=== PATIENT | female | born 1980 | race Caucasian/White ===

== ENCOUNTER 2016-08-13 10:22 | Outpatient (RCR) | payer BC ==
[2016-06-11 10:27] LABS: BASOPHILS % (AUTO) 0 % (0-10); EOSINOPHILS # (AUTO) 0.1 10^3/uL (0.0-0.3); EOSINOPHILS % (AUTO) 2 % (0-10); LYMPHOCYTES # (AUTO) 0.4 X 10^3 (1.0-4.0); LYMPHOCYTES % (AUTO) 9 % (12-44); MEAN CORPUSCULAR HEMOGLOBIN 33 PG (25-34); MEAN CORPUSCULAR HGB CONC 34 G/DL (32-36); MEAN CORPUSCULAR VOLUME 96 FL (80-99); MEAN PLATELET VOLUME 12.4 FL (7.4-10.4); MONOCYTES # (AUTO) 0.5 X 10^3 (0.0-1.0); MONOCYTES % (AUTO) 11 % (0-12); NEUTROPHILS # (AUTO) 3.6 X 10^3 (1.8-7.8); NEUTROPHILS % (AUTO) 78 % (42-75); PLATELET COUNT 69 10^3/uL (130-400); RED CELL DISTRIBUTION WIDTH 13.2 % (10.0-14.5); WHITE BLOOD COUNT 4.7 10^3/uL (4.3-11.0)
[2016-06-11 10:47] LABS: ALANINE AMINOTRANSFERASE 36 U/L (0-55); ALBUMIN 4.3 G/DL (3.2-4.5); ANION GAP 10 MMOL/L (5-14); ASPARTATE AMINO TRANSFERASE 64 U/L (5-34); BILIRUBIN,TOTAL 0.6 MG/DL (0.1-1.0); BLOOD UREA NITROGEN 10 MG/DL (7-18); BUN/CREATININE RATIO 13; CALCIUM 9.2 MG/DL (8.5-10.1); CARBON DIOXIDE 20 MMOL/L (21-32); CHLORIDE 108 MMOL/L (98-107); CREATININE SERUM 0.77 MG/DL (0.60-1.30); GFR ESTIMATED > 60; GLUCOSE 95 MG/DL (70-105); POTASSIUM 4.3 MMOL/L (3.6-5.0); SODIUM 138 MMOL/L (135-145); TOTAL PROTEIN 6.9 G/DL (6.4-8.2)
[2016-06-12 03:06] LABS: IMMUNOGLOBULIN IGA 45 mg/dL (71-263); IMMUNOGLOBULIN IGG 994 mg/dL (672-1680)
[2016-06-14 06:39] LABS: IMMUNOGLOBULIN IGM <10 mg/dL (47-209)
[2016-07-07 11:00] LABS: BASOPHILS % (AUTO) 0 % (0-10); EOSINOPHILS # (AUTO) 0.1 10^3/uL (0.0-0.3); EOSINOPHILS % (AUTO) 1 % (0-10); LYMPHOCYTES # (AUTO) 0.4 X 10^3 (1.0-4.0); LYMPHOCYTES % (AUTO) 10 % (12-44); MEAN CORPUSCULAR HEMOGLOBIN 32 PG (25-34); MEAN CORPUSCULAR HGB CONC 34 G/DL (32-36); MEAN CORPUSCULAR VOLUME 95 FL (80-99); MONOCYTES # (AUTO) 0.5 X 10^3 (0.0-1.0); MONOCYTES % (AUTO) 11 % (0-12); NEUTROPHILS # (AUTO) 3.3 X 10^3 (1.8-7.8); NEUTROPHILS % (AUTO) 77 % (42-75); PLATELET COUNT 83 10^3/uL (130-400); RED BLOOD COUNT 4.23 10^6/uL (4.35-5.85); RED CELL DISTRIBUTION WIDTH 13.2 % (10.0-14.5); WHITE BLOOD COUNT 4.3 10^3/uL (4.3-11.0)
[2016-07-07 11:40] LABS: ALANINE AMINOTRANSFERASE 37 U/L (0-55); ALBUMIN 4.2 G/DL (3.2-4.5); ANION GAP 8 MMOL/L (5-14); ASPARTATE AMINO TRANSFERASE 68 U/L (5-34); BILIRUBIN,TOTAL 0.5 MG/DL (0.1-1.0); BLOOD UREA NITROGEN 7 MG/DL (7-18); BUN/CREATININE RATIO 9; CALCIUM 9.4 MG/DL (8.5-10.1); CARBON DIOXIDE 24 MMOL/L (21-32); CHLORIDE 110 MMOL/L (98-107); CREATININE SERUM 0.82 MG/DL (0.60-1.30); GFR ESTIMATED > 60; GLUCOSE 100 MG/DL (70-105); SODIUM 142 MMOL/L (135-145); TOTAL PROTEIN 6.6 G/DL (6.4-8.2)
[2016-07-08 02:51] LABS: IMMUNOGLOBULIN IGA 46 mg/dL (71-263); IMMUNOGLOBULIN IGG 998 mg/dL (672-1680)
[2016-07-08 13:53] LABS: IMMUNOGLOBULIN IGM <10 mg/dL (47-209)
[~2016-08-13 10:22] MED LIST: ACETAMINOPHEN 325 MG TAB (TYLENOL) CANCER CTR ONE; ACETAMINOPHEN 500 MG TAB (TYLENOL) CANCER CTR PO PRN; CYANOCOBALAMIN INJ 1000 MCG/ML (CANCER CENTER) ONE; IMMUNE GLOBULIN,GAMMA (IGG) 200 ML IV SCH; diphenhydrAMINE 25 MG TAB (BENADRYL) CANCER CENTER PO SCH
[2016-08-13 10:34] LABS: BASOPHILS % (AUTO) 0 % (0-10); EOSINOPHILS # (AUTO) 0.1 10^3/uL (0.0-0.3); EOSINOPHILS % (AUTO) 1 % (0-10); LYMPHOCYTES # (AUTO) 0.5 X 10^3 (1.0-4.0); LYMPHOCYTES % (AUTO) 8 % (12-44); MEAN CORPUSCULAR HEMOGLOBIN 32 PG (25-34); MEAN CORPUSCULAR HGB CONC 34 G/DL (32-36); MEAN CORPUSCULAR VOLUME 95 FL (80-99); MEAN PLATELET VOLUME 11.3 FL (7.4-10.4); MONOCYTES # (AUTO) 0.8 X 10^3 (0.0-1.0); MONOCYTES % (AUTO) 11 % (0-12); NEUTROPHILS # (AUTO) 5.7 X 10^3 (1.8-7.8); NEUTROPHILS % (AUTO) 81 % (42-75); PLATELET COUNT 108 10^3/uL (130-400); RED BLOOD COUNT 4.23 10^6/uL (4.35-5.85); RED CELL DISTRIBUTION WIDTH 13.3 % (10.0-14.5); WHITE BLOOD COUNT 7.1 10^3/uL (4.3-11.0)
[2016-08-13 11:06] LABS: ALANINE AMINOTRANSFERASE 31 U/L (0-55); ALBUMIN 4.2 G/DL (3.2-4.5); ANION GAP 8 MMOL/L (5-14); ASPARTATE AMINO TRANSFERASE 56 U/L (5-34); BILIRUBIN,TOTAL 0.6 MG/DL (0.1-1.0); BLOOD UREA NITROGEN 11 MG/DL (7-18); BUN/CREATININE RATIO 12; CALCIUM 9.1 MG/DL (8.5-10.1); CARBON DIOXIDE 25 MMOL/L (21-32); CHLORIDE 106 MMOL/L (98-107); CREATININE SERUM 0.89 MG/DL (0.60-1.30); GFR ESTIMATED > 60; GLUCOSE 90 MG/DL (70-105); POTASSIUM 4.3 MMOL/L (3.6-5.0); SODIUM 139 MMOL/L (135-145); TOTAL PROTEIN 6.5 G/DL (6.4-8.2)
[2016-08-14 00:57] LABS: IMMUNOGLOBULIN IGA 42 mg/dL (71-263); IMMUNOGLOBULIN IGG 744 mg/dL (672-1680)
[2016-08-15 14:11] LABS: IMMUNOGLOBULIN IGM <10 mg/dL (47-209)
== END 2016-08-16 | disposition home or self-care (01) ==
LOC: ONC 10:22
PROVIDERS: ATTEND Internal Medicine Hematology & Oncology
DX: D83.9 Common variable immunodeficiency, unspecified (principal); D69.6 Thrombocytopenia, unspecified; K75.4 Autoimmune hepatitis; K50.90 Crohn's disease, unspecified, without complications; Z87.01 Personal history of pneumonia (recurrent); Z79.899 Other long term (current) drug therapy
CPT/HCPCS: 36415; 80053; 82784; 85025; 96365; 96366; 96372; 99213

== ENCOUNTER 2016-11-10 09:53 | Outpatient (RCR) | payer BC ==
[2016-09-13 10:42] LABS: BASOPHILS % (AUTO) 0 % (0-10); EOSINOPHILS # (AUTO) 0.1 10^3/uL (0.0-0.3); EOSINOPHILS % (AUTO) 1 % (0-10); LYMPHOCYTES # (AUTO) 0.5 X 10^3 (1.0-4.0); LYMPHOCYTES % (AUTO) 10 % (12-44); MEAN CORPUSCULAR HEMOGLOBIN 32 PG (25-34); MEAN CORPUSCULAR HGB CONC 33 G/DL (32-36); MEAN CORPUSCULAR VOLUME 96 FL (80-99); MEAN PLATELET VOLUME 11.4 FL (7.4-10.4); MONOCYTES # (AUTO) 0.6 X 10^3 (0.0-1.0); MONOCYTES % (AUTO) 12 % (0-12); NEUTROPHILS # (AUTO) 3.8 X 10^3 (1.8-7.8); NEUTROPHILS % (AUTO) 77 % (42-75); PLATELET COUNT 79 10^3/uL (130-400); RED BLOOD COUNT 3.98 10^6/uL (4.35-5.85); RED CELL DISTRIBUTION WIDTH 13.6 % (10.0-14.5); WHITE BLOOD COUNT 4.9 10^3/uL (4.3-11.0)
[2016-09-13 11:04] LABS: ALANINE AMINOTRANSFERASE 33 U/L (0-55); ANION GAP 7 MMOL/L (5-14); ASPARTATE AMINO TRANSFERASE 53 U/L (5-34); BILIRUBIN,TOTAL 0.4 MG/DL (0.1-1.0); BLOOD UREA NITROGEN 8 MG/DL (7-18); BUN/CREATININE RATIO 9; CARBON DIOXIDE 25 MMOL/L (21-32); CHLORIDE 108 MMOL/L (98-107); CREATININE SERUM 0.85 MG/DL (0.60-1.30); GFR ESTIMATED > 60; GLUCOSE 96 MG/DL (70-105); POTASSIUM 4.1 MMOL/L (3.6-5.0); SODIUM 140 MMOL/L (135-145); TOTAL PROTEIN 6.2 G/DL (6.4-8.2)
[2016-09-14 07:08] LABS: IMMUNOGLOBULIN IGA 47 mg/dL (71-263); IMMUNOGLOBULIN IGG 717 mg/dL (672-1680)
[2016-09-14 07:39] LABS: IMMUNOGLOBULIN IGM <10 mg/dL (47-209)
[2016-10-11 11:31] LABS: BASOPHILS % (AUTO) 0 % (0-10); EOSINOPHILS # (AUTO) 0.1 10^3/uL (0.0-0.3); EOSINOPHILS % (AUTO) 1 % (0-10); LYMPHOCYTES # (AUTO) 0.6 X 10^3 (1.0-4.0); LYMPHOCYTES % (AUTO) 10 % (12-44); MEAN CORPUSCULAR HEMOGLOBIN 32 PG (25-34); MEAN CORPUSCULAR HGB CONC 33 G/DL (32-36); MEAN CORPUSCULAR VOLUME 97 FL (80-99); MONOCYTES # (AUTO) 0.7 X 10^3 (0.0-1.0); MONOCYTES % (AUTO) 11 % (0-12); NEUTROPHILS # (AUTO) 4.8 X 10^3 (1.8-7.8); NEUTROPHILS % (AUTO) 77 % (42-75); PLATELET COUNT 87 10^3/uL (130-400); RED BLOOD COUNT 4.04 10^6/uL (4.35-5.85); RED CELL DISTRIBUTION WIDTH 13.6 % (10.0-14.5); WHITE BLOOD COUNT 6.3 10^3/uL (4.3-11.0)
[2016-10-11 11:56] LABS: ALANINE AMINOTRANSFERASE 32 U/L (0-55); ALBUMIN 4.1 G/DL (3.2-4.5); ANION GAP 11 MMOL/L (5-14); ASPARTATE AMINO TRANSFERASE 53 U/L (5-34); BILIRUBIN,TOTAL 0.6 MG/DL (0.1-1.0); BLOOD UREA NITROGEN 7 MG/DL (7-18); BUN/CREATININE RATIO 9; CALCIUM 9.1 MG/DL (8.5-10.1); CARBON DIOXIDE 20 MMOL/L (21-32); CHLORIDE 109 MMOL/L (98-107); CREATININE SERUM 0.82 MG/DL (0.60-1.30); GFR ESTIMATED > 60; GLUCOSE 90 MG/DL (70-105); POTASSIUM 4.2 MMOL/L (3.6-5.0); SODIUM 140 MMOL/L (135-145); TOTAL PROTEIN 6.5 G/DL (6.4-8.2)
[2016-10-12 07:14] LABS: IMMUNOGLOBULIN IGA 45 mg/dL (71-263); IMMUNOGLOBULIN IGG 765 mg/dL (672-1680)
[2016-10-12 08:05] LABS: IMMUNOGLOBULIN IGM <10 mg/dL (47-209)
[2016-11-08 11:19] LABS: BASOPHILS % (AUTO) 0 % (0-10); EOSINOPHILS # (AUTO) 0.1 10^3/uL (0.0-0.3); EOSINOPHILS % (AUTO) 2 % (0-10); LYMPHOCYTES # (AUTO) 0.6 X 10^3 (1.0-4.0); LYMPHOCYTES % (AUTO) 10 % (12-44); MEAN CORPUSCULAR HEMOGLOBIN 32 PG (25-34); MEAN CORPUSCULAR HGB CONC 33 G/DL (32-36); MEAN CORPUSCULAR VOLUME 97 FL (80-99); MEAN PLATELET VOLUME 11.5 FL (7.4-10.4); MONOCYTES # (AUTO) 0.6 X 10^3 (0.0-1.0); MONOCYTES % (AUTO) 11 % (0-12); NEUTROPHILS # (AUTO) 4.4 X 10^3 (1.8-7.8); NEUTROPHILS % (AUTO) 77 % (42-75); PLATELET COUNT 78 10^3/uL (130-400); RED BLOOD COUNT 3.81 10^6/uL (4.35-5.85); RED CELL DISTRIBUTION WIDTH 13.6 % (10.0-14.5); WHITE BLOOD COUNT 5.7 10^3/uL (4.3-11.0)
[2016-11-08 12:00] LABS: ALANINE AMINOTRANSFERASE 29 U/L (0-55); ANION GAP 8 MMOL/L (5-14); ASPARTATE AMINO TRANSFERASE 54 U/L (5-34); BILIRUBIN,TOTAL 0.7 MG/DL (0.1-1.0); BLOOD UREA NITROGEN 10 MG/DL (7-18); BUN/CREATININE RATIO 12; CARBON DIOXIDE 26 MMOL/L (21-32); CHLORIDE 107 MMOL/L (98-107); CREATININE SERUM 0.82 MG/DL (0.60-1.30); GFR ESTIMATED > 60; GLUCOSE 90 MG/DL (70-105); POTASSIUM 4.2 MMOL/L (3.6-5.0); SODIUM 141 MMOL/L (135-145); TOTAL PROTEIN 6.5 G/DL (6.4-8.2)
[2016-11-09 04:57] LABS: IMMUNOGLOBULIN IGA 41 mg/dL (71-263); IMMUNOGLOBULIN IGG 773 mg/dL (672-1680)
[2016-11-09 08:07] LABS: IMMUNOGLOBULIN IGM <10 mg/dL (47-209)
[~2016-11-10 09:53] MED LIST changes: -ACETAMINOPHEN 325 MG TAB (TYLENOL) CANCER CTR ONE
[2016-11-10] MEDS ORDERED: CYANOCOBALAMIN INJ 1000 MCG/ML (CANCER CENTER) ONE (13:16)
== END 2016-11-17 | disposition home or self-care (01) ==
LOC: ONC 09:53
PROVIDERS: ATTEND Internal Medicine Hematology & Oncology
DX: D83.9 Common variable immunodeficiency, unspecified (principal); D69.6 Thrombocytopenia, unspecified; K75.4 Autoimmune hepatitis; K50.90 Crohn's disease, unspecified, without complications; Z87.01 Personal history of pneumonia (recurrent); Z79.899 Other long term (current) drug therapy
CPT/HCPCS: 36415; 80053; 82784; 85025; 96365; 96366; 96372; 99213

== ENCOUNTER 2017-03-02 10:27 | Outpatient (RCR) | payer BC ==
[2016-12-06 09:41] LABS: BASOPHILS % (AUTO) 0 % (0-10); EOSINOPHILS # (AUTO) 0.1 10^3/uL (0.0-0.3); EOSINOPHILS % (AUTO) 2 % (0-10); LYMPHOCYTES # (AUTO) 0.5 X 10^3 (1.0-4.0); LYMPHOCYTES % (AUTO) 9 % (12-44); MEAN CORPUSCULAR HEMOGLOBIN 32 PG (25-34); MEAN CORPUSCULAR HGB CONC 33 G/DL (32-36); MEAN CORPUSCULAR VOLUME 98 FL (80-99); MEAN PLATELET VOLUME 11.6 FL (7.4-10.4); MONOCYTES # (AUTO) 0.7 X 10^3 (0.0-1.0); MONOCYTES % (AUTO) 12 % (0-12); NEUTROPHILS # (AUTO) 4.4 X 10^3 (1.8-7.8); NEUTROPHILS % (AUTO) 77 % (42-75); PLATELET COUNT 73 10^3/uL (130-400); RED BLOOD COUNT 3.85 10^6/uL (4.35-5.85); RED CELL DISTRIBUTION WIDTH 13.5 % (10.0-14.5); WHITE BLOOD COUNT 5.7 10^3/uL (4.3-11.0)
[2016-12-06 10:06] LABS: ALANINE AMINOTRANSFERASE 27 U/L (0-55); ANION GAP 7 MMOL/L (5-14); ASPARTATE AMINO TRANSFERASE 54 U/L (5-34); BILIRUBIN,TOTAL 0.4 MG/DL (0.1-1.0); BLOOD UREA NITROGEN 9 MG/DL (7-18); BUN/CREATININE RATIO 11; CALCIUM 9.1 MG/DL (8.5-10.1); CARBON DIOXIDE 25 MMOL/L (21-32); CHLORIDE 109 MMOL/L (98-107); GFR ESTIMATED > 60; GLUCOSE 92 MG/DL (70-105); SODIUM 141 MMOL/L (135-145); TOTAL PROTEIN 6.5 G/DL (6.4-8.2)
[2016-12-07 05:05] LABS: IMMUNOGLOBULIN IGA 38 mg/dL (71-263); IMMUNOGLOBULIN IGG 777 mg/dL (672-1680)
[2016-12-07 10:23] LABS: IMMUNOGLOBULIN IGM <10 mg/dL (47-209)
[2017-01-03 11:04] LABS: BASOPHILS % (AUTO) 0 % (0-10); EOSINOPHILS # (AUTO) 0.1 10^3/uL (0.0-0.3); EOSINOPHILS % (AUTO) 2 % (0-10); LYMPHOCYTES # (AUTO) 0.7 X 10^3 (1.0-4.0); LYMPHOCYTES % (AUTO) 12 % (12-44); MEAN CORPUSCULAR HEMOGLOBIN 32 PG (25-34); MEAN CORPUSCULAR HGB CONC 33 G/DL (32-36); MEAN CORPUSCULAR VOLUME 96 FL (80-99); MEAN PLATELET VOLUME 12.8 FL (7.4-10.4); MONOCYTES # (AUTO) 0.7 X 10^3 (0.0-1.0); MONOCYTES % (AUTO) 12 % (0-12); NEUTROPHILS # (AUTO) 4.1 X 10^3 (1.8-7.8); NEUTROPHILS % (AUTO) 73 % (42-75); PLATELET COUNT 80 10^3/uL (130-400); RED BLOOD COUNT 4.09 10^6/uL (4.35-5.85); RED CELL DISTRIBUTION WIDTH 13.7 % (10.0-14.5); WHITE BLOOD COUNT 5.5 10^3/uL (4.3-11.0)
[2017-01-03 11:28] LABS: ALANINE AMINOTRANSFERASE 29 U/L (0-55); ALBUMIN 4.1 G/DL (3.2-4.5); ANION GAP 10 MMOL/L (5-14); ASPARTATE AMINO TRANSFERASE 55 U/L (5-34); BILIRUBIN,TOTAL 0.5 MG/DL (0.1-1.0); BLOOD UREA NITROGEN 9 MG/DL (7-18); BUN/CREATININE RATIO 12; CALCIUM 9.1 MG/DL (8.5-10.1); CARBON DIOXIDE 24 MMOL/L (21-32); CHLORIDE 107 MMOL/L (98-107); CREATININE SERUM 0.78 MG/DL (0.60-1.30); GFR ESTIMATED > 60; GLUCOSE 91 MG/DL (70-105); POTASSIUM 4.1 MMOL/L (3.6-5.0); SODIUM 141 MMOL/L (135-145); TOTAL PROTEIN 6.7 G/DL (6.4-8.2)
[2017-01-04 05:23] LABS: IMMUNOGLOBULIN IGA 42 mg/dL (71-263); IMMUNOGLOBULIN IGG 769 mg/dL (672-1680)
[2017-01-04 08:09] LABS: IMMUNOGLOBULIN IGM <10 mg/dL (47-209)
[2017-01-27 12:43] LABS: BASOPHILS % (AUTO) 0 % (0-10); EOSINOPHILS # (AUTO) 0.1 10^3/uL (0.0-0.3); EOSINOPHILS % (AUTO) 2 % (0-10); LYMPHOCYTES # (AUTO) 0.5 X 10^3 (1.0-4.0); LYMPHOCYTES % (AUTO) 9 % (12-44); MEAN CORPUSCULAR HEMOGLOBIN 32 PG (25-34); MEAN CORPUSCULAR HGB CONC 33 G/DL (32-36); MEAN CORPUSCULAR VOLUME 98 FL (80-99); MEAN PLATELET VOLUME 12.7 FL (7.4-10.4); MONOCYTES # (AUTO) 0.7 X 10^3 (0.0-1.0); MONOCYTES % (AUTO) 13 % (0-12); NEUTROPHILS # (AUTO) 3.9 X 10^3 (1.8-7.8); NEUTROPHILS % (AUTO) 76 % (42-75); PLATELET COUNT 72 10^3/uL (130-400); RED BLOOD COUNT 4.03 10^6/uL (4.35-5.85); WHITE BLOOD COUNT 5.1 10^3/uL (4.3-11.0)
[2017-01-27 13:09] LABS: ALANINE AMINOTRANSFERASE 32 U/L (0-55); ALBUMIN 4.1 GM/DL (3.2-4.5); ANION GAP 8 MMOL/L (5-14); ASPARTATE AMINO TRANSFERASE 58 U/L (5-34); BILIRUBIN,TOTAL 0.5 MG/DL (0.1-1.0); BLOOD UREA NITROGEN 7 MG/DL (7-18); BUN/CREATININE RATIO 9 (0-20); CALCIUM 9.5 MG/DL (8.5-10.1); CARBON DIOXIDE 22 MMOL/L (21-32); CHLORIDE 110 MMOL/L (98-107); CREATININE SERUM 0.77 MG/DL (0.60-1.30); GFR ESTIMATED > 60; GLUCOSE 99 MG/DL (70-105); POTASSIUM 3.9 MMOL/L (3.6-5.0); SODIUM 140 MMOL/L (135-145); TOTAL PROTEIN 6.2 GM/DL (6.4-8.2)
[2017-01-28 04:17] LABS: IMMUNOGLOBULIN IGA 38 mg/dL (71-263); IMMUNOGLOBULIN IGG 825 mg/dL (672-1680)
[2017-01-28 07:28] LABS: IMMUNOGLOBULIN IGM 11 mg/dL (47-209)
[2017-02-28 10:50] LABS: BASOPHILS % (AUTO) 0 % (0-10); EOSINOPHILS # (AUTO) 0.1 10^3/uL (0.0-0.3); EOSINOPHILS % (AUTO) 2 % (0-10); LYMPHOCYTES # (AUTO) 0.4 X 10^3 (1.0-4.0); LYMPHOCYTES % (AUTO) 8 % (12-44); MEAN CORPUSCULAR HEMOGLOBIN 32 PG (25-34); MEAN CORPUSCULAR HGB CONC 33 G/DL (32-36); MEAN CORPUSCULAR VOLUME 96 FL (80-99); MEAN PLATELET VOLUME 11.8 FL (7.4-10.4); MONOCYTES # (AUTO) 0.7 X 10^3 (0.0-1.0); MONOCYTES % (AUTO) 14 % (0-12); NEUTROPHILS # (AUTO) 3.9 X 10^3 (1.8-7.8); NEUTROPHILS % (AUTO) 76 % (42-75); PLATELET COUNT 78 10^3/uL (130-400); RED BLOOD COUNT 4.03 10^6/uL (4.35-5.85); RED CELL DISTRIBUTION WIDTH 14.2 % (10.0-14.5); WHITE BLOOD COUNT 5.2 10^3/uL (4.3-11.0)
[2017-02-28 11:17] LABS: ALANINE AMINOTRANSFERASE 28 U/L (0-55); ANION GAP 8 MMOL/L (5-14); ASPARTATE AMINO TRANSFERASE 55 U/L (5-34); BILIRUBIN,TOTAL 0.6 MG/DL (0.1-1.0); BLOOD UREA NITROGEN 7 MG/DL (7-18); BUN/CREATININE RATIO 9; CALCIUM 8.9 MG/DL (8.5-10.1); CARBON DIOXIDE 22 MMOL/L (21-32); CHLORIDE 108 MMOL/L (98-107); CREATININE SERUM 0.78 MG/DL (0.60-1.30); GFR ESTIMATED > 60; GLUCOSE 91 MG/DL (70-105); POTASSIUM 4.3 MMOL/L (3.6-5.0); SODIUM 138 MMOL/L (135-145); TOTAL PROTEIN 6.8 GM/DL (6.4-8.2)
[2017-03-02 15:32] LABS: IMMUNOGLOBULIN IGA 39 mg/dL (71-263); IMMUNOGLOBULIN IGG 827 mg/dL (672-1680)
[2017-03-03 06:50] LABS: IMMUNOGLOBULIN IGM 10 mg/dL (47-209)
== END 2017-03-06 | disposition home or self-care (01) ==
LOC: ONC 10:27
PROVIDERS: ATTEND Internal Medicine Hematology & Oncology
DX: D83.8 Other common variable immunodeficiencies (principal); D69.59 Other secondary thrombocytopenia; J32.8 Other chronic sinusitis; K75.4 Autoimmune hepatitis; K50.90 Crohn's disease, unspecified, without complications; M13.89 Other specified arthritis, multiple sites; G47.33 Obstructive sleep apnea (adult) (pediatric); E66.01 Morbid (severe) obesity due to excess calories; Z68.41 Body mass index [BMI] 40.0-44.9, adult; Z87.01 Personal history of pneumonia (recurrent); Z79.899 Other long term (current) drug therapy
CPT/HCPCS: 36415; 80053; 82784; 83735; 85025; 96365; 96366; 96372; 99213

== ENCOUNTER 2017-04-27 13:21 | Outpatient (RCR) | payer BC ==
[2017-03-28 10:35] LABS: BASOPHILS % (AUTO) 0 % (0-10); EOSINOPHILS # (AUTO) 0.1 10^3/uL (0.0-0.3); EOSINOPHILS % (AUTO) 2 % (0-10); LYMPHOCYTES # (AUTO) 0.5 X 10^3 (1.0-4.0); LYMPHOCYTES % (AUTO) 9 % (12-44); MEAN CORPUSCULAR HEMOGLOBIN 32 PG (25-34); MEAN CORPUSCULAR HGB CONC 33 G/DL (32-36); MEAN CORPUSCULAR VOLUME 96 FL (80-99); MEAN PLATELET VOLUME 12.1 FL (7.4-10.4); MONOCYTES # (AUTO) 0.7 X 10^3 (0.0-1.0); MONOCYTES % (AUTO) 14 % (0-12); NEUTROPHILS # (AUTO) 3.7 X 10^3 (1.8-7.8); NEUTROPHILS % (AUTO) 74 % (42-75); PLATELET COUNT 83 10^3/uL (130-400); RED CELL DISTRIBUTION WIDTH 13.6 % (10.0-14.5); WHITE BLOOD COUNT 4.9 10^3/uL (4.3-11.0)
[2017-03-28 11:31] LABS: ALANINE AMINOTRANSFERASE 27 U/L (0-55); ALBUMIN 4.1 GM/DL (3.2-4.5); ANION GAP 9 MMOL/L (5-14); ASPARTATE AMINO TRANSFERASE 58 U/L (5-34); BILIRUBIN,TOTAL 0.6 MG/DL (0.1-1.0); BLOOD UREA NITROGEN 7 MG/DL (7-18); BUN/CREATININE RATIO 9; CALCIUM 9.3 MG/DL (8.5-10.1); CARBON DIOXIDE 23 MMOL/L (21-32); CHLORIDE 108 MMOL/L (98-107); CREATININE SERUM 0.78 MG/DL (0.60-1.30); GFR ESTIMATED > 60; GLUCOSE 95 MG/DL (70-105); SODIUM 140 MMOL/L (135-145); TOTAL PROTEIN 6.8 GM/DL (6.4-8.2)
[2017-03-29 11:25] LABS: IMMUNOGLOBULIN IGA 49 mg/dL (71-263); IMMUNOGLOBULIN IGG 829 mg/dL (672-1680)
[2017-03-29 11:55] LABS: IMMUNOGLOBULIN IGM 12 mg/dL (47-209)
[~2017-04-27 13:21] MED LIST changes: -CYANOCOBALAMIN INJ 1000 MCG/ML (CANCER CENTER) ONE
== END 2017-05-14 | disposition home or self-care (01) ==
LOC: ONC 13:21
PROVIDERS: ATTEND Internal Medicine Hematology & Oncology
DX: D83.9 Common variable immunodeficiency, unspecified (principal); D69.6 Thrombocytopenia, unspecified; K75.4 Autoimmune hepatitis; K50.90 Crohn's disease, unspecified, without complications; Z87.01 Personal history of pneumonia (recurrent); Z79.899 Other long term (current) drug therapy
CPT/HCPCS: 36415; 80053; 82784; 85025; 96365; 96366

== ENCOUNTER 2017-08-16 12:56 | Outpatient (RCR) | payer BC ==
[2017-05-23 10:39] LABS: BASOPHILS % (AUTO) 0 % (0-10); EOSINOPHILS # (AUTO) 0.1 10^3/uL (0.0-0.3); EOSINOPHILS % (AUTO) 3 % (0-10); HEMATOCRIT 38 % (35-52); HEMOGLOBIN 12.6 G/DL (11.5-16.0); LYMPHOCYTES # (AUTO) 0.4 X 10^3 (1.0-4.0); LYMPHOCYTES % (AUTO) 11 % (12-44); MEAN CORPUSCULAR HEMOGLOBIN 32 PG (25-34); MEAN CORPUSCULAR HGB CONC 33 G/DL (32-36); MEAN CORPUSCULAR VOLUME 96 FL (80-99); MEAN PLATELET VOLUME 10.9 FL (7.4-10.4); MONOCYTES # (AUTO) 0.5 X 10^3 (0.0-1.0); MONOCYTES % (AUTO) 13 % (0-12); NEUTROPHILS # (AUTO) 2.8 X 10^3 (1.8-7.8); NEUTROPHILS % (AUTO) 72 % (42-75); PLATELET COUNT 68 10^3/uL (130-400); RED BLOOD COUNT 3.94 10^6/uL (4.35-5.85); RED CELL DISTRIBUTION WIDTH 14.1 % (10.0-14.5); WHITE BLOOD COUNT 3.9 10^3/uL (4.3-11.0)
[2017-05-23 10:58] LABS: ALANINE AMINOTRANSFERASE 29 U/L (0-55); ALBUMIN 3.9 GM/DL (3.2-4.5); ALKALINE PHOSPHATASE 192 U/L (40-136); BILIRUBIN,TOTAL 0.7 MG/DL (0.1-1.0); BUN/CREATININE RATIO 12; CARBON DIOXIDE 27 MMOL/L (21-32); CHLORIDE 111 MMOL/L (98-107); CREATININE SERUM 0.75 MG/DL (0.60-1.30); GFR ESTIMATED > 60; GLUCOSE 92 MG/DL (70-105); POTASSIUM 3.8 MMOL/L (3.6-5.0); SODIUM 143 MMOL/L (135-145); TOTAL PROTEIN 6.6 GM/DL (6.4-8.2)
[2017-07-14 12:25] LABS: BASOPHILS % (AUTO) 0 % (0-10); EOSINOPHILS # (AUTO) 0.1 10^3/uL (0.0-0.3); EOSINOPHILS % (AUTO) 2 % (0-10); HEMATOCRIT 37 % (35-52); HEMOGLOBIN 12.4 G/DL (11.5-16.0); LYMPHOCYTES # (AUTO) 0.6 X 10^3 (1.0-4.0); LYMPHOCYTES % (AUTO) 14 % (12-44); MEAN CORPUSCULAR HEMOGLOBIN 32 PG (25-34); MEAN CORPUSCULAR HGB CONC 34 G/DL (32-36); MEAN CORPUSCULAR VOLUME 96 FL (80-99); MEAN PLATELET VOLUME 11.5 FL (7.4-10.4); MONOCYTES # (AUTO) 0.5 X 10^3 (0.0-1.0); MONOCYTES % (AUTO) 11 % (0-12); NEUTROPHILS # (AUTO) 3.1 X 10^3 (1.8-7.8); NEUTROPHILS % (AUTO) 73 % (42-75); PLATELET COUNT 77 10^3/uL (130-400); RED BLOOD COUNT 3.83 10^6/uL (4.35-5.85); RED CELL DISTRIBUTION WIDTH 13.4 % (10.0-14.5); WHITE BLOOD COUNT 4.3 10^3/uL (4.3-11.0)
[2017-07-14 12:50] LABS: ALANINE AMINOTRANSFERASE 26 U/L (0-55); ALBUMIN 3.8 GM/DL (3.2-4.5); ALKALINE PHOSPHATASE 188 U/L (40-136); BILIRUBIN,TOTAL 0.5 MG/DL (0.1-1.0); BUN/CREATININE RATIO 13; CALCIUM 8.7 MG/DL (8.5-10.1); CARBON DIOXIDE 25 MMOL/L (21-32); CHLORIDE 109 MMOL/L (98-107); CREATININE SERUM 0.78 MG/DL (0.60-1.30); GFR ESTIMATED > 60; GLUCOSE 104 MG/DL (70-105); POTASSIUM 3.8 MMOL/L (3.6-5.0); SODIUM 141 MMOL/L (135-145); TOTAL PROTEIN 6.7 GM/DL (6.4-8.2)
== END 2017-08-21 | disposition home or self-care (01) ==
LOC: ONC 12:56
PROVIDERS: ATTEND Internal Medicine Hematology & Oncology
DX: D83.9 Common variable immunodeficiency, unspecified (principal); D69.6 Thrombocytopenia, unspecified; K75.4 Autoimmune hepatitis; K50.90 Crohn's disease, unspecified, without complications; G47.33 Obstructive sleep apnea (adult) (pediatric); E66.01 Morbid (severe) obesity due to excess calories; Z68.41 Body mass index [BMI] 40.0-44.9, adult; Z87.01 Personal history of pneumonia (recurrent); Z79.899 Other long term (current) drug therapy
CPT/HCPCS: 36415; 80053; 82784; 85025; 96365; 96366

== ENCOUNTER → 2017-09-16 | Outpatient (CLI) | payer BC ==
[~2017-09-16] MED LIST changes: -ACETAMINOPHEN 500 MG TAB (TYLENOL) CANCER CTR PO PRN; +CATHETER FLUSH 10 ML SYR IVP PRN; -IMMUNE GLOBULIN,GAMMA (IGG) 200 ML IV SCH; +IOHEXOL 300 MG/ML 30 ML (OMNIPAQUE 300) VIAL IV ONE; -diphenhydrAMINE 25 MG TAB (BENADRYL) CANCER CENTER PO SCH
--- NOTE | 2017-09-19 14:30 | RADIOLOGY REPORT ---
NAME: JERRY CATALAN [facility] REC#: [id number] PT STATUS: REG CLI : 1980 PHYSICIAN: ALESHA WILSON MD ADMIT DATE: 09/16/17/RAD SIGNED Date of Exam:09/16/17 FLUOROSCOPY INDICATION: Evaluate right-sided Port-A-Cath. TECHNIQUE: The patient was brought to the fluoroscopy suite and placed on the table in the supine position. The port was accessed. Omnipaque 300 was injected during fluoroscopic observation. A total of 57 seconds of fluoroscopic time was utilized. FINDINGS: The port catheter on the right is intact. No kinking or fracture is seen. No extravasation of contrast is seen. There does appear to be poor free flow of contrast from the catheter tip. There is some collecting of contrast along the distal aspect of the catheter and within the SVC. This may be owing to a fibrin sheath. No other abnormalities are seen. IMPRESSION: 1. No evidence of port fracture or extravasation. 2. There is poor flow of contrast from the catheter tip. The findings are most suggestive of a fibrin sheath. Dictated on workstation # [id number] Dict: 09/16/17 1021 Trans: 09/16/17 1025 [id number] Interpreted by: SARAH FLOOD MD Electronically signed by: SARAH FLOOD MD [facility]
== END ==
LOC: RAD 09:30
PROVIDERS: ATTEND Internal Medicine Hematology & Oncology
DX: Z45.2 Encounter for adjustment and management of vascular access device (principal); T85.698A Other mechanical complication of other specified internal prosthetic devices, implants and grafts, initial encounter
CPT/HCPCS: 36598

== ENCOUNTER 2017-12-06 12:55 | Outpatient (RCR) | payer BC ==
[2017-09-09 12:06] LABS: BASOPHILS % (AUTO) 0 % (0-10); EOSINOPHILS # (AUTO) 0.1 10^3/uL (0.0-0.3); EOSINOPHILS % (AUTO) 1 % (0-10); HEMATOCRIT 36 % (35-52); LYMPHOCYTES # (AUTO) 0.5 X 10^3 (1.0-4.0); LYMPHOCYTES % (AUTO) 12 % (12-44); MEAN CORPUSCULAR HEMOGLOBIN 33 PG (25-34); MEAN CORPUSCULAR HGB CONC 34 G/DL (32-36); MEAN CORPUSCULAR VOLUME 97 FL (80-99); MEAN PLATELET VOLUME 12.3 FL (7.4-10.4); MONOCYTES # (AUTO) 0.5 X 10^3 (0.0-1.0); MONOCYTES % (AUTO) 12 % (0-12); NEUTROPHILS # (AUTO) 3.1 X 10^3 (1.8-7.8); NEUTROPHILS % (AUTO) 74 % (42-75); PLATELET COUNT 60 10^3/uL (130-400); RED BLOOD COUNT 3.66 10^6/uL (4.35-5.85); RED CELL DISTRIBUTION WIDTH 14.1 % (10.0-14.5); WHITE BLOOD COUNT 4.2 10^3/uL (4.3-11.0)
[2017-09-09 12:21] LABS: ALANINE AMINOTRANSFERASE 30 U/L (0-55); ALKALINE PHOSPHATASE 186 U/L (40-136); BILIRUBIN,TOTAL 0.5 MG/DL (0.1-1.0); BUN/CREATININE RATIO 11; CALCIUM 9.3 MG/DL (8.5-10.1); CARBON DIOXIDE 22 MMOL/L (21-32); CHLORIDE 110 MMOL/L (98-107); CREATININE SERUM 0.72 MG/DL (0.60-1.30); GFR ESTIMATED > 60; GLUCOSE 93 MG/DL (70-105); POTASSIUM 4.3 MMOL/L (3.6-5.0); SODIUM 142 MMOL/L (135-145); TOTAL PROTEIN 6.5 GM/DL (6.4-8.2)
[2017-11-04 12:02] LABS: BASOPHILS % (AUTO) 0 % (0-10); EOSINOPHILS % (AUTO) 1 % (0-10); HEMATOCRIT 35 % (35-52); HEMOGLOBIN 11.4 G/DL (11.5-16.0); LYMPHOCYTES # (AUTO) 0.4 X 10^3 (1.0-4.0); LYMPHOCYTES % (AUTO) 11 % (12-44); MEAN CORPUSCULAR HEMOGLOBIN 31 PG (25-34); MEAN CORPUSCULAR HGB CONC 33 G/DL (32-36); MEAN CORPUSCULAR VOLUME 95 FL (80-99); MONOCYTES # (AUTO) 0.4 X 10^3 (0.0-1.0); MONOCYTES % (AUTO) 12 % (0-12); NEUTROPHILS # (AUTO) 2.6 X 10^3 (1.8-7.8); NEUTROPHILS % (AUTO) 76 % (42-75); PLATELET COUNT 53 10^3/uL (130-400); RED BLOOD COUNT 3.65 10^6/uL (4.35-5.85); RED CELL DISTRIBUTION WIDTH 13.9 % (10.0-14.5); WHITE BLOOD COUNT 3.4 10^3/uL (4.3-11.0)
[2017-11-04 12:22] LABS: ALANINE AMINOTRANSFERASE 28 U/L (0-55); ALBUMIN 3.9 GM/DL (3.2-4.5); ALKALINE PHOSPHATASE 182 U/L (40-136); BILIRUBIN,TOTAL 0.6 MG/DL (0.1-1.0); BUN/CREATININE RATIO 11; CALCIUM 8.6 MG/DL (8.5-10.1); CARBON DIOXIDE 27 MMOL/L (21-32); CHLORIDE 110 MMOL/L (98-107); CREATININE SERUM 0.72 MG/DL (0.60-1.30); GFR ESTIMATED > 60; GLUCOSE 96 MG/DL (70-105); POTASSIUM 4.2 MMOL/L (3.6-5.0); SODIUM 141 MMOL/L (135-145); TOTAL PROTEIN 6.4 GM/DL (6.4-8.2)
[~2017-12-06 12:55] MED LIST changes: +ACETAMINOPHEN 500 MG TAB (TYLENOL) CANCER CTR PO PRN; +ALTEPLASE 2 MG (CATHFLO) CANCER CENTER IV ONE; -CATHETER FLUSH 10 ML SYR IVP PRN; +IMMUNE GLOBULIN GAMMA IV SCH; +IMMUNE GLOBULIN IV SCH; +IMMUNE GLOBULIN,GAMMA (IGG) 200 ML IV SCH; -IOHEXOL 300 MG/ML 30 ML (OMNIPAQUE 300) VIAL IV ONE; +MALTOSE IV SCH; +diphenhydrAMINE 25 MG TAB (BENADRYL) CANCER CENTER PO SCH
== END 2017-12-08 | disposition home or self-care (01) ==
LOC: ONC 12:55
PROVIDERS: ATTEND Internal Medicine Hematology & Oncology
DX: D83.9 Common variable immunodeficiency, unspecified (principal); D69.6 Thrombocytopenia, unspecified; K75.4 Autoimmune hepatitis; K50.90 Crohn's disease, unspecified, without complications; G47.33 Obstructive sleep apnea (adult) (pediatric); E66.01 Morbid (severe) obesity due to excess calories; Z68.41 Body mass index [BMI] 40.0-44.9, adult; Z87.01 Personal history of pneumonia (recurrent); Z79.899 Other long term (current) drug therapy
CPT/HCPCS: 36415; 36593; 80053; 82784; 85025; 96365; 96366

== ENCOUNTER → 2018-03-30 | Outpatient (RCR) | payer BC ==
[2017-12-30 10:14] LABS: BASOPHILS % (AUTO) 0 % (0-10); EOSINOPHILS # (AUTO) 0.1 10^3/uL (0.0-0.3); EOSINOPHILS % (AUTO) 1 % (0-10); HEMATOCRIT 39 % (35-52); HEMOGLOBIN 13.1 G/DL (11.5-16.0); LYMPHOCYTES # (AUTO) 0.5 X 10^3 (1.0-4.0); LYMPHOCYTES % (AUTO) 10 % (12-44); MEAN CORPUSCULAR HEMOGLOBIN 32 PG (25-34); MEAN CORPUSCULAR HGB CONC 34 G/DL (32-36); MEAN CORPUSCULAR VOLUME 96 FL (80-99); MEAN PLATELET VOLUME 12.4 FL (7.4-10.4); MONOCYTES # (AUTO) 0.7 X 10^3 (0.0-1.0); MONOCYTES % (AUTO) 15 % (0-12); NEUTROPHILS # (AUTO) 3.6 X 10^3 (1.8-7.8); NEUTROPHILS % (AUTO) 74 % (42-75); PLATELET COUNT 64 10^3/uL (130-400); RED BLOOD COUNT 4.04 10^6/uL (4.35-5.85); RED CELL DISTRIBUTION WIDTH 15.3 % (10.0-14.5); WHITE BLOOD COUNT 4.8 10^3/uL (4.3-11.0)
[2017-12-30 10:28] LABS: ALANINE AMINOTRANSFERASE 34 U/L (0-55); ALBUMIN 4.2 GM/DL (3.2-4.5); ALKALINE PHOSPHATASE 211 U/L (40-136); BILIRUBIN,TOTAL 0.7 MG/DL (0.1-1.0); BUN/CREATININE RATIO 12; CALCIUM 9.3 MG/DL (8.5-10.1); CARBON DIOXIDE 22 MMOL/L (21-32); CHLORIDE 111 MMOL/L (98-107); CREATININE SERUM 0.73 MG/DL (0.60-1.30); GFR ESTIMATED > 60; GLUCOSE 85 MG/DL (70-105); SODIUM 143 MMOL/L (135-145); TOTAL PROTEIN 6.6 GM/DL (6.4-8.2)
[2018-03-02 10:25] LABS: BASOPHILS % (AUTO) 0 % (0-10); EOSINOPHILS # (AUTO) 0.1 10^3/uL (0.0-0.3); EOSINOPHILS % (AUTO) 2 % (0-10); HEMATOCRIT 40 % (35-52); HEMOGLOBIN 13.7 G/DL (11.5-16.0); LYMPHOCYTES # (AUTO) 0.5 X 10^3 (1.0-4.0); LYMPHOCYTES % (AUTO) 10 % (12-44); MEAN CORPUSCULAR HEMOGLOBIN 33 PG (25-34); MEAN CORPUSCULAR HGB CONC 34 G/DL (32-36); MEAN CORPUSCULAR VOLUME 97 FL (80-99); MEAN PLATELET VOLUME 11.3 FL (7.4-10.4); MONOCYTES # (AUTO) 0.4 X 10^3 (0.0-1.0); MONOCYTES % (AUTO) 9 % (0-12); NEUTROPHILS # (AUTO) 3.5 X 10^3 (1.8-7.8); NEUTROPHILS % (AUTO) 78 % (42-75); PLATELET COUNT 71 10^3/uL (130-400); RED BLOOD COUNT 4.12 10^6/uL (4.35-5.85); RED CELL DISTRIBUTION WIDTH 14.2 % (10.0-14.5); WHITE BLOOD COUNT 4.5 10^3/uL (4.3-11.0)
[2018-03-02 10:48] LABS: ALANINE AMINOTRANSFERASE 31 U/L (0-55); ALBUMIN 4.1 GM/DL (3.2-4.5); ALKALINE PHOSPHATASE 195 U/L (40-136); BILIRUBIN,TOTAL 0.8 MG/DL (0.1-1.0); BUN/CREATININE RATIO 11; CALCIUM 9.3 MG/DL (8.5-10.1); CARBON DIOXIDE 26 MMOL/L (21-32); CHLORIDE 111 MMOL/L (98-107); CREATININE SERUM 0.76 MG/DL (0.60-1.30); GFR ESTIMATED > 60; GLUCOSE 109 MG/DL (70-105); POTASSIUM 3.8 MMOL/L (3.6-5.0); SODIUM 143 MMOL/L (135-145); TOTAL PROTEIN 6.6 GM/DL (6.4-8.2)
[~2018-03-30] MED LIST changes: -ALTEPLASE 2 MG (CATHFLO) CANCER CENTER IV ONE; -IMMUNE GLOBULIN GAMMA IV SCH; -IMMUNE GLOBULIN IV SCH; -MALTOSE IV SCH; +diphenhydrAMINE 25 MG TAB (BENADRYL) CANCER CENTER PO ONE; -diphenhydrAMINE 25 MG TAB (BENADRYL) CANCER CENTER PO SCH
== END | disposition home or self-care (01) ==
LOC: ONC 12-30 09:52
PROVIDERS: ATTEND Internal Medicine Hematology & Oncology
DX: D83.9 Common variable immunodeficiency, unspecified (principal); D69.6 Thrombocytopenia, unspecified; K75.4 Autoimmune hepatitis; K50.90 Crohn's disease, unspecified, without complications; G47.33 Obstructive sleep apnea (adult) (pediatric); E66.01 Morbid (severe) obesity due to excess calories; Z68.41 Body mass index [BMI] 40.0-44.9, adult; Z87.01 Personal history of pneumonia (recurrent); Z79.899 Other long term (current) drug therapy
CPT/HCPCS: 36415; 36591; 80053; 82784; 85025; 96365; 96366

== ENCOUNTER 2018-04-27 11:10 | Outpatient (RCR) | payer BC ==
[~2018-04-27 11:10] MED LIST changes: -diphenhydrAMINE 25 MG TAB (BENADRYL) CANCER CENTER PO ONE; +diphenhydrAMINE 25 MG TAB (BENADRYL) CANCER CENTER PO SCH
[2018-04-27 11:15] LABS: BASOPHILS % (AUTO) 0 % (0-10); EOSINOPHILS # (AUTO) 0.2 10^3/uL (0.0-0.3); EOSINOPHILS % (AUTO) 3 % (0-10); HEMATOCRIT 40 % (35-52); HEMOGLOBIN 13.7 G/DL (11.5-16.0); LYMPHOCYTES # (AUTO) 0.2 X 10^3 (1.0-4.0); LYMPHOCYTES % (AUTO) 4 % (12-44); MEAN CORPUSCULAR HEMOGLOBIN 34 PG (25-34); MEAN CORPUSCULAR HGB CONC 34 G/DL (32-36); MEAN CORPUSCULAR VOLUME 99 FL (80-99); MEAN PLATELET VOLUME 12.2 FL (7.4-10.4); MONOCYTES # (AUTO) 0.6 X 10^3 (0.0-1.0); MONOCYTES % (AUTO) 9 % (0-12); NEUTROPHILS # (AUTO) 5.3 X 10^3 (1.8-7.8); NEUTROPHILS % (AUTO) 84 % (42-75); PLATELET COUNT 54 10^3/uL (130-400); RED BLOOD COUNT 4.07 10^6/uL (4.35-5.85); RED CELL DISTRIBUTION WIDTH 14.1 % (10.0-14.5); WHITE BLOOD COUNT 6.3 10^3/uL (4.3-11.0)
[2018-04-27 11:39] LABS: ALANINE AMINOTRANSFERASE 44 U/L (0-55); ALBUMIN 3.9 GM/DL (3.2-4.5); ALKALINE PHOSPHATASE 196 U/L (40-136); BILIRUBIN,TOTAL 0.7 MG/DL (0.1-1.0); BUN/CREATININE RATIO 8; CARBON DIOXIDE 19 MMOL/L (21-32); CHLORIDE 108 MMOL/L (98-107); CREATININE SERUM 0.73 MG/DL (0.60-1.30); GFR ESTIMATED > 60; GLUCOSE 100 MG/DL (70-105); POTASSIUM 3.5 MMOL/L (3.6-5.0); SODIUM 138 MMOL/L (135-145); TOTAL PROTEIN 6.3 GM/DL (6.4-8.2)
== END 2018-05-14 | disposition home or self-care (01) ==
LOC: ONC 11:10
PROVIDERS: ATTEND Internal Medicine Hematology & Oncology
DX: D83.9 Common variable immunodeficiency, unspecified (principal); D69.6 Thrombocytopenia, unspecified; K75.4 Autoimmune hepatitis; K50.90 Crohn's disease, unspecified, without complications; G47.33 Obstructive sleep apnea (adult) (pediatric); E66.01 Morbid (severe) obesity due to excess calories; Z68.41 Body mass index [BMI] 40.0-44.9, adult; Z87.01 Personal history of pneumonia (recurrent); Z79.899 Other long term (current) drug therapy
CPT/HCPCS: 36591; 80053; 82784; 85025; 96365; 96366

== ENCOUNTER → 2018-05-01 | Outpatient (CLI) | payer BC ==
--- NOTE | 2018-05-01 17:50 | Diagnostic Imaging Report ---
INDICATION: Hemoptysis EXAM: PA and lateral chest FINDINGS: The heart size and pulmonary vascularity are normal. The lungs are clear. There are no effusions or pneumothoraces. Right subclavian central line tip projects over the right innominate vein. IMPRESSION: No acute abnormalities in the chest. Dictated by: Dictated on workstation # [id number]
== END ==
LOC: RAD 16:33
PROVIDERS: ATTEND Nurse Practitioner Family
DX: R04.2 Hemoptysis (principal); R06.00 Dyspnea, unspecified; Z95.828 Presence of other vascular implants and grafts
CPT/HCPCS: 71046

== ENCOUNTER 2018-08-17 13:19 | Outpatient (RCR) | payer BC ==
[2018-06-22 13:14] LABS: BASOPHILS % (AUTO) 0 % (0-10); EOSINOPHILS # (AUTO) 0.3 10^3/uL (0.0-0.3); EOSINOPHILS % (AUTO) 3 % (0-10); HEMATOCRIT 41 % (35-52); HEMOGLOBIN 14.2 G/DL (11.5-16.0); LYMPHOCYTES # (AUTO) 0.5 X 10^3 (1.0-4.0); LYMPHOCYTES % (AUTO) 6 % (12-44); MEAN CORPUSCULAR HEMOGLOBIN 34 PG (25-34); MEAN CORPUSCULAR HGB CONC 34 G/DL (32-36); MEAN CORPUSCULAR VOLUME 99 FL (80-99); MEAN PLATELET VOLUME 11.4 FL (7.4-10.4); MONOCYTES # (AUTO) 0.7 X 10^3 (0.0-1.0); MONOCYTES % (AUTO) 9 % (0-12); NEUTROPHILS # (AUTO) 6.4 X 10^3 (1.8-7.8); NEUTROPHILS % (AUTO) 81 % (42-75); PLATELET COUNT 102 10^3/uL (130-400); RED CELL DISTRIBUTION WIDTH 13.5 % (10.0-14.5)
[2018-06-22 13:41] LABS: ALANINE AMINOTRANSFERASE 33 U/L (0-55); ALBUMIN 4.1 GM/DL (3.2-4.5); ALKALINE PHOSPHATASE 211 U/L (40-136); BILIRUBIN,TOTAL 0.7 MG/DL (0.1-1.0); BUN/CREATININE RATIO 8; CALCIUM 9.5 MG/DL (8.5-10.1); CARBON DIOXIDE 20 MMOL/L (21-32); CHLORIDE 106 MMOL/L (98-107); CREATININE SERUM 0.77 MG/DL (0.60-1.30); GFR ESTIMATED > 60; GLUCOSE 83 MG/DL (70-105); POTASSIUM 3.8 MMOL/L (3.6-5.0); SODIUM 139 MMOL/L (135-145)
[2018-08-17] MEDS ORDERED: [UNRECOGNIZED DRUG - OTHER] IV SCH (13:30)
[2018-08-17] MEDS ORDERED: IMMUNE GLOBULIN GAMMA IV SCH (13:30)
== END 2018-08-23 | disposition home or self-care (01) ==
LOC: ONC 13:19
PROVIDERS: ATTEND Internal Medicine Hematology & Oncology
DX: D83.9 Common variable immunodeficiency, unspecified (principal); D69.6 Thrombocytopenia, unspecified; K75.4 Autoimmune hepatitis; K50.90 Crohn's disease, unspecified, without complications; G47.33 Obstructive sleep apnea (adult) (pediatric); E66.01 Morbid (severe) obesity due to excess calories; Z68.41 Body mass index [BMI] 40.0-44.9, adult; Z87.01 Personal history of pneumonia (recurrent); Z79.899 Other long term (current) drug therapy
CPT/HCPCS: 36591; 80053; 85025; 96365; 96366

== ENCOUNTER 2018-12-07 12:58 | Outpatient (RCR) | payer BC ==
[~2018-12-07 12:58] MED LIST changes: +IMMUNE GLOBULIN GAMMA IV SCH; +[UNRECOGNIZED DRUG - OTHER] IV SCH
[2018-12-07 13:44] LABS: BASOPHILS % (AUTO) 0 % (0-10); EOSINOPHILS # (AUTO) 0.1 10^3/uL (0.0-0.3); EOSINOPHILS % (AUTO) 3 % (0-10); HEMATOCRIT 38 % (35-52); HEMOGLOBIN 12.4 G/DL (11.5-16.0); LYMPHOCYTES # (AUTO) 0.5 X 10^3 (1.0-4.0); LYMPHOCYTES % (AUTO) 13 % (12-44); MEAN CORPUSCULAR HEMOGLOBIN 32 PG (25-34); MEAN CORPUSCULAR HGB CONC 33 G/DL (32-36); MEAN CORPUSCULAR VOLUME 97 FL (80-99); MONOCYTES # (AUTO) 0.4 X 10^3 (0.0-1.0); MONOCYTES % (AUTO) 9 % (0-12); NEUTROPHILS # (AUTO) 3.1 X 10^3 (1.8-7.8); NEUTROPHILS % (AUTO) 75 % (42-75); PLATELET COUNT 59 10^3/uL (130-400); RED CELL DISTRIBUTION WIDTH 13.3 % (10.0-14.5); WHITE BLOOD COUNT 4.1 10^3/uL (4.3-11.0)
[2018-12-07 14:02] LABS: ALANINE AMINOTRANSFERASE 38 U/L (0-55); ALBUMIN 4.1 GM/DL (3.2-4.5); ALKALINE PHOSPHATASE 119 U/L (40-136); BILIRUBIN,TOTAL 0.6 MG/DL (0.1-1.0); BUN/CREATININE RATIO 10; CALCIUM 9.2 MG/DL (8.5-10.1); CARBON DIOXIDE 22 MMOL/L (21-32); CHLORIDE 110 MMOL/L (98-107); GFR ESTIMATED > 60; GLUCOSE 89 MG/DL (70-105); POTASSIUM 4.4 MMOL/L (3.6-5.0); SODIUM 142 MMOL/L (135-145); TOTAL PROTEIN 6.4 GM/DL (6.4-8.2)
== END 2018-12-13 | disposition home or self-care (01) ==
LOC: ONC 12:58
PROVIDERS: ATTEND Internal Medicine Hematology & Oncology
DX: D83.9 Common variable immunodeficiency, unspecified (principal); D69.6 Thrombocytopenia, unspecified; K75.4 Autoimmune hepatitis; K50.90 Crohn's disease, unspecified, without complications; G47.33 Obstructive sleep apnea (adult) (pediatric); E66.01 Morbid (severe) obesity due to excess calories; Z68.41 Body mass index [BMI] 40.0-44.9, adult; Z87.01 Personal history of pneumonia (recurrent); Z79.899 Other long term (current) drug therapy
CPT/HCPCS: 80053; 85025; 96365; 96366; 96523

== ENCOUNTER 2019-03-29 12:57 | Outpatient (RCR) | payer BC ==
[2019-03-01 14:10] LABS: BASOPHILS % (AUTO) 0 % (0-10); EOSINOPHILS # (AUTO) 0.1 10^3/uL (0.0-0.3); EOSINOPHILS % (AUTO) 2 % (0-10); HEMATOCRIT 38 % (35-52); HEMOGLOBIN 12.8 G/DL (11.5-16.0); LYMPHOCYTES # (AUTO) 0.6 X 10^3 (1.0-4.0); LYMPHOCYTES % (AUTO) 10 % (12-44); MEAN CORPUSCULAR HEMOGLOBIN 32 PG (25-34); MEAN CORPUSCULAR HGB CONC 34 G/DL (32-36); MEAN CORPUSCULAR VOLUME 96 FL (80-99); MEAN PLATELET VOLUME 11.3 FL (7.4-10.4); MONOCYTES # (AUTO) 0.6 X 10^3 (0.0-1.0); MONOCYTES % (AUTO) 11 % (0-12); NEUTROPHILS # (AUTO) 4.4 X 10^3 (1.8-7.8); NEUTROPHILS % (AUTO) 77 % (42-75); PLATELET COUNT 58 10^3/uL (130-400); RED CELL DISTRIBUTION WIDTH 14.3 % (10.0-14.5); WHITE BLOOD COUNT 5.7 10^3/uL (4.3-11.0)
[2019-03-01 14:27] LABS: ALANINE AMINOTRANSFERASE 32 U/L (0-55); ALBUMIN 4.1 GM/DL (3.2-4.5); ALKALINE PHOSPHATASE 126 U/L (40-136); BILIRUBIN,TOTAL 0.7 MG/DL (0.1-1.0); BUN/CREATININE RATIO 12; CARBON DIOXIDE 24 MMOL/L (21-32); CHLORIDE 109 MMOL/L (98-107); CREATININE SERUM 0.74 MG/DL (0.60-1.30); GFR ESTIMATED > 60; GLUCOSE 87 MG/DL (70-105); POTASSIUM 3.7 MMOL/L (3.6-5.0); SODIUM 139 MMOL/L (135-145); TOTAL PROTEIN 6.5 GM/DL (6.4-8.2)
[~2019-03-29 12:57] MED LIST changes: +ACETAMINOPHEN 500 MG TAB (TYLENOL) CANCER CTR ONE; +ALTEPLASE 2 MG (CATHFLO) CANCER CENTER IV ONE; +IVIG 20 GM (PRIVIGEN) CANCER C 200 ML IV SCH; +IVIG 40 GM (PRIVIGEN) 400 ML IV SCH; +diphenhydrAMINE 25 MG TAB (BENADRYL) CANCER CENTER PO ONE
== END 2019-04-04 | disposition home or self-care (01) ==
LOC: ONC 12:57
PROVIDERS: ATTEND Internal Medicine Hematology & Oncology
DX: D83.9 Common variable immunodeficiency, unspecified (principal); D69.6 Thrombocytopenia, unspecified; K75.4 Autoimmune hepatitis; K50.90 Crohn's disease, unspecified, without complications; G47.33 Obstructive sleep apnea (adult) (pediatric); E66.01 Morbid (severe) obesity due to excess calories; Z68.41 Body mass index [BMI] 40.0-44.9, adult; Z87.01 Personal history of pneumonia (recurrent); Z79.899 Other long term (current) drug therapy
CPT/HCPCS: 36593; 80053; 82784; 85025; 96365; 96366

== ENCOUNTER → 2019-04-23 | Outpatient (CLI) | payer BC ==
[~2019-04-23] MED LIST changes: -ACETAMINOPHEN 500 MG TAB (TYLENOL) CANCER CTR ONE; -ACETAMINOPHEN 500 MG TAB (TYLENOL) CANCER CTR PO PRN; -ALTEPLASE 2 MG (CATHFLO) CANCER CENTER IV ONE; -IMMUNE GLOBULIN GAMMA IV SCH; -IMMUNE GLOBULIN,GAMMA (IGG) 200 ML IV SCH; -IVIG 20 GM (PRIVIGEN) CANCER C 200 ML IV SCH; -IVIG 40 GM (PRIVIGEN) 400 ML IV SCH; +RT-ALBUTEROL SULF 2.5 MG/3 ML PRE-MIX VIAL INH ONE; -[UNRECOGNIZED DRUG - OTHER] IV SCH; -diphenhydrAMINE 25 MG TAB (BENADRYL) CANCER CENTER PO ONE; -diphenhydrAMINE 25 MG TAB (BENADRYL) CANCER CENTER PO SCH
== END ==
LOC: RT 08:07
PROVIDERS: ATTEND Nurse Practitioner Family
DX: J45.909 Unspecified asthma, uncomplicated (principal); G47.33 Obstructive sleep apnea (adult) (pediatric); E66.01 Morbid (severe) obesity due to excess calories; D83.8 Other common variable immunodeficiencies
CPT/HCPCS: 94060; 94640; 94726; 94729

== ENCOUNTER → 2019-05-08 | Outpatient (CLI) | payer BC ==
[~2019-05-08] MED LIST changes: +HOLD METFORMIN - RECEIVED CONTRAST 20 ML VIAL IV SCH; +IOHEXOL 350 MG/ML 100 ML (OMNIPAQUE 350) VIAL IV ONE; +NS 100 ML (IVPB) BAG IV ONE; -RT-ALBUTEROL SULF 2.5 MG/3 ML PRE-MIX VIAL INH ONE
[2019-05-08 08:46] LABS: BUN/CREATININE RATIO 9; CREATININE SERUM 0.75 MG/DL (0.60-1.30); GFR ESTIMATED > 60
--- NOTE | 2019-05-08 09:09 | Diagnostic Imaging Report ---
PROCEDURE: CT chest with contrast only. TECHNIQUE: Multiple contiguous axial images were obtained through the chest after administration of intravenous contrast. Auto Exposure Controls were utilized during the CT exam to meet ALARA standards for radiation dose reduction. INDICATION: Lung disorder and allergic rhinitis. COMPARISON: Correlation is made with prior CT chest from 08/18/2011. FINDINGS: Right chest wall port has tip within the SVC. No axillary lymphadenopathy is detected. There are some chest wall collaterals present. This could be owing to a left subclavian stenosis. No definite mediastinal or hilar lymphadenopathy is detected. No pericardial or pleural fluid is detected. Parenchymal evaluation does show some scarring or subsegmental atelectasis in the right middle lobe. There is also some scarring in the lateral right lower lobe. No definite infiltrate or discrete mass is seen. The upper abdomen is unremarkable. IMPRESSION: 1. No evidence of thoracic lymphadenopathy, pulmonary mass or infiltrate. There is some scarring or atelectasis in the right middle lobe and right lower lobe. 2. Left chest wall collaterals, perhaps owing to left subclavian vein stenosis. Dictated by: Dictated on workstation # [id number]
== END ==
LOC: RAD 08:10
PROVIDERS: ATTEND Nurse Practitioner Family
DX: J45.909 Unspecified asthma, uncomplicated (principal); J98.4 Other disorders of lung; E66.9 Obesity, unspecified; D83.8 Other common variable immunodeficiencies; R94.2 Abnormal results of pulmonary function studies
CPT/HCPCS: 36415; 71260; 82565; 84520

== ENCOUNTER 2019-07-19 12:54 | Outpatient (RCR) | payer BC ==
[2019-04-26 13:19] LABS: BASOPHILS % (AUTO) 0 % (0-10); EOSINOPHILS # (AUTO) 0.1 10^3/uL (0.0-0.3); EOSINOPHILS % (AUTO) 2 % (0-10); HEMATOCRIT 40 % (35-52); HEMOGLOBIN 13.3 G/DL (11.5-16.0); LYMPHOCYTES # (AUTO) 0.6 X 10^3 (1.0-4.0); LYMPHOCYTES % (AUTO) 11 % (12-44); MEAN CORPUSCULAR HEMOGLOBIN 32 PG (25-34); MEAN CORPUSCULAR HGB CONC 33 G/DL (32-36); MEAN CORPUSCULAR VOLUME 96 FL (80-99); MEAN PLATELET VOLUME 11.5 FL (7.4-10.4); MONOCYTES # (AUTO) 0.6 X 10^3 (0.0-1.0); MONOCYTES % (AUTO) 11 % (0-12); NEUTROPHILS # (AUTO) 4.1 X 10^3 (1.8-7.8); NEUTROPHILS % (AUTO) 76 % (42-75); PLATELET COUNT 57 10^3/uL (130-400); RED CELL DISTRIBUTION WIDTH 13.8 % (10.0-14.5); WHITE BLOOD COUNT 5.4 10^3/uL (4.3-11.0)
[2019-04-26 13:42] LABS: ALANINE AMINOTRANSFERASE 25 U/L (0-55); ALBUMIN 4.2 GM/DL (3.2-4.5); ALKALINE PHOSPHATASE 117 U/L (40-136); BILIRUBIN,TOTAL 0.9 MG/DL (0.1-1.0); BUN/CREATININE RATIO 12; CALCIUM 9.4 MG/DL (8.5-10.1); CARBON DIOXIDE 29 MMOL/L (21-32); CHLORIDE 109 MMOL/L (98-107); CREATININE SERUM 0.77 MG/DL (0.60-1.30); GFR ESTIMATED > 60; GLUCOSE 86 MG/DL (70-105); SODIUM 144 MMOL/L (135-145); TOTAL PROTEIN 6.8 GM/DL (6.4-8.2)
[2019-06-21 13:25] LABS: BASOPHILS % (AUTO) 0 % (0-10); EOSINOPHILS # (AUTO) 0.1 10^3/uL (0.0-0.3); EOSINOPHILS % (AUTO) 2 % (0-10); HEMATOCRIT 38 % (35-52); HEMOGLOBIN 12.7 G/DL (11.5-16.0); LYMPHOCYTES # (AUTO) 0.6 X 10^3 (1.0-4.0); LYMPHOCYTES % (AUTO) 12 % (12-44); MEAN CORPUSCULAR HEMOGLOBIN 32 PG (25-34); MEAN CORPUSCULAR HGB CONC 33 G/DL (32-36); MEAN CORPUSCULAR VOLUME 95 FL (80-99); MONOCYTES # (AUTO) 0.6 X 10^3 (0.0-1.0); MONOCYTES % (AUTO) 13 % (0-12); NEUTROPHILS # (AUTO) 3.5 X 10^3 (1.8-7.8); NEUTROPHILS % (AUTO) 74 % (42-75); PLATELET COUNT 58 10^3/uL (130-400); RED CELL DISTRIBUTION WIDTH 13.6 % (10.0-14.5); WHITE BLOOD COUNT 4.8 10^3/uL (4.3-11.0)
[2019-06-21 13:44] LABS: ALANINE AMINOTRANSFERASE 25 U/L (0-55); ALBUMIN 4.3 GM/DL (3.2-4.5); ALKALINE PHOSPHATASE 105 U/L (40-136); BILIRUBIN,TOTAL 0.7 MG/DL (0.1-1.0); BUN/CREATININE RATIO 9; CALCIUM 8.9 MG/DL (8.5-10.1); CARBON DIOXIDE 20 MMOL/L (21-32); CHLORIDE 109 MMOL/L (98-107); GFR ESTIMATED > 60; GLUCOSE 91 MG/DL (70-105); POTASSIUM 4.2 MMOL/L (3.6-5.0); SODIUM 138 MMOL/L (135-145); TOTAL PROTEIN 6.7 GM/DL (6.4-8.2)
[~2019-07-19 12:54] MED LIST changes: +ACETAMINOPHEN 500 MG TAB (TYLENOL) CANCER CTR PO PRN; -HOLD METFORMIN - RECEIVED CONTRAST 20 ML VIAL IV SCH; -IOHEXOL 350 MG/ML 100 ML (OMNIPAQUE 350) VIAL IV ONE; +IVIG 20 GM (PRIVIGEN) CANCER C 200 ML IV SCH; -NS 100 ML (IVPB) BAG IV ONE; +diphenhydrAMINE 25 MG TAB (BENADRYL) CANCER CENTER PO SCH
[2019-07-25] MEDS ORDERED: AZAT50TA16 PO (12:49)
[2019-07-25] MEDS ORDERED: FLUT1BLS IH (12:49)
[2019-07-25] MEDS ORDERED: MONT10TA24 PO (13:16)
[2019-07-25] MEDS ORDERED: CHOL100055 PO (13:16)
[2019-07-25] MEDS ORDERED: RT-ALBUINH IH (13:16)
[2019-07-25] MEDS ORDERED: SULF-222 PO (13:16)
[2019-07-25] MEDS ORDERED: CYAN100092 IJ (13:16)
[2019-07-25] MEDS ORDERED: PEDI1TAB36 PO (13:16)
[2019-07-25] MEDS ORDERED: CITA20TA12 PO (13:16)
== END 2019-07-25 | disposition home or self-care (01) ==
LOC: ONC 12:54
PROVIDERS: ATTEND Internal Medicine Hematology & Oncology
DX: D83.9 Common variable immunodeficiency, unspecified (principal); D69.6 Thrombocytopenia, unspecified; K75.4 Autoimmune hepatitis; K50.90 Crohn's disease, unspecified, without complications; G47.33 Obstructive sleep apnea (adult) (pediatric); E66.01 Morbid (severe) obesity due to excess calories; Z68.41 Body mass index [BMI] 40.0-44.9, adult; Z87.01 Personal history of pneumonia (recurrent); Z79.899 Other long term (current) drug therapy
CPT/HCPCS: 80053; 85025; 96365; 96366

== ENCOUNTER 2019-07-25 06:28 | Outpatient (CLI) | payer BC ==
[~2019-07-25] VITALS: Ht 160 cm; Wt 113.6 kg
[2019-07-25] MEDS ORDERED: FLUT1BLS IH (12:49)
[2019-07-25] MEDS ORDERED: AZAT50TA16 PO (12:49)
[2019-07-25] MEDS ORDERED: CYAN100092 IJ (13:16)
[2019-07-25] MEDS ORDERED: MONT10TA24 PO (13:16)
[2019-07-25] MEDS ORDERED: SULF-222 PO (13:16)
[2019-07-25] MEDS ORDERED: RT-ALBUINH IH (13:16)
[2019-07-25] MEDS ORDERED: CITA20TA12 PO (13:16)
[2019-07-25] MEDS ORDERED: PEDI1TAB36 PO (13:16)
[2019-07-25] MEDS ORDERED: CHOL100055 PO (13:16)
== END 2019-07-25 13:17 ==
LOC: PREOP 06:28
PROVIDERS: ATTEND Surgery
DX: Z01.818 Encounter for other preprocedural examination (principal)

== ENCOUNTER 2019-08-02 09:51 | Day surgery (SDC) | payer BC ==
--- NOTE | 2019-07-17 05:18 | HISTORY AND PHYSICAL ---
DATE OF SERVICE: PROCEDURE DATE: 08/02/2019 ATTENDING PHYSICIANS: Dr. Amaya and Dr. Starr. HISTORY OF PRESENT ILLNESS: The patient is a 38-year-old female, who was referred over to us in need of a new Groshong port. The patient reports that she currently has a Groshong port on the right upper chest wall. However, this has been becoming increasingly more difficult to flush as well as has not been able to have any blood draws from that port. She does have Crohn's disease and does a get monthly IVIG infusions. She reports that she has had two other ports in the past with one being on the right overlying the right ribs as well as the left upper chest wall. She denies any other issues. PAST MEDICAL HISTORY: Crohn's disease, iron deficiency anemia, vitamin D deficiency, B12 deficiency, asthma, obstructive sleep apnea, anxiety and depression. PAST SURGICAL HISTORY: Cut down at 3 years of age, three ports placed since 1999, 2005 and 2006, colon resection x2, incisional hernia repair around 2009, trachea 3 years of age. ALLERGIES: SPECIFIC BRAND OF HER IVIG. MEDICATIONS: 1. Humira every two weeks. 2. Flebogamma monthly. 3. Multivitamin. 4. Vitamin D 10,000 units. 5. B12 shot. 6. Celexa 40 mg. 7. Bactrim-DS. 8. Singulair 10 mg. 9. Zyrtec. 10. Imuran. 11. . 12. ProAir. SOCIAL HISTORY: Negative for smoke or rare for alcohol. FAMILY HISTORY: Paternal grandmother with breast cancer and diabetes. Maternal grandmother with uterine and ovarian cancer and diabetes. Mother with hypertension. Father with stroke and myocardial infarction. REVIEW OF SYSTEMS: A well-nourished female in no acute distress. She is not experiencing any shortness of breath or difficulty breathing. No chest pain, palpitations or diaphoresis. No nausea, vomiting or abdominal pain. No diarrhea or constipation. No red blood per rectum. No dark tarry stools. No fever or chills. No recent inadvertent weight loss. All other review of systems are negative. PHYSICAL EXAMINATION: VITAL SIGNS: Blood pressure is 132/70. Current weight is 253.7 at 5 feet 3 inches. CHEST: Clear. Good breath sounds bilaterally. HEART: Regular. No murmurs. EXTREMITIES: No lower extremity edema. Negative Homans sign. HEENT: No scleral icterus. No cervical lymphadenopathy. ABDOMEN: Soft, nontender, and nondistended. SKIN: Warm, dry, and pink. She does have a current Groshong port of the right upper chest wall. NEUROLOGIC: Awake, alert and oriented x3. ASSESSMENT AND PLAN: A 38-year-old female with Crohn's disease, who does get monthly IVIG infusions and currently has a malfunctioning port. At this time, we will recommend proceeding with removal and replacement of a Groshong port. The risks and benefits of the procedure as well as procedure and home care instructions were explained to the patient. The patient verbalized understanding of instructions and agrees to proceed as planned. At this time, we will proceed with removal and replacement of the Groshong implantable port and catheter. Job ID: [id number] DocumentID: [id number] Dictated Date: 07/03/2019 10:10:16 Soundscriber Mechanic Date: 07/03/2019 12:24:34 Dictated By: LATIA MILES APRN
[2019-08-02] VITALS (8 sets, daily range): BP systolic 116–146; BP diastolic 61–86
[~2019-08-02] VITALS: Ht 160 cm; Wt 113.6 kg
[~2019-08-02 09:51] MED LIST changes: -ACETAMINOPHEN 500 MG TAB (TYLENOL) CANCER CTR PO PRN; +AZAT50TA16 PO; +CHOL100055 PO; +CITA20TA12 PO; +CYAN100092 IJ; +FLUT1BLS IH; -IVIG 20 GM (PRIVIGEN) CANCER C 200 ML IV SCH; +MONT10TA24 PO; +PEDI1TAB36 PO; +RT-ALBUINH IH; +SULF-222 PO; -diphenhydrAMINE 25 MG TAB (BENADRYL) CANCER CENTER PO SCH
--- NOTE | 2019-08-02 10:09 | Progress Note-Pre Operative ---
Pre-Operative Progress Note H&P Reviewed The H&P was reviewed, patient examined and no changes noted. Date Seen by Provider: Aug 02, 2019 Time Seen by Provider: 10:00 Date H&P Reviewed: Aug 02, 2019 Time H&P Reviewed: 10:00 Pre-Operative Diagnosis: crohns, poor peripheral venous circulation. HALLIE KINSEY MD Aug 02, 2019 10:09
[2019-08-02] MEDS ORDERED: ceFAZolin 2 GM/50 ML NS 50 ML IV ONE (10:15)
[2019-08-02] MEDS ORDERED: LACTATED RINGERS 1,000 ML IV PRN (10:15)
[2019-08-02] MEDS ORDERED: HYDROcodone/APAP 5 MG/325 MG (LORTAB) TAB PO ONE (10:15)
[2019-08-02] MEDS ORDERED: ACETAMINOPHEN 325 MG TABLET PO PRN (10:15)
[2019-08-02] MEDS ORDERED: ONDANSETRON 4 MG/2 ML (SDV) Z0FRAN IVP PRN ×2 (10:15→13:00)
[2019-08-02] MEDS ORDERED: morphine INJ 10 MG/ML 1ML (SYR OR VIAL) IVP PRN ×2 (10:15)
[2019-08-02] MEDS ORDERED: BUP/EPI 0.5% 1:200,000 (SENSORCAINE) 30 ML VIAL ONE ×2 (10:17→12:01)
[2019-08-02] MEDS ORDERED: HEParin (CENTRAL IV FLUSH) 500 UNIT/5 ML SYR ONE ×2 (10:17→12:20)
[2019-08-02] MEDS ORDERED: 0.9% SODIUM CHLORIDE PF INJ 20 ML VIAL ONE (10:17)
[2019-08-02] MEDS ORDERED: [UNRECOGNIZED DRUG - OTHER] (10:27)
[2019-08-02] MEDS ORDERED: ADAL40SY SQ (10:27)
[2019-08-02] MEDS ORDERED: MIDAZOLAM 2 MG/2 ML (VERSED) VIAL ONE (10:30)
[2019-08-02] MEDS ORDERED: PROPOFOL INJECTION 50 ML IV ONE ×2 (10:30→12:06)
[2019-08-02] MEDS ORDERED: ONDANSETRON 4 MG/2 ML (SDV) Z0FRAN ONE (10:30)
[2019-08-02] MEDS ORDERED: ceFAZolin 2 GM/50 ML NS 50 ML ONE (10:37)
[2019-08-02] MEDS ORDERED: fentaNYL INJECTION 100 MCG/2 ML AMP ONE (12:01)
[2019-08-02] MEDS ORDERED: KETAMINE/NaCl 50 MG/5 ML SYRINGE (ED ONLY) ONE (12:03)
--- NOTE | 2019-08-02 12:33 | Progress Note-Post Operative ---
Post-Operative Progess Note Surgeon (s)/Supply Chain Specialist (s) Surgeon HALLIE KINSEY MD Supply Chain Specialist: stacey archer APRN Pre-Operative Diagnosis crohns, poor peripheral venous circulation. Post-Operative Diagnosis same Procedure & Operative Findings Date of Procedure 08/02/19 Procedure Performed/Findings removal and replacement right subclavian groshong catheter under flouroscopy.l Anesthesia Type mac with local Estimated Blood Loss Estimated blood loss (mL): minimal Specimens/Packing Specimens Removed none HALLIE KINSEY MD Aug 02, 2019 12:33
[2019-08-02] MEDS ORDERED: RT-ALBUTEROL INHALER HFA (PROAIR HFA) 8.5 GM IH ONE (12:35)
[2019-08-02] MEDS ORDERED: RT-ALBUTEROL SULF 2.5 MG/3 ML PRE-MIX VIAL ONE (12:40)
--- NOTE | 2019-08-02 12:41 | Diagnostic Imaging Report ---
INDICATION: Central line placement IMPRESSION: 1 digital image and 297 seconds of fluoroscopy was used by Dr. Hoffman during right subclavian Port-A-Cath placement. Catheter tip projects over the SVC. Dictated by: Dictated on workstation # [id number]
--- NOTE | 2019-08-02 12:57 | Anesthesia-General Post-Op ---
MAC Patient Condition Mental Status/LOC: Same as Preop Cardiovascular: Satisfactory Nausea/Vomiting: Absent Respiratory: Satisfactory Pain: Controlled Complications: Absent Post Op Complications Complications None Follow Up Care/Instructions Patient Instructions None needed. Anesthesiology Discharge Order Discharge Order Patient is doing well, no complaints, stable vital signs, no apparent adverse anesthesia problems. No complications reported per nursing. SOLITARIO GREEN CRNA Aug 02, 2019 12:56
[2019-08-02] MEDS ORDERED: morphine INJ 10 MG/ML 1ML (SYR OR VIAL) IVP ONE (13:00)
[2019-08-02] MEDS ORDERED: RT-ALBUTEROL SULF 2.5 MG/3 ML PRE-MIX VIAL INH ONE (13:00)
[2019-08-02] MEDS ORDERED: PROMETHAZINE INJ 25 MG/ML (PHENERGAN) AMP IVP ONE (13:00)
--- NOTE | 2019-08-02 13:15 | Diagnostic Imaging Report ---
INDICATION: Central line placement. Portable chest 1:01 p.m. FINDINGS: Right subclavian Port-A-Cath tip projects over the SVC. Heart size and pulmonary vascularity are normal. Lungs are clear. There are no effusions or pneumothoraces. IMPRESSION: No acute abnormalities in the chest. Dictated by: Dictated on workstation # [id number]
[2019-08-02] MEDS ORDERED: HYDROcodone/APAP 5 MG/325 MG (LORTAB) TAB ONE (13:30)
[2019-08-02] MEDS ORDERED: CATHETER FLUSH 10 ML SYR IV PRN (13:45)
[2019-08-02] MEDS ORDERED: ACHD5005 PO (13:51)
--- NOTE | 2019-08-02 23:38 | OPERATIVE REPORT ---
DATE OF SERVICE: 08/02/2019 ATTENDING PRIMARY CARE PHYSICIAN: Kamini Starr DO PREOPERATIVE DIAGNOSIS: Symptomatic Crohn's disease, poor peripheral venous circulation. POSTOPERATIVE DIAGNOSIS: Symptomatic Crohn's disease, poor peripheral venous circulation. PROCEDURE: Removal and replacement of a central vein catheter with subcutaneous reservoir in the right subclavian vein. SURGEON: Cherelle Kinsey MD DOCUMENTATION NURSE: Tereso Goldberg APRN. ANESTHESIA: Monitored anesthesia care with local. ESTIMATED BLOOD LOSS: Minimal. FINDINGS: Catheter tip at superior vena cava - right atrial junction. DISPOSITION: The patient tolerated the procedure well. INDICATIONS: The patient is a 38-year-old female in need of a Groshong implantable catheter. She does have a catheter in the right subclavian vein; however, this has been increasingly difficult to flush and has not been able to draw blood. She has a history of Crohn's disease and has had 2 previous surgeries for this. She does get monthly IVIG infusions. She has had multiple central IV accesses in the past. DESCRIPTION OF PROCEDURE: The patient was brought to the operating room, laid supine on the table. After adequate IV pain and sedative medications and general endotracheal intubation, the chest and neck were prepped and draped in standard surgical fashion. An incision was made along the previous incision site after the skin and subcutaneous tissue was anesthetized using 1% lidocaine with epinephrine. A skin incision along the previous incision site was then made using a 15 blade. The subcutaneous reservoir was then dissected out of the capsule using electrocautery as well as blunt dissection. The catheter was then pulled out intact. Good hemostasis was observed and we then proceeded to place a new catheter. The right subclavian vein was then cannulated with drawing of venous blood. The guidewire was then inserted under fluoroscopy. The cannulating needle removed and a skin incision made using 15 blade. The dilator and sheath were then placed over the guidewire and the dilator and guidewire were then removed and the catheter was placed through the sheath until the tip of the catheter was at the superior vena cava - right atrial junction. The inner wire within the catheter was then removed and the catheter tunneled through the subcutaneous tissue to the previous subcutaneous reservoir opening site. The catheter cut down to size and the port placed onto the catheter. The port was then placed in the previous subcutaneous reservoir. The port was then sutured to the anterior pectoralis fascia using interrupted 3-0 Vicryl sutures. The subcutaneous tissue was then reapproximated using 3-0 Vicryl interrupted sutures. The skin was closed using 4-0 Monocryl running subcuticular suture. The wound was then cleaned and covered with Dermabond. The patient tolerated the procedure well. We will get a post-procedure chest x-ray and once confirmation of placement, the catheter may be accessed and used at any time. Job ID: [id number] DocumentID: [id number] Dictated Date: 08/02/2019 12:43:58 Supervisor Color Paste Mixing Date: 08/02/2019 21:52:27 Dictated By: CHERELLE KINSEY MD
== END 2019-08-02 14:30 | disposition home or self-care (01) ==
LOC: SDC 09:51
PROVIDERS: ATTEND Surgery
DX: I87.2 Venous insufficiency (chronic) (peripheral) (principal); K50.90 Crohn's disease, unspecified, without complications; G50.9 Disorder of trigeminal nerve, unspecified; J44.9 Chronic obstructive pulmonary disease, unspecified; G47.33 Obstructive sleep apnea (adult) (pediatric); E55.9 Vitamin D deficiency, unspecified; E53.8 Deficiency of other specified B group vitamins; F41.9 Anxiety disorder, unspecified; F32.9 Major depressive disorder, single episode, unspecified; Z88.8 Allergy status to other drugs, medicaments and biological substances; Z99.89 Dependence on other enabling machines and devices; Z79.899 Other long term (current) drug therapy; Z83.3 Family history of diabetes mellitus; Z80.41 Family history of malignant neoplasm of ovary; Z82.49 Family history of ischemic heart disease and other diseases of the circulatory system; Z80.3 Family history of malignant neoplasm of breast; Z82.3 Family history of stroke
CPT/HCPCS: 71045; 84703; 87081

== ENCOUNTER 2019-11-08 13:18 | Outpatient (RCR) | payer BC ==
[2019-09-13 11:17] LABS: BASOPHILS % (AUTO) 0 % (0-10); EOSINOPHILS % (AUTO) 1 % (0-10); HEMATOCRIT 38 % (35-52); HEMOGLOBIN 12.3 G/DL (11.5-16.0); LYMPHOCYTES # (AUTO) 0.5 X 10^3 (1.0-4.0); LYMPHOCYTES % (AUTO) 13 % (12-44); MEAN CORPUSCULAR HEMOGLOBIN 31 PG (25-34); MEAN CORPUSCULAR HGB CONC 33 G/DL (32-36); MEAN CORPUSCULAR VOLUME 95 FL (80-99); MEAN PLATELET VOLUME 12.6 FL (7.4-10.4); MONOCYTES # (AUTO) 0.3 X 10^3 (0.0-1.0); MONOCYTES % (AUTO) 9 % (0-12); NEUTROPHILS % (AUTO) 78 % (42-75); PLATELET COUNT 61 10^3/uL (130-400); RED CELL DISTRIBUTION WIDTH 14.3 % (10.0-14.5); WHITE BLOOD COUNT 3.8 10^3/uL (4.3-11.0)
[2019-09-13 11:38] LABS: ALANINE AMINOTRANSFERASE 34 U/L (0-55); ALKALINE PHOSPHATASE 97 U/L (40-136); BILIRUBIN,TOTAL 0.7 MG/DL (0.1-1.0); BUN/CREATININE RATIO 10; CARBON DIOXIDE 21 MMOL/L (21-32); CHLORIDE 111 MMOL/L (98-107); CREATININE SERUM 0.78 MG/DL (0.60-1.30); GFR ESTIMATED > 60; GLUCOSE 122 MG/DL (70-105); POTASSIUM 3.6 MMOL/L (3.6-5.0); SODIUM 143 MMOL/L (135-145); TOTAL PROTEIN 6.5 GM/DL (6.4-8.2)
[2019-11-08 13:15] LABS: BASOPHILS % (AUTO) 0 % (0-10); EOSINOPHILS # (AUTO) 0.1 10^3/uL (0.0-0.3); EOSINOPHILS % (AUTO) 2 % (0-10); HEMATOCRIT 37 % (35-52); HEMOGLOBIN 12.6 G/DL (11.5-16.0); LYMPHOCYTES # (AUTO) 0.7 X 10^3 (1.0-4.0); LYMPHOCYTES % (AUTO) 17 % (12-44); MEAN CORPUSCULAR HEMOGLOBIN 31 PG (25-34); MEAN CORPUSCULAR HGB CONC 34 G/DL (32-36); MEAN CORPUSCULAR VOLUME 93 FL (80-99); MEAN PLATELET VOLUME 11.7 FL (7.4-10.4); MONOCYTES # (AUTO) 0.4 X 10^3 (0.0-1.0); MONOCYTES % (AUTO) 10 % (0-12); NEUTROPHILS % (AUTO) 71 % (42-75); PLATELET COUNT 57 10^3/uL (130-400); RED CELL DISTRIBUTION WIDTH 14.2 % (10.0-14.5); WHITE BLOOD COUNT 4.3 10^3/uL (4.3-11.0)
[~2019-11-08 13:18] MED LIST changes: +ACETAMINOPHEN 500 MG TAB (TYLENOL) CANCER CTR PO PRN; +ACHD5005 PO; +ADAL40SY SQ; +IVIG 20 GM (PRIVIGEN) CANCER C 200 ML IV SCH; -MONT10TA24 PO; +MONT10TA26 PO; +[UNRECOGNIZED DRUG - OTHER]; +diphenhydrAMINE 25 MG TAB (BENADRYL) CANCER CENTER PO SCH
[2019-11-08 13:34] LABS: ALANINE AMINOTRANSFERASE 27 U/L (0-55); ALKALINE PHOSPHATASE 110 U/L (40-136); BILIRUBIN,TOTAL 0.5 MG/DL (0.1-1.0); BUN/CREATININE RATIO 10; CALCIUM 8.5 MG/DL (8.5-10.1); CARBON DIOXIDE 20 MMOL/L (21-32); CHLORIDE 112 MMOL/L (98-107); CREATININE SERUM 0.78 MG/DL (0.60-1.30); GFR ESTIMATED > 60; GLUCOSE 101 MG/DL (70-105); POTASSIUM 3.7 MMOL/L (3.6-5.0); SODIUM 140 MMOL/L (135-145); TOTAL PROTEIN 6.2 GM/DL (6.4-8.2)
== END 2019-11-14 | disposition home or self-care (01) ==
LOC: ONC 13:18
PROVIDERS: ATTEND Internal Medicine Hematology & Oncology
DX: Z45.2 Encounter for adjustment and management of vascular access device (principal); D69.6 Thrombocytopenia, unspecified; K75.4 Autoimmune hepatitis; K50.90 Crohn's disease, unspecified, without complications; G47.33 Obstructive sleep apnea (adult) (pediatric); E66.01 Morbid (severe) obesity due to excess calories; D83.9 Common variable immunodeficiency, unspecified; Z87.01 Personal history of pneumonia (recurrent); Z79.899 Other long term (current) drug therapy; Z68.41 Body mass index [BMI] 40.0-44.9, adult
CPT/HCPCS: 36591; 80053; 85025; 96365; 96366

== ENCOUNTER 2020-02-26 12:46 | Outpatient (RCR) | payer BC ==
[2020-01-31 13:44] LABS: BASOPHILS % (AUTO) 0 % (0-10); EOSINOPHILS # (AUTO) 0.1 10^3/uL (0.0-0.3); EOSINOPHILS % (AUTO) 2 % (0-10); HEMATOCRIT 36 % (35-52); HEMOGLOBIN 11.9 G/DL (11.5-16.0); LYMPHOCYTES # (AUTO) 0.6 X 10^3 (1.0-4.0); LYMPHOCYTES % (AUTO) 13 % (12-44); MEAN CORPUSCULAR HEMOGLOBIN 31 PG (25-34); MEAN CORPUSCULAR HGB CONC 33 G/DL (32-36); MEAN CORPUSCULAR VOLUME 93 FL (80-99); MEAN PLATELET VOLUME 12.6 FL (7.4-10.4); MONOCYTES # (AUTO) 0.5 X 10^3 (0.0-1.0); MONOCYTES % (AUTO) 10 % (0-12); NEUTROPHILS # (AUTO) 3.6 X 10^3 (1.8-7.8); NEUTROPHILS % (AUTO) 76 % (42-75); PLATELET COUNT 56 10^3/uL (130-400); RED CELL DISTRIBUTION WIDTH 14.1 % (10.0-14.5); WHITE BLOOD COUNT 4.8 10^3/uL (4.3-11.0)
[2020-01-31 14:07] LABS: ALANINE AMINOTRANSFERASE 22 U/L (0-55); ALBUMIN 4.1 GM/DL (3.2-4.5); ALKALINE PHOSPHATASE 89 U/L (40-136); BILIRUBIN,TOTAL 0.6 MG/DL (0.1-1.0); BUN/CREATININE RATIO 12; CALCIUM 8.9 MG/DL (8.5-10.1); CARBON DIOXIDE 25 MMOL/L (21-32); CHLORIDE 111 MMOL/L (98-107); CREATININE SERUM 0.76 MG/DL (0.60-1.30); GFR ESTIMATED > 60; GLUCOSE 96 MG/DL (70-105); POTASSIUM 3.6 MMOL/L (3.6-5.0); SODIUM 140 MMOL/L (135-145); TOTAL PROTEIN 6.5 GM/DL (6.4-8.2)
== END 2020-03-05 | disposition home or self-care (01) ==
LOC: ONC 12:46
PROVIDERS: ATTEND Internal Medicine Hematology & Oncology
DX: Z45.2 Encounter for adjustment and management of vascular access device (principal); D69.6 Thrombocytopenia, unspecified; K75.4 Autoimmune hepatitis; K50.90 Crohn's disease, unspecified, without complications; G47.33 Obstructive sleep apnea (adult) (pediatric); E66.01 Morbid (severe) obesity due to excess calories; D83.9 Common variable immunodeficiency, unspecified; M19.90 Unspecified osteoarthritis, unspecified site; J32.8 Other chronic sinusitis; Z87.01 Personal history of pneumonia (recurrent); Z79.899 Other long term (current) drug therapy; Z68.41 Body mass index [BMI] 40.0-44.9, adult
CPT/HCPCS: 36591; 80053; 85025; 96365; 96366

== ENCOUNTER 2020-06-19 12:55 | Outpatient (RCR) | payer BC ==
[2020-05-22 14:32] LABS: BASOPHILS % (AUTO) 0 % (0-10); EOSINOPHILS # (AUTO) 0.2 10^3/uL (0.0-0.3); EOSINOPHILS % (AUTO) 5 % (0-10); HEMATOCRIT 35 % (35-52); HEMOGLOBIN 11.6 g/dL (11.5-16.0); LYMPHOCYTES # (AUTO) 0.5 10^3/uL (1.0-4.0); LYMPHOCYTES % (AUTO) 16 % (12-44); MEAN CORPUSCULAR HEMOGLOBIN 31 pg (25-34); MEAN CORPUSCULAR HGB CONC 33 g/dL (32-36); MEAN CORPUSCULAR VOLUME 93 fL (80-99); MEAN PLATELET VOLUME 11.9 fL (9.0-12.2); MONOCYTES # (AUTO) 0.4 10^3/uL (0.0-1.0); MONOCYTES % (AUTO) 12 % (0-12); NEUTROPHILS # (AUTO) 2.1 10^3/uL (1.8-7.8); NEUTROPHILS % (AUTO) 67 % (42-75); PLATELET COUNT 42 10^3/uL (130-400); WHITE BLOOD COUNT 3.2 10^3/uL (4.3-11.0)
[2020-05-22 14:48] LABS: ALANINE AMINOTRANSFERASE 25 U/L (0-55); ALBUMIN 3.7 GM/DL (3.2-4.5); ALKALINE PHOSPHATASE 87 U/L (40-136); BILIRUBIN,TOTAL 0.6 MG/DL (0.1-1.0); BUN/CREATININE RATIO 9; CALCIUM 8.2 MG/DL (8.5-10.1); CARBON DIOXIDE 22 MMOL/L (21-32); CHLORIDE 110 MMOL/L (98-107); CREATININE SERUM 0.75 MG/DL (0.60-1.30); GFR ESTIMATED > 60; GLUCOSE 108 MG/DL (70-105); POTASSIUM 3.3 MMOL/L (3.6-5.0); SODIUM 142 MMOL/L (135-145); TOTAL PROTEIN 5.5 GM/DL (6.4-8.2)
[~2020-06-19 12:55] MED LIST changes: +ALTEPLASE 2 MG (CATHFLO) CANCER CENTER IV ONE
== END 2020-06-25 | disposition home or self-care (01) ==
LOC: ONC 12:55
PROVIDERS: ATTEND Internal Medicine Hematology & Oncology
DX: Z51.11 Encounter for antineoplastic chemotherapy (principal); D69.59 Other secondary thrombocytopenia; K75.4 Autoimmune hepatitis; K50.90 Crohn's disease, unspecified, without complications; G47.33 Obstructive sleep apnea (adult) (pediatric); E66.01 Morbid (severe) obesity due to excess calories; D83.9 Common variable immunodeficiency, unspecified; M19.90 Unspecified osteoarthritis, unspecified site; J32.8 Other chronic sinusitis; R79.89 Other specified abnormal findings of blood chemistry; J45.909 Unspecified asthma, uncomplicated; J18.9 Pneumonia, unspecified organism; F32.9 Major depressive disorder, single episode, unspecified; Z90.49 Acquired absence of other specified parts of digestive tract; Z98.890 Other specified postprocedural states; Z87.01 Personal history of pneumonia (recurrent); Z79.899 Other long term (current) drug therapy; Z68.41 Body mass index [BMI] 40.0-44.9, adult
CPT/HCPCS: 96365; 96366; G0463; 36591; 36593; 80053; 85025

== ENCOUNTER → 2020-07-17 | Outpatient (CLI) | payer BC ==
[~2020-07-17] MED LIST changes: -ACETAMINOPHEN 500 MG TAB (TYLENOL) CANCER CTR PO PRN; -ALTEPLASE 2 MG (CATHFLO) CANCER CENTER IV ONE; +IOHEXOL 240 MGI/ML 50 ML (OMNIPAQUE) VIAL IV ONE; -IVIG 20 GM (PRIVIGEN) CANCER C 200 ML IV SCH; -MONT10TA26 PO; +MONT10TA97 PO; -diphenhydrAMINE 25 MG TAB (BENADRYL) CANCER CENTER PO SCH
--- NOTE | 2020-07-17 12:29 | Diagnostic Imaging Report ---
Fluoroscopy for port injection Indication: Check port patency The sharepoint manager film reveals that there is a Port-A-Cath in place on the right. The tip of the catheter overlies the internal jugular vein. This represents a change from the previous chest exam of 08/02/2019 when the tip of the catheter overlies the proximal superior vena cava. With the patient in the supine position, Contrast was injected into the port. The port is patent. The patient was then moved to the erect position and the port was again injected. The port remains patent. Impression: 1. The right-sided Port-A-Cath is patent. However the tip of the line overlies the right internal jugular vein. 2. These results were called to in Dr. Amaya's office. Dictated by: Dictated on workstation # [id number]
== END ==
LOC: RAD 10:46
PROVIDERS: ATTEND Internal Medicine Hematology & Oncology
DX: D83.9 Common variable immunodeficiency, unspecified (principal); Z95.828 Presence of other vascular implants and grafts
CPT/HCPCS: 36598

== ENCOUNTER 2020-08-14 12:56 | Outpatient (RCR) | payer BC ==
[~2020-08-14 12:56] MED LIST changes: +ACETAMINOPHEN 500 MG TAB (TYLENOL) CANCER CTR PO PRN; -IOHEXOL 240 MGI/ML 50 ML (OMNIPAQUE) VIAL IV ONE; +IVIG 20 GM (PRIVIGEN) CANCER C 200 ML IV SCH; +diphenhydrAMINE 25 MG TAB (BENADRYL) CANCER CENTER PO SCH
== END 2020-09-05 12:38 | disposition home or self-care (01) ==
LOC: ONC 12:56
PROVIDERS: ATTEND Internal Medicine Hematology & Oncology
DX: Z51.11 Encounter for antineoplastic chemotherapy (principal); D69.59 Other secondary thrombocytopenia; K75.4 Autoimmune hepatitis; K50.90 Crohn's disease, unspecified, without complications; G47.33 Obstructive sleep apnea (adult) (pediatric); E66.01 Morbid (severe) obesity due to excess calories; D83.9 Common variable immunodeficiency, unspecified; M19.90 Unspecified osteoarthritis, unspecified site; J32.8 Other chronic sinusitis; R79.89 Other specified abnormal findings of blood chemistry; J45.909 Unspecified asthma, uncomplicated; J18.9 Pneumonia, unspecified organism; F32.9 Major depressive disorder, single episode, unspecified; Z90.49 Acquired absence of other specified parts of digestive tract; Z98.890 Other specified postprocedural states; Z79.899 Other long term (current) drug therapy; Z68.41 Body mass index [BMI] 40.0-44.9, adult
CPT/HCPCS: 96365; 96366

== ENCOUNTER 2020-12-04 13:23 | Outpatient (RCR) | payer BC ==
[2020-09-11 13:32] LABS: BASOPHILS % (AUTO) 0 % (0-10); EOSINOPHILS # (AUTO) 0.3 10^3/uL (0.0-0.3); EOSINOPHILS % (AUTO) 4 % (0-10); HEMATOCRIT 38 % (35-52); HEMOGLOBIN 13.1 g/dL (11.5-16.0); LYMPHOCYTES # (AUTO) 0.7 10^3/uL (1.0-4.0); LYMPHOCYTES % (AUTO) 10 % (12-44); MEAN CORPUSCULAR HEMOGLOBIN 33 pg (25-34); MEAN CORPUSCULAR HGB CONC 34 g/dL (32-36); MEAN CORPUSCULAR VOLUME 96 fL (80-99); MEAN PLATELET VOLUME 12.8 fL (9.0-12.2); MONOCYTES # (AUTO) 0.6 10^3/uL (0.0-1.0); MONOCYTES % (AUTO) 10 % (0-12); NEUTROPHILS % (AUTO) 76 % (42-75); PLATELET COUNT 67 10^3/uL (130-400); WHITE BLOOD COUNT 6.6 10^3/uL (4.3-11.0)
[2020-09-11 13:55] LABS: ALANINE AMINOTRANSFERASE 15 U/L (0-55); ALBUMIN 4.2 GM/DL (3.2-4.5); ALKALINE PHOSPHATASE 99 U/L (40-136); BILIRUBIN,TOTAL 0.7 MG/DL (0.1-1.0); BUN/CREATININE RATIO 11; CALCIUM 9.2 MG/DL (8.5-10.1); CARBON DIOXIDE 22 MMOL/L (21-32); CHLORIDE 109 MMOL/L (98-107); CREATININE SERUM 0.83 MG/DL (0.60-1.30); GFR ESTIMATED > 60; GLUCOSE 91 MG/DL (70-105); SODIUM 139 MMOL/L (135-145); TOTAL PROTEIN 6.9 GM/DL (6.4-8.2)
[~2020-12-04 13:23] MED LIST changes: +MONT10TA32 PO; -MONT10TA97 PO
== END 2020-12-10 | disposition home or self-care (01) ==
LOC: ONC 13:23
PROVIDERS: ATTEND Internal Medicine Hematology & Oncology
DX: Z51.11 Encounter for antineoplastic chemotherapy (principal); D69.6 Thrombocytopenia, unspecified; K75.4 Autoimmune hepatitis; K50.90 Crohn's disease, unspecified, without complications; G47.33 Obstructive sleep apnea (adult) (pediatric); E66.01 Morbid (severe) obesity due to excess calories; D83.9 Common variable immunodeficiency, unspecified; M19.90 Unspecified osteoarthritis, unspecified site; J32.8 Other chronic sinusitis; J45.909 Unspecified asthma, uncomplicated; J18.9 Pneumonia, unspecified organism; F32.9 Major depressive disorder, single episode, unspecified; R94.5 Abnormal results of liver function studies; Z90.49 Acquired absence of other specified parts of digestive tract; Z98.890 Other specified postprocedural states; Z79.899 Other long term (current) drug therapy; Z68.41 Body mass index [BMI] 40.0-44.9, adult
CPT/HCPCS: 80053; 85025; 96365; 96366; G0463

== ENCOUNTER 2021-03-26 12:46 | Outpatient (RCR) | payer BC ==
[2021-02-26 13:19] LABS: BASOPHILS % (AUTO) 0 % (0-10); EOSINOPHILS # (AUTO) 0.2 10^3/uL (0.0-0.3); EOSINOPHILS % (AUTO) 4 % (0-10); HEMATOCRIT 39 % (35-52); HEMOGLOBIN 13.3 g/dL (11.5-16.0); LYMPHOCYTES # (AUTO) 0.6 10^3/uL (1.0-4.0); LYMPHOCYTES % (AUTO) 13 % (12-44); MEAN CORPUSCULAR HEMOGLOBIN 33 pg (25-34); MEAN CORPUSCULAR HGB CONC 34 g/dL (32-36); MEAN CORPUSCULAR VOLUME 98 fL (80-99); MEAN PLATELET VOLUME 12.3 fL (9.0-12.2); MONOCYTES # (AUTO) 0.5 10^3/uL (0.0-1.0); MONOCYTES % (AUTO) 10 % (0-12); NEUTROPHILS # (AUTO) 3.6 10^3/uL (1.8-7.8); NEUTROPHILS % (AUTO) 73 % (42-75); PLATELET COUNT 69 10^3/uL (130-400); WHITE BLOOD COUNT 4.9 10^3/uL (4.3-11.0)
[2021-02-26 13:40] LABS: ALANINE AMINOTRANSFERASE 19 U/L (0-55); ALKALINE PHOSPHATASE 104 U/L (40-136); BILIRUBIN,TOTAL 0.7 MG/DL (0.1-1.0); BUN/CREATININE RATIO 7; CALCIUM 8.8 MG/DL (8.5-10.1); CARBON DIOXIDE 26 MMOL/L (21-32); CHLORIDE 110 MMOL/L (98-107); CREATININE SERUM 0.87 MG/DL (0.60-1.30); GFR ESTIMATED > 60; GLUCOSE 85 MG/DL (70-105); POTASSIUM 3.7 MMOL/L (3.6-5.0); SODIUM 141 MMOL/L (135-145); TOTAL PROTEIN 6.6 GM/DL (6.4-8.2)
== END 2021-04-01 | disposition home or self-care (01) ==
LOC: ONC 12:46
PROVIDERS: ATTEND Internal Medicine Hematology & Oncology
DX: Z51.12 Encounter for antineoplastic immunotherapy (principal); D80.1 Nonfamilial hypogammaglobulinemia; D69.6 Thrombocytopenia, unspecified; K75.4 Autoimmune hepatitis; K50.90 Crohn's disease, unspecified, without complications; G47.33 Obstructive sleep apnea (adult) (pediatric); E66.01 Morbid (severe) obesity due to excess calories; D83.9 Common variable immunodeficiency, unspecified; M19.90 Unspecified osteoarthritis, unspecified site; J32.9 Chronic sinusitis, unspecified; J45.909 Unspecified asthma, uncomplicated; F32.9 Major depressive disorder, single episode, unspecified; R94.5 Abnormal results of liver function studies; Z90.49 Acquired absence of other specified parts of digestive tract; Z98.890 Other specified postprocedural states; Z79.899 Other long term (current) drug therapy; Z68.41 Body mass index [BMI] 40.0-44.9, adult
CPT/HCPCS: 80053; 85025; 96365; 96366

== ENCOUNTER → 2021-05-15 | Outpatient (CLI) | payer BC ==
[~2021-05-15] MED LIST changes: -ACETAMINOPHEN 500 MG TAB (TYLENOL) CANCER CTR PO PRN; -IVIG 20 GM (PRIVIGEN) CANCER C 200 ML IV SCH; -diphenhydrAMINE 25 MG TAB (BENADRYL) CANCER CENTER PO SCH
[2021-05-15 08:28] LABS: BASOPHILS % (AUTO) 0 % (0-10); LYMPHOCYTES # (AUTO) 0.4 10^3/uL (1.0-4.0)
[2021-05-15 08:30] LABS: EOSINOPHILS % (AUTO) 0 % (0-10); HEMATOCRIT 40 % (35-52); HEMOGLOBIN 13.5 g/dL (11.5-16.0); LYMPHOCYTES % (AUTO) 7 % (12-44); MEAN CORPUSCULAR HEMOGLOBIN 34 pg (25-34); MEAN CORPUSCULAR HGB CONC 34 g/dL (32-36); MEAN CORPUSCULAR VOLUME 101 fL (80-99); MEAN PLATELET VOLUME 12.6 fL (9.0-12.2); MONOCYTES # (AUTO) 0.3 10^3/uL (0.0-1.0); MONOCYTES % (AUTO) 6 % (0-12); NEUTROPHILS # (AUTO) 4.8 10^3/uL (1.8-7.8); NEUTROPHILS % (AUTO) 87 % (42-75); WHITE BLOOD COUNT 5.5 10^3/uL (4.3-11.0)
[2021-05-15 08:31] LABS: PLATELET COUNT 60 10^3/uL (130-400)
[2021-05-15 09:06] LABS: BAND NEUTROPHILS 0 %; BASOPHILS % (MANUAL) 0 %; EOSINOPHILS % (MANUAL) 0 %; LYMPHOCYTES % (MANUAL) 8 %; MONOCYTES % (MANUAL) 3 %; NEUTROPHILS % (MANUAL) 89 %; RBC MORPH NORMAL
--- NOTE | 2021-05-15 09:22 | Diagnostic Imaging Report ---
INDICATION: Persistent cough. History of asthma. TECHNIQUE: Two view chest 8:48 AM CORRELATION STUDY: 08/02/2019 FINDINGS: A right-sided Dukkxv-u-Asqa catheter is present. There has been change in position of the tip which is now directed superiorly into the neck are likely into the internal jugular vein. Heart size and mediastinum generally stable. This includes slight prominent appearance about the right azygos region. Prominent interstitial markings throughout both lung scott. No definitive consolidating infiltrate. There is a questionable linear, tubular shaped density over the right lung base just above the apex of the diaphragm. Visualized osseous structures are unremarkable. IMPRESSION: 1. Interval change in position of the right-sided Equegn-y-Jfwp catheter. Tip is now malpositioned, directed into the neck likely at the internal jugular vein. 2. Mildly prominent interstitial markings throughout both lung scott. No definitive consolidating infiltrate. 3. Slightly nodular prominent appearance but the right perimediastinal, azygos region. Adenopathy or mass is not excluded. 4. Question tubular shaped density just lateral to the apex of the diaphragm over the right lung base. May reflect overlapping summation shadows. Possibility of a catheter fragment would be difficult to exclude. 5. Given the multiplicity of findings, if further assessment desired, CT imaging chest would be recommended. Faxed to Loli Lopez APRN at 9:24 a.m. by cvb. Dictated by: Dictated on workstation # [id number]
== END ==
LOC: RAD 08:08
PROVIDERS: ATTEND Nurse Practitioner Family
DX: T82.42XA Displacement of vascular dialysis catheter, initial encounter (principal); R91.8 Other nonspecific abnormal finding of lung field; R05.9 Cough, unspecified
CPT/HCPCS: 36415; 71046; 85007; 85027; 86738

== ENCOUNTER → 2021-05-19 | Outpatient (CLI) | payer BC ==
[~2021-05-19] MED LIST changes: +RT-ALBUTEROL SULF 2.5 MG/3 ML PRE-MIX VIAL INH ONE
== END ==
LOC: RT 07:47
PROVIDERS: ATTEND Nurse Practitioner Family
DX: R05.9 Cough, unspecified (principal)
CPT/HCPCS: 94060; 94726; 94729

== ENCOUNTER 2021-06-04 10:21 | Day surgery (SDC) | payer BC ==
[~2021-06-04] VITALS: Ht 160 cm; Wt 124.7 kg
[~2021-06-04 10:21] MED LIST changes: +BUPR150T24 PO; +CHOL500050 PO; +CITA40TA19 PO; -RT-ALBUTEROL SULF 2.5 MG/3 ML PRE-MIX VIAL INH ONE; +SULF1TAB34 PO; +TIOT18CA2 IH
[2021-06-04] MEDS ORDERED: ceFAZolin 2 GM IV Premixed 50 ML IV ONE (10:45)
[2021-06-04] MEDS ORDERED: LACTATED RINGERS 1,000 ML IV PRN (10:45)
[2021-06-04 10:50] VITALS: BP 137/83
--- NOTE | 2021-06-04 11:31 | Progress Note-Pre Operative ---
Pre-Operative Progress Note H&P Reviewed The H&P was reviewed, patient examined and no changes noted. Date Seen by Provider: Jun 04, 2021 Time Seen by Provider: 11:25 Date H&P Reviewed: Jun 04, 2021 Time H&P Reviewed: 11:20 Pre-Operative Diagnosis: Crohns dx, poor peripheral access LATIA MILES APRN Jun 04, 2021 11:31
[2021-06-04] MEDS ORDERED: ACHD5005 PO (11:33)
--- NOTE | 2021-06-04 11:34 | Discharge Inst-Surgical ---
D/C Lap Instructions-KIDO Reconcile Patient Problems Problems Reviewed?: Yes New, Converted, or Re-Newed RX: RX on Chart Follow Up Appt as needed Activity as tolerated No driving for 24 hours No driving while on pain medications Incentive Spirometry use every 2 hours while awake Regular Diet Symptoms to Report: Fever over 101 degree F, Nausea/Vomiting Infection Signs and Symptoms to report: Increased redness, Foul odor of wound, Increased drainage Bathing instructions: May shower Operative Area Clean/Dry; Keep incision clean/dry If any problems/questions: Contact your physician or go to Emergency Room LATIA MILES APRN Jun 04, 2021 11:34
[2021-06-04] MEDS ORDERED: HYDROcodone/APAP 5 MG/325 MG (LORTAB) TAB PO ONE (11:45)
[2021-06-04] MEDS ORDERED: morphine INJ 10 MG/ML 1ML (SYR OR VIAL) IVP PRN (11:45)
[2021-06-04] MEDS ORDERED: ONDANSETRON 4 MG/2 ML (SDV) Z0FRAN IVP PRN ×2 (11:45→14:15)
[2021-06-04] MEDS ORDERED: ACETAMINOPHEN 325 MG TABLET PO PRN (11:45)
[2021-06-04] MEDS ORDERED: fentaNYL INJ 100 MCG/2 ML AMP ONE (12:07)
[2021-06-04] MEDS ORDERED: MIDAZOLAM 2 MG/2 ML (VERSED) VIAL ONE ×2 (12:07→13:32)
[2021-06-04] MEDS ORDERED: PROPOFOL INJECTION 50 ML IV ONE ×2 (12:07→14:16)
[2021-06-04] MEDS ORDERED: HEParin (CENTRAL IV FLUSH) 500 UNIT/5 ML SYR ONE (12:10)
[2021-06-04] MEDS ORDERED: LIDOCAINE/EPI 1%-1:100,000 (XYLOCAINE) 20ML ONE (12:10)
[2021-06-04] MEDS ORDERED: 0.9% SODIUM CHLORIDE PF INJ 20 ML VIAL ONE (12:10)
[2021-06-04] MEDS ORDERED: KETAMINE SYRINGE 50 MG/5 ML SYRINGE ONE (13:21)
[2021-06-04 14:02] VITALS: BP 158/99
[2021-06-04 14:10] VITALS: BP 139/85
--- NOTE | 2021-06-04 14:15 | Anesthesia-General Post-Op ---
MAC Patient Condition Mental Status/LOC: Same as Preop Cardiovascular: Satisfactory Nausea/Vomiting: Absent Respiratory: Satisfactory Pain: Controlled Complications: Absent Post Op Complications Complications None Follow Up Care/Instructions Patient Instructions None needed. Anesthesiology Discharge Order Discharge Order Patient is doing well, no complaints, stable vital signs, no apparent adverse anesthesia problems. GLENIS GILL DO Jun 04, 2021 14:15
[2021-06-04 14:20] VITALS: BP 127/77
[2021-06-04 14:30] VITALS: BP_SYST 127; BP_SYST 133; BP_DIAS 74; BP_DIAS 88
--- NOTE | 2021-06-04 14:41 | Diagnostic Imaging Report ---
INDICATION: Fluoroscopy for port placement. FINDINGS: Fluoroscopy was provided in the OR during port placement. 69 seconds of fluoroscopic time was utilized. A single image was obtained. There is a right-sided port. Tip appears to overlie the SVC, however, a postprocedure chest radiograph would be recommended for better clarity. IMPRESSION: Fluoroscopy during port placement. Dictated by: Dictated on workstation # [id number]
--- NOTE | 2021-06-04 14:43 | Diagnostic Imaging Report ---
EXAMINATION: Chest, one view. HISTORY: Preoperative evaluation. COMPARISON: 08/02/2019. FINDINGS: Heart size and pulmonary vasculature are stable. Right-sided port catheter is unchanged. There are increased interstitial opacities in the lung bases. Low lung volumes. No pneumothorax. The osseous structures are intact. IMPRESSION: 1. Patchy interstitial opacities in the lung bases which could represent atelectasis, atypical infection, or pulmonary edema. Dictated by: Dictated on workstation # [id number]
[2021-06-04 15:00] VITALS: BP 147/82
--- NOTE | 2021-06-04 15:04 | Progress Note-Post Operative ---
Post-Operative Progess Note Surgeon (s)/Help Desk Support Specialist (s) Surgeon HALLIE KINSEY MD Help Desk Support Specialist: stacey archer IMPLEMENTATION PROJECT MANAGER Pre-Operative Diagnosis Crohns dx, poor peripheral access Post-Operative Diagnosis same Procedure & Operative Findings Date of Procedure 06/04/21 Procedure Performed/Findings removal groshong. placement right subclavian groshong implantable cath under flouroscopy Anesthesia Type get Estimated Blood Loss Estimated blood loss (mL): minimal Specimens/Packing Specimens Removed none HALLIE KINSEY MD Jun 04, 2021 15:04
--- NOTE | 2021-06-04 18:24 | OPERATIVE REPORT ---
DATE OF SERVICE: 06/04/2021 ATTENDING PRIMARY CARE PHYSICIAN: Dr. Kamini Starr. PREOPERATIVE DIAGNOSIS: History of Crohn's disease with poor peripheral venous circulation. POSTOPERATIVE DIAGNOSIS: History of Crohn's disease with poor peripheral venous circulation. PROCEDURE: Removal of right subclavian Groshong implantable catheter, replacement right subclavian Groshong implantable catheter under fluoroscopy. SURGEON: Cherelle Kinsey MD INTERNAL AUDIT MANAGER: Tereso Goldberg APRN ANESTHESIA: Monitored anesthesia care with local. ESTIMATED BLOOD LOSS: Minimal. FINDINGS: Same as postoperative diagnoses. DISPOSITION: The patient tolerated the procedure well. INDICATIONS: The patient is a 40-year-old female known to us. She has a history of Crohn's disease and has had 2 previous surgeries for this. She is on monthly IVIG infusions. She does have poor peripheral venous circulation. She has had multiple central IV accesses in the past; however, would eventually clot off. The last one was placed by us 07/2019. She reports that this became nonfunctional and a chest x-ray was performed, which showed that the catheter had migrated cephalad. DESCRIPTION OF PROCEDURE: The patient was brought to the operating room, laid supine on the table. After adequate IV pain and sedative medications and monitored anesthesia care, the chest and neck were prepped and draped in standard surgical fashion. A 0.5% Marcaine with epinephrine was then used to anesthetize overlying the skin along the previous right subclavian incision. The subcutaneous tissue was then dissected down using electrocautery. The capsule of the port was identified and opened using electrocautery. The port as well as the catheter were then removed en bloc while holding pressure with visualization of good hemostasis. The left subclavian vein was then cannulated with drawing of venous blood. The guidewire was then inserted without any resistance under fluoroscopy. The cannulating needle was removed and the dilator and sheath were then placed over the guidewire. Guidewire and dilator were then removed and the Groshong catheter was placed through the sheath until the catheter tip was at the superior vena cava--right atrial junction and the sheath removed. The port was then placed into the previous reservoir and sutured to the anterior pectoralis fascia using interrupted 3-0 Vicryl sutures. The subcutaneous tissue was then reapproximated using 3-0 Vicryl interrupted suture. Skin was closed using 4-0 Monocryl running subcuticular suture. Wound was then cleaned and covered with Dermabond. The patient tolerated the procedure well. We will get a post-procedure chest x-ray once confirmation of placement, port may be accessed and used any time. Job ID: [id number] DocumentID: [id number] Dictated Date: 06/04/2021 13:54:16 Undergraduate Internship Date: 06/04/2021 18:24:02 Dictated By: CHERELLE KINSEY MD MTDD
== END 2021-06-04 15:25 | disposition home or self-care (01) ==
LOC: SDC 10:21
PROVIDERS: ATTEND Surgery
DX: T82.598A Other mechanical complication of other cardiac and vascular devices and implants, initial encounter (principal); K50.90 Crohn's disease, unspecified, without complications; I87.2 Venous insufficiency (chronic) (peripheral); D83.9 Common variable immunodeficiency, unspecified; J45.909 Unspecified asthma, uncomplicated; F32.A Depression, unspecified; G47.33 Obstructive sleep apnea (adult) (pediatric); F41.9 Anxiety disorder, unspecified; K21.9 Gastro-esophageal reflux disease without esophagitis; E66.01 Morbid (severe) obesity due to excess calories; Z68.42 Body mass index [BMI] 45.0-49.9, adult; Z99.89 Dependence on other enabling machines and devices; Z79.899 Other long term (current) drug therapy; Z88.8 Allergy status to other drugs, medicaments and biological substances
CPT/HCPCS: 36582; 71045; 76000; 84703; 87081; C1788

== ENCOUNTER 2021-07-16 13:29 | Outpatient (RCR) | payer BC ==
[2021-05-21 09:19] LABS: HEMOGLOBIN 13.6 g/dL (11.5-16.0); LYMPHOCYTES % (AUTO) 10 % (12-44); MEAN CORPUSCULAR VOLUME 102 fL (80-99)
[2021-05-21 09:21] LABS: BASOPHILS % (AUTO) 0 % (0-10); EOSINOPHILS # (AUTO) 0.2 10^3/uL (0.0-0.3); EOSINOPHILS % (AUTO) 3 % (0-10); HEMATOCRIT 41 % (35-52); LYMPHOCYTES # (AUTO) 0.6 10^3/uL (1.0-4.0); MEAN CORPUSCULAR HEMOGLOBIN 34 pg (25-34); MEAN CORPUSCULAR HGB CONC 34 g/dL (32-36); MEAN PLATELET VOLUME 13.7 fL (9.0-12.2); MONOCYTES # (AUTO) 0.5 10^3/uL (0.0-1.0); MONOCYTES % (AUTO) 9 % (0-12); NEUTROPHILS # (AUTO) 4.4 10^3/uL (1.8-7.8); NEUTROPHILS % (AUTO) 77 % (42-75); PLATELET COUNT 55 10^3/uL (130-400); WHITE BLOOD COUNT 5.8 10^3/uL (4.3-11.0)
[2021-05-21 09:36] LABS: ALBUMIN 3.8 GM/DL (3.2-4.5); BILIRUBIN,TOTAL 0.9 MG/DL (0.1-1.0); CALCIUM 9.5 MG/DL (8.5-10.1); CREATININE SERUM 0.84 MG/DL (0.60-1.30); TOTAL PROTEIN 6.6 GM/DL (6.4-8.2)
[2021-05-21 09:38] LABS: POTASSIUM 5.2 MMOL/L (3.6-5.0)
[~2021-07-16 13:29] MED LIST changes: +ACETAMINOPHEN 500 MG TAB (TYLENOL) CANCER CTR PO PRN; +IVIG 20 GM (PRIVIGEN) CANCER C 200 ML IV SCH; +MONT-40 PO; -MONT10TA32 PO; +diphenhydrAMINE 25 MG TAB (BENADRYL) CANCER CENTER PO SCH
== END 2021-07-26 | disposition home or self-care (01) ==
LOC: ONC 13:29
PROVIDERS: ATTEND Internal Medicine Hematology & Oncology
DX: Z51.11 Encounter for antineoplastic chemotherapy (principal); D69.6 Thrombocytopenia, unspecified; K75.4 Autoimmune hepatitis; K50.90 Crohn's disease, unspecified, without complications; G47.33 Obstructive sleep apnea (adult) (pediatric); E66.01 Morbid (severe) obesity due to excess calories; D83.9 Common variable immunodeficiency, unspecified; M19.90 Unspecified osteoarthritis, unspecified site; J32.9 Chronic sinusitis, unspecified; J45.909 Unspecified asthma, uncomplicated; J18.9 Pneumonia, unspecified organism; F32.9 Major depressive disorder, single episode, unspecified; R94.5 Abnormal results of liver function studies; Z90.49 Acquired absence of other specified parts of digestive tract; Z98.890 Other specified postprocedural states; Z79.899 Other long term (current) drug therapy; Z68.41 Body mass index [BMI] 40.0-44.9, adult
CPT/HCPCS: 36415; 80053; 85025; 96365; 96366

== ENCOUNTER 2021-08-13 12:58 | Outpatient (RCR) | payer BC ==
[2021-08-13 13:34] LABS: BASOPHILS % (AUTO) 0 % (0-10); EOSINOPHILS # (AUTO) 0.1 10^3/uL (0.0-0.3); EOSINOPHILS % (AUTO) 3 % (0-10); HEMATOCRIT 39 % (35-52); HEMOGLOBIN 13.5 g/dL (11.5-16.0); LYMPHOCYTES # (AUTO) 0.8 10^3/uL (1.0-4.0); LYMPHOCYTES % (AUTO) 15 % (12-44); MEAN CORPUSCULAR HEMOGLOBIN 35 pg (25-34); MEAN CORPUSCULAR HGB CONC 34 g/dL (32-36); MEAN CORPUSCULAR VOLUME 102 fL (80-99); MEAN PLATELET VOLUME 12.4 fL (9.0-12.2); MONOCYTES # (AUTO) 0.6 10^3/uL (0.0-1.0); MONOCYTES % (AUTO) 11 % (0-12); NEUTROPHILS # (AUTO) 3.7 10^3/uL (1.8-7.8); NEUTROPHILS % (AUTO) 71 % (42-75); PLATELET COUNT 52 10^3/uL (130-400); WHITE BLOOD COUNT 5.3 10^3/uL (4.3-11.0)
[2021-08-13 14:04] LABS: ALBUMIN 3.9 GM/DL (3.2-4.5); BILIRUBIN,TOTAL 0.7 MG/DL (0.1-1.0); CREATININE SERUM 0.91 MG/DL (0.60-1.30); POTASSIUM 4.3 MMOL/L (3.6-5.0); TOTAL PROTEIN 6.5 GM/DL (6.4-8.2)
== END 2021-08-14 ==
LOC: ONC 12:58
PROVIDERS: ATTEND Internal Medicine Hematology & Oncology
DX: Z51.11 Encounter for antineoplastic chemotherapy (principal); D69.6 Thrombocytopenia, unspecified; K75.4 Autoimmune hepatitis; K50.90 Crohn's disease, unspecified, without complications; G47.33 Obstructive sleep apnea (adult) (pediatric); E66.01 Morbid (severe) obesity due to excess calories; D83.9 Common variable immunodeficiency, unspecified; D80.1 Nonfamilial hypogammaglobulinemia; M19.90 Unspecified osteoarthritis, unspecified site; J32.9 Chronic sinusitis, unspecified; J45.909 Unspecified asthma, uncomplicated; J18.9 Pneumonia, unspecified organism; F32.9 Major depressive disorder, single episode, unspecified; R94.5 Abnormal results of liver function studies; Z90.49 Acquired absence of other specified parts of digestive tract; Z98.890 Other specified postprocedural states; Z79.899 Other long term (current) drug therapy; Z68.41 Body mass index [BMI] 40.0-44.9, adult
CPT/HCPCS: 80053; 82784 ×3; 85025; 96365; 96366; G0463; 99213

== ENCOUNTER 2021-09-10 12:55 | Outpatient (RCR) | payer BC ==
[2021-09-10] MEDS ORDERED: IVIG 10 GM (PRIVIGEN) CANCER C 100 ML IV SCH (13:15)
[2021-09-10] MEDS ORDERED: NS IV 500 ML (CANCER CENTER) 500 ML ONE (15:30)
[2021-09-10] MEDS ORDERED: diphenhydrAMINE 50 MG/ML INJ (CANCER CENTER) ONE (15:33)
[2021-09-10] MEDS ORDERED: NS IV ONE (15:36)
[2021-09-10] MEDS ORDERED: DEXAMETHASONE SODIUM PHOSPHATE IV ONE (15:36)
== END 2021-09-14 | disposition home or self-care (01) ==
LOC: ONC 12:55
PROVIDERS: ATTEND Internal Medicine Hematology & Oncology
DX: Z51.11 Encounter for antineoplastic chemotherapy (principal); Z45.2 Encounter for adjustment and management of vascular access device; T78.40XA Allergy, unspecified, initial encounter; K50.90 Crohn's disease, unspecified, without complications; G47.33 Obstructive sleep apnea (adult) (pediatric); E66.01 Morbid (severe) obesity due to excess calories; J45.909 Unspecified asthma, uncomplicated; Z68.41 Body mass index [BMI] 40.0-44.9, adult
CPT/HCPCS: 96360; 96365; 96366; 96375

== ENCOUNTER 2021-10-08 09:18 | Outpatient (RCR) | payer BC ==
[~2021-10-08] VITALS: Ht 160 cm; Wt 122.5 kg
[~2021-10-08 09:18] MED LIST changes: +IVIG 10 GM (PRIVIGEN) CANCER C 100 ML IV SCH
[2021-10-08 10:41] LABS: BASOPHILS % (AUTO) 0 % (0-10); HEMOGLOBIN 12.7 g/dL (11.5-16.0)
[2021-10-08 10:43] LABS: EOSINOPHILS # (AUTO) 0.1 10^3/uL (0.0-0.3); EOSINOPHILS % (AUTO) 3 % (0-10); HEMATOCRIT 38 % (35-52); LYMPHOCYTES # (AUTO) 0.5 10^3/uL (1.0-4.0); LYMPHOCYTES % (AUTO) 14 % (12-44); MEAN CORPUSCULAR HEMOGLOBIN 34 pg (25-34); MEAN CORPUSCULAR HGB CONC 33 g/dL (32-36); MEAN CORPUSCULAR VOLUME 103 fL (80-99); MEAN PLATELET VOLUME 13.1 fL (9.0-12.2); MONOCYTES # (AUTO) 0.4 10^3/uL (0.0-1.0); MONOCYTES % (AUTO) 11 % (0-12); NEUTROPHILS # (AUTO) 2.4 10^3/uL (1.8-7.8); NEUTROPHILS % (AUTO) 72 % (42-75); PLATELET COUNT 56 10^3/uL (130-400); WHITE BLOOD COUNT 3.4 10^3/uL (4.3-11.0)
[2021-10-08] MEDS ORDERED: ACETAMINOPHEN 325 MG TAB (TYLENOL) CANCER CTR PO PRN (10:45)
[2021-10-08] MEDS ORDERED: IVIG 10 GM (PRIVIGEN) CANCER C 100 ML IV SCH (10:45)
[2021-10-08] MEDS ORDERED: diphenhydrAMINE 50 MG/ML INJ (CANCER CENTER) IV PRN (10:45)
[2021-10-08 10:58] LABS: ALBUMIN 3.7 GM/DL (3.2-4.5); BILIRUBIN,TOTAL 0.8 MG/DL (0.1-1.0); CALCIUM 8.7 MG/DL (8.5-10.1); CREATININE SERUM 0.88 MG/DL (0.60-1.30); POTASSIUM 4.2 MMOL/L (3.6-5.0)
== END 2021-10-12 | disposition home or self-care (01) ==
LOC: ONC 09:18
PROVIDERS: ATTEND Internal Medicine Hematology & Oncology
DX: D80.1 Nonfamilial hypogammaglobulinemia (principal); T78.40XA Allergy, unspecified, initial encounter; K50.90 Crohn's disease, unspecified, without complications; D69.6 Thrombocytopenia, unspecified; G47.33 Obstructive sleep apnea (adult) (pediatric); E66.01 Morbid (severe) obesity due to excess calories; J45.909 Unspecified asthma, uncomplicated; Z68.41 Body mass index [BMI] 40.0-44.9, adult
CPT/HCPCS: 80053; 82784 ×3; 85025; 96365; 96366; 96375; G0463; 36415; 99213

== ENCOUNTER 2021-11-06 08:56 | Outpatient (RCR) | payer BC ==
[2021-11-02 09:20] LABS: HEMATOCRIT 38 % (35-52); MEAN CORPUSCULAR VOLUME 103 fL (80-99)
[2021-11-02 09:22] LABS: BASOPHILS % (AUTO) 1 % (0-10); EOSINOPHILS # (AUTO) 0.1 10^3/uL (0.0-0.3); EOSINOPHILS % (AUTO) 3 % (0-10); HEMOGLOBIN 12.7 g/dL (11.5-16.0); LYMPHOCYTES # (AUTO) 0.5 10^3/uL (1.0-4.0); LYMPHOCYTES % (AUTO) 11 % (12-44); MEAN CORPUSCULAR HEMOGLOBIN 35 pg (25-34); MEAN CORPUSCULAR HGB CONC 34 g/dL (32-36); MEAN PLATELET VOLUME 13.1 fL (9.0-12.2); MONOCYTES # (AUTO) 0.4 10^3/uL (0.0-1.0); MONOCYTES % (AUTO) 8 % (0-12); NEUTROPHILS # (AUTO) 3.3 10^3/uL (1.8-7.8); NEUTROPHILS % (AUTO) 77 % (42-75); PLATELET COUNT 63 10^3/uL (130-400); WHITE BLOOD COUNT 4.3 10^3/uL (4.3-11.0)
[2021-11-02 09:32] LABS: ALBUMIN 3.8 GM/DL (3.2-4.5); BILIRUBIN,TOTAL 0.8 MG/DL (0.1-1.0); CALCIUM 8.9 MG/DL (8.5-10.1); CREATININE SERUM 0.78 MG/DL (0.60-1.30); TOTAL PROTEIN 6.2 GM/DL (6.4-8.2)
[~2021-11-06 08:56] MED LIST changes: +ACETAMINOPHEN 325 MG TABLET PO PRN; -ACETAMINOPHEN 500 MG TAB (TYLENOL) CANCER CTR PO PRN; +diphenhydrAMINE 50 MG/ML INJ (CANCER CENTER) IV PRN
== END 2021-11-12 ==
LOC: ONC 08:56
PROVIDERS: ATTEND Internal Medicine Hematology & Oncology
DX: D80.1 Nonfamilial hypogammaglobulinemia (principal); T78.40XA Allergy, unspecified, initial encounter; K50.90 Crohn's disease, unspecified, without complications; D69.6 Thrombocytopenia, unspecified; G47.33 Obstructive sleep apnea (adult) (pediatric); E66.01 Morbid (severe) obesity due to excess calories; J45.909 Unspecified asthma, uncomplicated; Z68.41 Body mass index [BMI] 40.0-44.9, adult
CPT/HCPCS: 80053; 82784; 85025

== ENCOUNTER 2021-12-03 12:55 | Outpatient (RCR) | payer BC ==
[~2021-12-03 12:55] MED LIST changes: +HEParin (CENTRAL IV FLUSH) 500 UNIT/5 ML SYR IV PRN; +IVIG 10 GM (PRIVIGEN) 100 ML IV SCH; -IVIG 10 GM (PRIVIGEN) CANCER C 100 ML IV SCH; +IVIG 20 GM (PRIVIGEN) 200 ML IV SCH; -IVIG 20 GM (PRIVIGEN) CANCER C 200 ML IV SCH; -diphenhydrAMINE 25 MG TAB (BENADRYL) CANCER CENTER PO SCH; +diphenhydrAMINE 25 MG TAB (BENADRYL) PO SCH; +diphenhydrAMINE 50 MG/ML INJ (BENADRYL) IV PRN; -diphenhydrAMINE 50 MG/ML INJ (CANCER CENTER) IV PRN
== END 2021-12-12 ==
LOC: ONC 12:55
PROVIDERS: ATTEND Internal Medicine Hematology & Oncology
DX: Z51.11 Encounter for antineoplastic chemotherapy (principal); Z45.2 Encounter for adjustment and management of vascular access device; D80.1 Nonfamilial hypogammaglobulinemia; T78.40XA Allergy, unspecified, initial encounter; K50.90 Crohn's disease, unspecified, without complications; D69.6 Thrombocytopenia, unspecified; G47.33 Obstructive sleep apnea (adult) (pediatric); E66.01 Morbid (severe) obesity due to excess calories; J45.909 Unspecified asthma, uncomplicated; Z68.41 Body mass index [BMI] 40.0-44.9, adult
CPT/HCPCS: 36591; 96365; 96366; 96375

== ENCOUNTER 2021-12-31 09:44 | Outpatient (RCR) | payer BC ==
[2021-12-31 09:53] LABS: BASOPHILS % (AUTO) 0 % (0-10); MEAN CORPUSCULAR HEMOGLOBIN 35 pg (25-34); MEAN CORPUSCULAR HGB CONC 34 g/dL (32-36); MONOCYTES # (AUTO) 0.5 10^3/uL (0.0-1.0)
[2021-12-31 09:55] LABS: EOSINOPHILS % (AUTO) 1 % (0-10); HEMATOCRIT 38 % (35-52); LYMPHOCYTES # (AUTO) 0.4 10^3/uL (1.0-4.0); LYMPHOCYTES % (AUTO) 9 % (12-44); MEAN CORPUSCULAR VOLUME 102 fL (80-99); MEAN PLATELET VOLUME 11.7 fL (9.0-12.2); MONOCYTES % (AUTO) 11 % (0-12); NEUTROPHILS # (AUTO) 3.6 10^3/uL (1.8-7.8); NEUTROPHILS % (AUTO) 79 % (42-75); PLATELET COUNT 58 10^3/uL (130-400); WHITE BLOOD COUNT 4.6 10^3/uL (4.3-11.0)
[2021-12-31 10:18] LABS: ALBUMIN 3.9 GM/DL (3.2-4.5); BILIRUBIN,TOTAL 0.7 MG/DL (0.1-1.0); CALCIUM 9.2 MG/DL (8.5-10.1); CREATININE SERUM 0.8 MG/DL (0.60-1.30); POTASSIUM 3.4 MMOL/L (3.6-5.0); TOTAL PROTEIN 6.3 GM/DL (6.4-8.2)
== END 2022-01-12 | disposition home or self-care (01) ==
LOC: ONC 09:44
PROVIDERS: ATTEND Internal Medicine Hematology & Oncology
DX: D80.1 Nonfamilial hypogammaglobulinemia (principal); D69.6 Thrombocytopenia, unspecified; K50.90 Crohn's disease, unspecified, without complications; J45.909 Unspecified asthma, uncomplicated; J18.9 Pneumonia, unspecified organism; R94.5 Abnormal results of liver function studies
CPT/HCPCS: 80053; 82784 ×3; 85025; G0463

== ENCOUNTER 2022-01-27 09:00 | Outpatient (RCR) | payer BC | END 2022-02-11 | disposition home or self-care (01) | LOC: ONC 09:00 | PROVIDERS: ATTEND Internal Medicine Hematology & Oncology | DX: Z51.12 Encounter for antineoplastic immunotherapy (principal); Z45.2 Encounter for adjustment and management of vascular access device; D80.1 Nonfamilial hypogammaglobulinemia; D69.6 Thrombocytopenia, unspecified; K50.90 Crohn's disease, unspecified, without complications; J45.909 Unspecified asthma, uncomplicated; J18.9 Pneumonia, unspecified organism; R94.5 Abnormal results of liver function studies | CPT/HCPCS: 36591; 96365; 96366 ==

== ENCOUNTER 2022-02-25 08:57 | Outpatient (RCR) | payer BC ==
[~2022-02-25] VITALS: Ht 160 cm; Wt 129.7 kg
== END 2022-03-12 15:41 | disposition home or self-care (01) ==
LOC: ONC 08:57
PROVIDERS: ATTEND Internal Medicine Hematology & Oncology
DX: Z45.2 Encounter for adjustment and management of vascular access device (principal); D80.1 Nonfamilial hypogammaglobulinemia; D69.6 Thrombocytopenia, unspecified; K50.90 Crohn's disease, unspecified, without complications; J45.909 Unspecified asthma, uncomplicated; R94.5 Abnormal results of liver function studies
CPT/HCPCS: 96365; 96366; 96523

== ENCOUNTER → 2022-03-04 | Outpatient (CLI) | payer BC ==
[~2022-03-04] MED LIST changes: -ACETAMINOPHEN 325 MG TABLET PO PRN; -HEParin (CENTRAL IV FLUSH) 500 UNIT/5 ML SYR IV PRN; -IVIG 10 GM (PRIVIGEN) 100 ML IV SCH; -IVIG 20 GM (PRIVIGEN) 200 ML IV SCH; -diphenhydrAMINE 25 MG TAB (BENADRYL) PO SCH; -diphenhydrAMINE 50 MG/ML INJ (BENADRYL) IV PRN
--- NOTE | 2022-03-04 10:56 | Diagnostic Imaging Report ---
PROCEDURE: Pelvic complete, transabdominal and transvaginal sonogram. Limited pelvic doppler. TECHNIQUE: Multiple real-time grayscale images were obtained of the pelvis in various projections transabdominally and transvaginally. Limited pelvic duplex images were obtained. HISTORY: SCREENING, IUD PLACEMENT CHECK COMPARISON: None available. FINDINGS: Uterus: The uterus is retroverted and measures 6.5 x 3.6 x 5.3 cm. The myometrium is homogeneous without fibroids. Endometrium: The endometrium is obscured by an IUD is seen within the fundus. There is no fluid within the endometrial cavity. Adnexa: Both ovaries are nonvisualized secondary to overlying bowel gas and poor ultrasound penetration. Other: There is no free fluid within the pelvis. IMPRESSION: 1. IUD present within the uterine fundus. 2. Nonvisualized ovaries. Dictated by: Dictated on workstation # [id number]
--- NOTE | 2022-03-04 12:42 | Diagnostic Imaging Report ---
INDICATION: Routine screening. No prior mammograms are available for comparison. This a baseline study. 2-D and 3-D bilateral screening mammography was performed with CAD. Both breasts are heterogeneously dense, limiting the sensitivity of mammography. No mass or malignant-appearing microcalcifications are seen. There appears to be a right chest wall port in the right axilla. IMPRESSION: No mammographic features suspicious for malignancy are identified. ACR BI-RADS Category 1: Negative. Result letter will be mailed to the patient. Note: At least 10% of breast cancer is not imaged by mammography. BI-RADS Category 1 Dictated by: Dictated on workstation # [id number]
== END ==
LOC: RAD 10:00
PROVIDERS: ATTEND Surgery
DX: Z30.431 Encounter for routine checking of intrauterine contraceptive device (principal); Z12.31 Encounter for screening mammogram for malignant neoplasm of breast
CPT/HCPCS: 76830; 76856; 77063; 77067

== ENCOUNTER 2022-03-29 01:46 | Inpatient (IN) | payer BC ==
[2022-03-29] VITALS (7 sets, daily range): BP systolic 127–163; BP diastolic 60–87
[~2022-03-29] VITALS: Ht 160 cm; Wt 127.0 kg
--- NOTE | 2022-03-29 02:12 | ED Respiratory ---
General Chief Complaint: Respiratory Problems Stated Complaint: ASTHMA Source: patient Exam Limitations: no limitations History of Present Illness Date Seen by Provider: Mar 29, 2022 Time Seen by Provider: 01:54 Initial Comments Patient to the ER by private conveyance chief complaint of shortness of air, wheezing, coughing productive of white sputum and left chest pain on deep inspiration or coughing. She has had this pain before and said it was pleurisy then. She has not been on steroids for about 90 days. She has not been on antibiotics recently. She denies any fevers or chills. She did a home COVID test which was negative this morning. She would like to have a COVID test today 4 months because she has to go for IVIG treatment next week with ingrid Antonio. Allergies and Home Medications Allergies Coded Allergies: IgA less than or equal to 50 mcg/mL (Verified Allergy, Intermediate, RASH ON FACE, 02/01/19) glucose (Verified Allergy, Intermediate, RASH ON FACE, 02/01/19) glycine (Verified Allergy, Intermediate, RASH ON FACE, 02/01/19) immune globulin,alpha (IgA) greater than 50 mcg/mL (Verified Allergy, Unknown, 02/01/19) immune globulin,gamma (IgG) human (Verified Allergy, Unknown, 02/01/19) maltose (Verified Allergy, Unknown, 02/01/19) Uncoded Allergies: GAMMAGARD (Allergy, Intermediate, RASH ON FACE, 02/01/19) Patient Home Medication List Home Medication List Reviewed: Yes Adalimumab (Humira) 40 Mg/0.4 Ml Syringekit, 40 MG SQ EVERY 2 WEEKS, (Reported) Entered as Reported by: ALISTAIR ORELLANA on 08/02/19 1027 Last Action: Reviewed Albuterol Sulfate (Proair Hfa) 1 Puff Puff, 2 PUFF IH Q4H PRN for SHORTNESS OF BREATH, (Reported) Entered as Reported by: ASAD CARLOS on 07/25/19 1316 Last Action: Reviewed Albuterol Sulfate (Albuterol Sulfate) 2.5 Mg/3 Ml (0.083 %) Vial.neb, 2.5 MG INH Q4H Prescribed by: WANDY STARR on 03/30/22 1010 Azathioprine (Imuran) 50 Mg Tablet, 100 MG PO HS, (Reported) Entered as Reported by: ASAD CARLOS on 07/25/19 1249 Last Action: Reviewed Azithromycin (Zithromax) 250 Mg Tablet, 250 MG PO DAILY Prescribed by: WANDY STARR on 03/30/22 1010 Bupropion HCl (Bupropion Xl) 150 Mg Tab.er.24h, 150 MG PO DAILY, (Reported) Entered as Reported by: GURPREET DUFF on 06/01/21 1347 Last Action: Reviewed Cefdinir (Cefdinir) 300 Mg Capsule, 300 MG PO BID Prescribed by: WANDY STARR on 03/30/22 1008 Cholecalciferol (Vitamin D3) (Vitamin D3) 50 Mcg (2000 Unit) Tablet, 100 MCG PO HS, (Reported) Entered as Reported by: ANGELA MUNOZ on 03/30/22 0940 Last Action: Reviewed Citalopram Hydrobromide (Celexa) 40 Mg Tablet, 40 MG PO HS, (Reported) Entered as Reported by: GURPREET DUFF on 06/01/21 1347 Last Action: Reviewed Fluticasone/Vilanterol (Breo Ellipta 200-25 Mcg INH) 200 Mcg-25 Mcg/Dose Blst.w.dev, 1 PUFF IH DAILY, (Reported) Entered as Reported by: ASAD CARLOS on 07/25/19 1249 Last Action: Reviewed Immune Globulin,Gamma(IgG) (Privigen 10% Vial) 10 % Vial, 30 GM IV MONTHLY, (Re ported) Entered as Reported by: ANGELA MUNOZ on 03/30/22 0940 Last Action: Reviewed Loratadine (Allergy Relief) 10 Mg Tablet, 10 MG PO HS, (Reported) Entered as Reported by: ABRAHAM LU on 03/29/22 1637 Last Action: Reviewed Methylprednisolone (Methylprednisolone Dose Pack) 4 Mg Tab.ds.pk, 4 MG PO UD Prescribed by: WANDY STARR on 03/30/22 1010 Montelukast Sodium (Montelukast Sodium) 10 Mg Tablet, 10 MG PO HS, (Reported) Entered as Reported by: ASAD CARLOS on 07/25/19 1316 Last Action: Reviewed Pantoprazole Sodium (Pantoprazole Sodium) 40 Mg Tablet.dr, 40 MG PO HS, (Reported) Entered as Reported by: ABRAHAM LU on 03/29/22 1632 Last Action: Reviewed Tiotropium [place] (Spiriva) 18 Mcg Aerp, 2 PUFF IH DAILY, (Reported) Entered as Reported by: GURPREET DUFF on 06/01/211346 Last Action: Reviewed Discontinued Medications Cholecalciferol (Vitamin D3) (Vitamin D3) 125 Mcg (5000 Unit) Capsule, 2 CAP PO DAILY, (Reported) Discontinued Reason: Prescription changed Entered as Reported by: GURPREET DUFF on 06/01/211346 Last Action: Reviewed Hydrocodone/Acetaminophen (Hydrocodone-Acetamin 5-325 mg) 1 Each Tablet, 1 TAB PO Q4H PRN for PAIN-MODERATE (5-7) Discontinued Reason: No Longer Taking Prescribed by: LATIA MILES on 06/04/21 1133 Last Action: Discontinued Immune Globulin,Gamma(IgG) (Privigen 10% Vial) 10 % Vial, 50 ML IV, (Reported) Discontinued Reason: No Longer Taking Entered as Reported by: ANGELA MUNOZ on 03/30/22 0940 Last Action: Discontinued Sulfamethoxazole/Trimethoprim (Bactrim 400-80 mg Tablet) 400 Mg-80 Mg Tablet, 2 EACH PO BID, (Reported) Discontinued Reason: New Order Entered as Reported by: GURPREET DUFF on 06/01/211346 Last Action: Discontinued Sulfamethoxazole/Trimethoprim (Sulfamethoxazole-Tmp Ss Tablet) 400 Mg-80 Mg Tab let, 1 EACH PO HS, (Reported) Entered as Reported by: ABRAHAM LU on 03/29/22 1630 Last Action: Reviewed Review of Systems Review of Systems Constitutional: No chills, No diaphoresis, No fever; malaise EENTM: No ear discharge, No ear pain Respiratory: see HPI, cough, phlegm, short of breath, wheezing Cardiovascular: No chest pain, No edema Gastrointestinal: No abdominal pain, No constipation, No diarrhea, No nausea Genitourinary: No discharge, No dysuria Musculoskeletal: No back pain, No joint pain All Other Systems Reviewed Negative Unless Noted: Yes Past Aedzgeu-Kjhwoo-Taqikl Hx Patient Social History Tobacco Use?: No Use of E-Cig and/or Vaping dev: No Substance use?: No Immunizations Up To Date First/Initial COVID19 Vaccinat: OCTOBER 2020 Second COVID19 Vaccination Derick: NOVEMBER 2020 Seasonal Allergies Seasonal Allergies: Yes Past Medical History Surgeries: Yes (HERNIA SURGERY, PORT X 4, TRACH, BILATERAL ANKLE SURGERY) Abdominal, Bowel Surgery, Orthopedic, Tracheostomy Respiratory: Yes Asthma, Sleep Apnea Currently Using CPAP: Yes Cardiac: No Neurological: No Genitourinary: No Gastrointestinal: Yes Gastroesophageal Reflux, Crohns Disease Musculoskeletal: Yes Rheumatoid Arthritis Endocrine: No HEENT: Yes (WEARS GLASSES) Hearing Impairment: Denies Cancer: No Psychosocial: Yes Anxiety, Depression Integumentary: Yes Eczema Blood Disorders: Yes (ANEMIA) Physical Exam Vital Signs - First Documented 03/29/22 03/29/22 01:53 01:56 Temp 36.8 Pulse 96 Resp 32 B/P (MAP) 151/75 (100) Pulse Ox 77 O2 Delivery Room Air O2 Flow Rate 3.00 Capillary Refill : Height: '" Weight: lbs. oz. kg; 48.71 BMI Method: General Appearance: WD/WN, no apparent distress Eyes: Bilateral Eye Normal Inspection, Bilateral Eye PERRL, Bilateral Eye EOMI HEENT: PERRL/EOMI, normal ENT inspection, pharynx normal Respiratory: respiratory distress (Oxygen saturations 77 to 78% on room air with tachypnea on arrival.), decreased breath sounds, accessory muscle use (Mild), wheezing (Faint expiratory) Cardiovascular: normal peripheral pulses, regular rate, rhythm Gastrointestinal: normal bowel sounds, non tender, soft Neurologic/Psychiatric: alert, normal mood/affect, oriented x 3 Skin: normal color, warm/dry Progress/Results/Core Measures Suspected Sepsis SIRS Temperature: Pulse: Respiratory Rate: Blood Pressure / Mean: Laboratory Tests 03/29/22 02:24: Creatinine 0.99, INR Comment 1.3, Total Bilirubin 2.1H Results/Orders Lab Results Laboratory Tests Test 03/29/22 02:15 03/29/22 02:24 03/29/22 02:34 Range/Units Influenza Type A (RT-PCR) Not Detected Not Detecte Influenza Type B (RT-PCR) Not Detected Not Detecte SARS-CoV-2 RNA (RT-PCR) Not Detected Not Detecte White Blood Count 6.2 4.3-11.0 10^3/uL Red Blood Count 3.88 3.80-5.11 10^6/uL Hemoglobin 13.3 11.5-16.0 g/dL Hematocrit 39 35-52 % Mean Corpuscular Volume 101 H 80-99 fL Mean Corpuscular Hemoglobin 34 25-34 pg Mean Corpuscular Hemoglobin Concent 34 32-36 g/dL Red Cell Distribution Width 14.9 H 10.0-14.5 % Platelet Count 49 L 130-400 10^3/uL Mean Platelet Volume 13.2 H 9.0-12.2 fL Immature Granulocyte % (Auto) 1 % Neutrophils (%) (Auto) 87 H 42-75 % Lymphocytes (%) (Auto) 4 L 12-44 % Monocytes (%) (Auto) 8 0-12 % Eosinophils (%) (Auto) 1 0-10 % Basophils (%) (Auto) 0 0-10 % Neutrophils # (Auto) 5.4 1.8-7.8 10^3/uL Lymphocytes # (Auto) 0.2 L 1.0-4.0 10^3/uL Monocytes # (Auto) 0.5 0.0-1.0 10^3/uL Eosinophils # (Auto) 0.0 0.0-0.3 10^3/uL Basophils # (Auto) 0.0 0.0-0.1 10^3/uL Immature Granulocyte # (Auto) 0.0 0.0-0.1 10^3/uL Neutrophils % (Manual) 68 % Monocytes % (Manual) 8 % Eosinophils % (Manual) 2 % Band Neutrophils 22 % Toxic Granulation 1+ Platelet Estimate DECREASED Percent Immature Platelet Fraction 17.0 H 0.0-7.6 % Anisocytosis SLIGHT Prothrombin Time 16.8 H 12.2-14.7 SEC INR Comment 1.3 0.8-1.4 Activated Partial Thromboplast Time 39 H 24-35 SEC Sodium Level 135 135-145 MMOL/L Potassium Level 3.6 3.6-5.0 MMOL/L Chloride Level 103 98-107 MMOL/L Carbon Dioxide Level 20 L 21-32 MMOL/L Anion Gap 12 5-14 MMOL/L Blood Urea Nitrogen 6 L 7-18 MG/DL Creatinine 0.99 0.60-1.30 MG/DL Estimat Glomerular Filtration Rate 74 BUN/Creatinine Ratio 6 Glucose Level 137 H 70-105 MG/DL Calcium Level 8.9 8.5-10.1 MG/DL Corrected Calcium 8.8 8.5-10.1 MG/DL Magnesium Level 1.5 L 1.6-2.4 MG/DL Total Bilirubin 2.1 H 0.1-1.0 MG/DL Aspartate Amino Transf (AST/SGOT) 24 5-34 U/L Alanine Aminotransferase (ALT/SGPT) 17 0-55 U/L Alkaline Phosphatase 77 40-136 U/L Myoglobin 23.1 10.0-92.0 NG/ML Troponin I < 0.028 <0.028 NG/ML C-Reactive Protein High Sensitivity 14.60 H 0.00-0.50 MG/DL Total Protein 6.9 6.4-8.2 GM/DL Albumin 4.1 3.2-4.5 GM/DL Serum Test, Qualitative NEGATIVE NEGATIVE Bedside Blood Gas pH (LAB) 7.342 7.310-7.410 Bedside Blood Gas pCO2 (LAB) 36.3 L 41.0-51.0 mmHg Bedside Blood Gas pO2 (LAB) 78 L 80-105 mmHg Bedside Blood Gas HCO3 (LAB) 19.7 L 23.0-28.0 mmol/L POC Blood Gas Total CO2 Calc 21 L 24-29 mmol/L Bedside Bl Gas O2 Saturation (Calc) 95 95-98 % Bedside Arterial Blood Base Excess -6 L -2-3 mmol/L My Orders Orders - VON,EL J Ekg Tracing (03/29/22 01:59) Methylprednisolone Sod Succ (Solu-Medrol (03/29/22 02:15) Albuterol/Ipra Inhalation Soln (Duoneb I (03/29/22 02:15) Chest 1 View, Ap/Pa Only (03/29/22 02:03) Svn Small Volume Nebulizer (03/29/22 02:03) Cbc With Automated Diff (03/29/22 02:03) Comprehensive Metabolic Panel (03/29/22 02:03) Hs C Reactive Protein (03/29/22 02:03) Magnesium (03/29/22 02:05) Myoglobin Serum (03/29/22 02:05) Protime With Inr (03/29/22 02:05) Partial Thromboplastin Time (03/29/22 02:05) O2 (03/29/22 02:05) Monitor-Rhythm Ecg Trace Only (03/29/22 02:05) Troponin I [place] (03/29/22 02:05) Aspirin Chewable Tablet (Baby Aspirin Ch (03/29/22 02:15) Covid 19 Inhouse Test (03/29/22 02:12) Covid-19 External Lab Results (03/29/22 02:12) Influenza A And B By Pcr (03/29/22 02:12) Hcg,Qualitative Serum (03/29/22 02:28) Manual Differential (03/29/22 02:24) Ceftriaxone 1 Gm Pre-Mix (Rocephin 1 Gm (03/29/22 03:15) Azithromycin Injection (Zithromax Inject (03/29/22 03:15) Blood Culture (03/29/22 03:08) Medications Given in ED Vital Signs/I&O 03/29/22 03/29/22 03/29/22 01:53 01:56 02:34 Temp 36.8 Pulse 96 Resp 32 B/P (MAP) 151/75 (100) Pulse Ox 77 98 O2 Delivery Room Air Nasal Cannula Nasal Cannula O2 Flow Rate 3.00 3.00 Capillary Refill : Progress Note : Time: 02:17 Progress Note DuoNeb, Solu-Medrol, chest x-ray aspirin and labs. Her chest pain sounds pleuritic in nature. She does not have history of coronary disease. She is having some asthma exacerbation and is out of her albuterol at home. She been having this chest pain for greater part of the day. She would like to be tested for COVID-19 again. Will see how she is feeling after a DuoNeb. ECG Initial ECG Impression Date: Mar 29, 2022 Initial ECG Impression Time: 02:04 Initial ECG Rate: 93 Initial ECG Rhythm: Normal Sinus Initial ECG Intervals: Normal Initial ECG Impression: Normal Comment Normal sinus rhythm without clinically relevant ST elevation or depression. Diagnostic Imaging Diagonstic Imaging: Xray Plain Films/CT/US/NM/MRI: chest Comments [facility], [place] NAME: JERRY CATALAN [facility] REC#: [id number] PT STATUS: ADM IN : 1980 PHYSICIAN: EL LONGORIA MD ADMIT DATE: 03/29/22/ Signed Date of Exam:03/29/22 CHEST 1 VIEW, AP/PA ONLY CHEST 1 VIEW, AP/PA ONLY Indication: Shortness of air Comparison: 06/04/2021 Findings: Stable right IJ Port-A-Cath. Low lung volumes. Hazy opacities are noted in both lung bases. Potential small pleural effusions. No pneumothorax. Stable enlargement of the cardiac silhouette. Impression: 1. Persistent basilar opacities that may be on the basis of atelectasis or edema. Dictated by: Dictated on workstation # [id number] Dict: 03/29/22 0438 Trans: 03/29/22821 ANATOLIY [id number] Interpreted by: ELIZABETH COFFEY MD Electronically signed by: ELIZABETH COFFEY MD 03/29/22821 Reviewed: Reviewed by Me Departure Communication (Admissions) Time/Spoke to Admitting Phy: 03:[address] Starr who agrees to admit the patient Rocephin, azithromycin and oxygen. Impression Primary Impression: Acute on chronic respiratory failure with hypoxemia Additional Impression: Pneumonia Qualified Codes: J18.9 - Pneumonia, unspecified organism Disposition: ADMITTED INPATIENT Condition: Stable Admissions Decision to Admit Reason: Admit from ER (General) Decision to Admit/Date: Mar 29, 2022 Time/Decision to Admit Time: 03:10 Departure-Patient Inst. Referrals: WANDY STARR DO (PCP/Family) Primary Care Physician Scripts Albuterol Sulfate (Albuterol Sulfate) 2.5 Mg/3 Ml (0.083 %) Vial.neb 2.5 MG INH Q4H, #50 EA Prov: WANDY STARR DO 03/30/22 Methylprednisolone (Methylprednisolone Dose Pack) 4 Mg Tab.ds.pk 4 MG PO UD for 6 Days, #21 PKG PER DOSE PACK INSTRUCTIONS Prov: WANDY STARR DO 03/30/22 Azithromycin (Zithromax) 250 Mg Tablet 250 MG PO DAILY, #4 TAB Prov: WANDY STARR DO 03/30/22 Cefdinir (Cefdinir) 300 Mg Capsule 300 MG PO BID, #14 CAP Prov: WANDY STARR DO 03/30/22 EL LONGORIA Mar 29, 2022 02:12
[2022-03-29] MEDS ORDERED: ASPIRIN 81 MG CHEW (CHILDREN'S ASA) PO ONE (02:15)
[2022-03-29] MEDS ORDERED: methylPREDNISolone 125 MG (Solu-MEDROL) VIAL IVP ONE (02:15)
[2022-03-29] MEDS ORDERED: RT-ALBUTEROL/IPRATROPIUM 3 ML (DUONEB) VIAL INH ONE (02:15)
[2022-03-29 02:32] LABS: BASOPHILS % (AUTO) 0 % (0-10); HEMATOCRIT 39 % (35-52); HEMOGLOBIN 13.3 g/dL (11.5-16.0); MEAN CORPUSCULAR HEMOGLOBIN 34 pg (25-34); MEAN CORPUSCULAR HGB CONC 34 g/dL (32-36); MEAN CORPUSCULAR VOLUME 101 fL (80-99)
[2022-03-29 02:34] LABS: EOSINOPHILS % (AUTO) 1 % (0-10); LYMPHOCYTES # (AUTO) 0.2 10^3/uL (1.0-4.0); LYMPHOCYTES % (AUTO) 4 % (12-44); MEAN PLATELET VOLUME 13.2 fL (9.0-12.2); MONOCYTES # (AUTO) 0.5 10^3/uL (0.0-1.0); MONOCYTES % (AUTO) 8 % (0-12); NEUTROPHILS # (AUTO) 5.4 10^3/uL (1.8-7.8); NEUTROPHILS % (AUTO) 87 % (42-75); WHITE BLOOD COUNT 6.2 10^3/uL (4.3-11.0)
[2022-03-29 02:42] LABS: ALBUMIN 4.1 GM/DL (3.2-4.5); CHLORIDE 103 MMOL/L (98-107)
[2022-03-29 02:43] LABS: POTASSIUM 3.6 MMOL/L (3.6-5.0); SODIUM 135 MMOL/L (135-145)
[2022-03-29 02:44] LABS: CALCIUM 8.9 MG/DL (8.5-10.1); INR 1.3 (0.8-1.4); PROTHROMBIN TIME PATIENT 16.8 SEC (12.2-14.7)
[2022-03-29 02:45] LABS: GLUCOSE 137 MG/DL (70-105); TOTAL PROTEIN 6.9 GM/DL (6.4-8.2)
[2022-03-29 02:46] LABS: CARBON DIOXIDE 20 MMOL/L (21-32)
[2022-03-29 02:47] LABS: BILIRUBIN,TOTAL 2.1 MG/DL (0.1-1.0)
[2022-03-29 02:48] LABS: ALKALINE PHOSPHATASE 77 U/L (40-136)
[2022-03-29 02:49] LABS: CREATININE SERUM 0.99 MG/DL (0.60-1.30); GFR ESTIMATED 74
[2022-03-29 02:50] LABS: BUN/CREATININE RATIO 6
[2022-03-29 02:51] LABS: MAGNESIUM 1.5 MG/DL (1.6-2.4)
[2022-03-29 02:52] LABS: ALANINE AMINOTRANSFERASE 17 U/L (0-55)
[2022-03-29 03:03] LABS: BAND NEUTROPHILS 22 %; EOSINOPHILS % (MANUAL) 2 %; MONOCYTES % (MANUAL) 8 %; NEUTROPHILS % (MANUAL) 68 %
[2022-03-29 03:04] LABS: ANISOCYTOSIS SLIGHT; PLATELET COUNT 49 10^3/uL (130-400); PLATELET ESTIMATE DECREASED; TOXIC GRANULATION/VACUOLAZATIO 1+
[2022-03-29] MEDS ORDERED: cefTRIAXone 1 GM PRE-MIX 50 ML IV ONE (03:15)
[2022-03-29] MEDS ORDERED: AZITHROMYCIN INJECTION 500 MG in NS (IVPB) 250 ML IV ONE (03:15)
[2022-03-29] MEDS ORDERED: LACTATED RINGERS 1,000 ML IV ONE (04:16)
[2022-03-29] MEDS ORDERED: RT-ALBUTEROL/IPRATROPIUM 3 ML (DUONEB) VIAL INH PRN (04:45)
[2022-03-29] MEDS ORDERED: ONDANSETRON 4 MG/2 ML (SDV) Z0FRAN IV PRN (05:00)
[2022-03-29] MEDS: LACTATED RINGERS 1,000 ML IV SCH ×3 (05:09→20:39)
[2022-03-29] MEDS: ACETAMINOPHEN 325 MG TABLET PO PRN ×4 (05:12→23:29)
--- NOTE | 2022-03-29 05:29 | Diagnostic Imaging Report ---
CHEST 1 VIEW, AP/PA ONLY Indication: Shortness of air Comparison: 06/04/2021 Findings: Stable right IJ Port-A-Cath. Low lung volumes. Hazy opacities are noted in both lung bases. Potential small pleural effusions. No pneumothorax. Stable enlargement of the cardiac silhouette. Impression: 1. Persistent basilar opacities that may be on the basis of atelectasis or edema. Dictated by: Dictated on workstation # [id number]
[2022-03-29 06:56] LABS: BASOPHILS % (AUTO) 0 % (0-10); EOSINOPHILS % (AUTO) 0 % (0-10); HEMOGLOBIN 12.4 g/dL (11.5-16.0)
[2022-03-29 06:58] LABS: HEMATOCRIT 36 % (35-52); LYMPHOCYTES # (AUTO) 0.1 10^3/uL (1.0-4.0); LYMPHOCYTES % (AUTO) 2 % (12-44); MEAN CORPUSCULAR HEMOGLOBIN 34 pg (25-34); MEAN CORPUSCULAR HGB CONC 35 g/dL (32-36); MEAN CORPUSCULAR VOLUME 99 fL (80-99); MEAN PLATELET VOLUME 12.7 fL (9.0-12.2); MONOCYTES # (AUTO) 0.2 10^3/uL (0.0-1.0); MONOCYTES % (AUTO) 5 % (0-12); NEUTROPHILS % (AUTO) 93 % (42-75); WHITE BLOOD COUNT 5.3 10^3/uL (4.3-11.0)
[2022-03-29 07:04] LABS: PLATELET COUNT 35 10^3/uL (130-400)
[2022-03-29 07:07] LABS: POTASSIUM 3.7 MMOL/L (3.6-5.0)
[2022-03-29 07:09] LABS: CALCIUM 8.7 MG/DL (8.5-10.1)
[2022-03-29 07:13] LABS: CREATININE SERUM 0.84 MG/DL (0.60-1.30)
[2022-03-29 08:04] LABS: SMEAR SCAN COMMENT YES
--- NOTE | 2022-03-29 08:24 | Progress Note ---
MYKE MARMOLEJO 03/29/22 0824: Subjective Date Seen by a Provider: Mar 29, 2022 Time Seen by a Provider: 08:19 Subjective/Events-last exam Pt complains of left chest pain during inspiration. Pt states that they got back from [place] Tuesday, and came in Tuesday night because she felt unable to breathe. Pt reports headache, fever and chills starting Tuesday nigh.t Objective Exam Last Set of Vital Signs Vital Signs Date Time Temp Pulse Resp B/P (MAP) Pulse Ox O2 Delivery O2 Flow Rate FiO2 03/29/22 08:00 36.2 83 18 128/70 (89) 91 Nasal Cannula 2.00 Capillary Refill : Less Than 3 Seconds General: Alert, Oriented X3, Mild Distress Lungs: Other (Crackles, wheezes on expiration, short/shallow breaths) Heart: Regular Rate, No Murmurs Extremities: No Clubbing, No Edema, No Tenderness/Swelling Skin: No Rashes Neuro: Normal Speech Results Lab Laboratory Tests 03/29/22 02:15: Influenza Type A (RT-PCR) Not Detected, Influenza Type B (RT-PCR) Not Detected, SARS-CoV-2 RNA (RT-PCR) Not Detected 03/29/22 02:24: White Blood Count 6.2, Red Blood Count 3.88, Hemoglobin 13.3, Hematocrit 39, Mean Corpuscular Volume 101H, Mean Corpuscular Hemoglobin 34, Mean Corpuscular Hemoglobin Concent 34, Red Cell Distribution Width 14.9H, Platelet Count 49L, Mean Platelet Volume 13.2H, Immature Granulocyte % (Auto) 1, Neutrophils (%) (Auto) 87H, Lymphocytes (%) (Auto) 4L, Monocytes (%) (Auto) 8, Eosinophils (%) (Auto) 1, Basophils (%) (Auto) 0, Neutrophils # (Auto) 5.4, Lymphocytes # (Auto) 0.2L, Monocytes # (Auto) 0.5, Eosinophils # (Auto) 0.0, Basophils # (Auto) 0.0, Immature Granulocyte # (Auto) 0.0, Neutrophils % (Manual) 68, Monocytes % (Manual) 8, Eosinophils % (Manual) 2, Band Neutrophils 22, Toxic Granulation 1+, Platelet Estimate DECREASED, Percent Immature Platelet Fraction 17.0H, Anisoc ytosis SLIGHT, Prothrombin Time 16.8H, INR Comment 1.3, Activated Partial Thromboplast Time 39H, Sodium Level 135, Potassium Level 3.6, Chloride Level 103, Carbon Dioxide Level 20L, Anion Gap 12, Blood Urea Nitrogen 6L, Creatinine 0.99, Estimat Glomerular Filtration Rate 74, BUN/Creatinine Ratio 6, Glucose Level 137H, Calcium Level 8.9, Corrected Calcium 8.8, Magnesium Level 1.5L, Total Bilirubin 2.1H, Aspartate Amino Transf (AST/SGOT) 24, Alanine Aminotransferase (ALT/SGPT) 17, Alkaline Phosphatase 77, Myoglobin 23.1, Troponin I < 0.028, C-Reactive Protein High Sensitivity 14.60H, Total Protein 6.9, Albumin 4.1, Serum Test, Qualitative NEGATIVE 03/29/22 02:34: Bedside Blood Gas pH (LAB) 7.342, Bedside Blood Gas pCO2 (LAB) 36.3L, Bedside Blood Gas pO2 (LAB) 78L, Bedside Blood Gas HCO3 (LAB) 19.7L, POC Blood Gas Total CO2 Calc 21L, Bedside Bl Gas O2 Saturation (Calc) 95, Bedside Arterial Blood Base Excess -6L 03/29/22 06:47: White Blood Count 5.3, Red Blood Count 3.63L, Hemoglobin 12.4, Hematocrit 36, Mean Corpuscular Volume 99, Mean Corpuscular Hemoglobin 34, Mean Corpuscular Hemoglobin Concent 35, Red Cell Distribution Width 14.7H, Platelet Count 35*L, Mean Platelet Volume 12.7H, Immature Granulocyte % (Auto) 0, Neutrophils (%) (Auto) 93H, Lymphocytes (%) (Auto) 2L, Monocytes (%) (Auto) 5, Eosinophils (%) (Auto) 0, Basophils (%) (Auto) 0, Neutrophils # (Auto) 5.0, Lymphocytes # (Auto) 0.1L, Monocytes # (Auto) 0.2, Eosinophils # (Auto) 0.0, Basophils # (Auto) 0.0, Immature Granulocyte # (Auto) 0.0, Percent Immature Platelet Fraction 16.2H, Sodium Level 135, Potassium Level 3.7, Chloride Level 105, Carbon Dioxide Level 17L, Anion Gap 13, Blood Urea Nitrogen 6L, Creatinine 0.84, Estimat Glomerular Filtration Rate 90, BUN/Creatinine Ratio 7, Glucose Level 137H, Calcium Level 8.7, Smear Scan YES Assessment/Plan Assessment/Plan Assess & Plan/Chief Complaint Dyspnea: Ceftriaxone and azithromycin ordered as well as an albuterol/ipratropium inhaler. Pt also given acetaminophen for pain. WANDY CARL DO 03/29/22 1727: Supervisory-Addendum Brief Verification & Attestation Participated in pt care: history, physical Personally performed: exam, history, supervision of care Care discussed with: Medical Student Procedures: n/a Results interpretation: Verified all documentation Patient seen and evaluated. See MYKE Florence Mar 29, 2022 08:24 WANDY CARL DO Mar 29, 2022 17:27
[2022-03-29] MEDS ORDERED: methylPREDNISolone 40 MG/ML (Solu-MEDROL) VIAL IV ONE (10:15)
[2022-03-29] MEDS: RT-ALBUTEROL/IPRATROPIUM 3 ML (DUONEB) VIAL INH SCH ×3 (10:22→21:24)
[2022-03-29] MEDS: methylPREDNISolone 40 MG/ML (Solu-MEDROL) VIAL IV SCH ×3 (13:12→23:26)
[2022-03-29] MEDS ORDERED: SULF-11 PO (16:30)
[2022-03-29] MEDS ORDERED: PANT40TA52 PO (16:32)
[2022-03-29] MEDS ORDERED: LORA-1025 PO (16:37)
--- NOTE | 2022-03-29 17:02 | History & Physical ---
History of Present Illness History of Present Illness Reason for visit/HPI This is a 41 year old female with a history of Common Variable Immunodeficiency, thrombocytopenia, crohn's, asthma, and chronic sinusitis who presented to the emergency room with cough, shortness of breath and wheezing. She was found to be hypoxic with an oxygen saturation of 77%. She had to be placed on oxygen at 3L NC. She will be admitted for acute respiratory failure with probable early pneumonia. Date of Admission Mar 29, 2022 at 03:20 Date Seen by a Provider: Mar 29, 2022 Time Seen by a Provider: 08:35 I consulted on this patient on 03/29/22 16:52 Attending Physician Wandy Starr DO Admitting Physician Admitting Physician: Wandy Starr DO Attending Physician: Wandy Starr DO Consult Allergies and Home Medications Allergies Coded Allergies: IgA less than or equal to 50 mcg/mL (Verified Allergy, Intermediate, RASH ON FACE, 02/01/19) glucose (Verified Allergy, Intermediate, RASH ON FACE, 02/01/19) glycine (Verified Allergy, Intermediate, RASH ON FACE, 02/01/19) immune globulin,alpha (IgA) greater than 50 mcg/mL (Verified Allergy, Unknown, 02/01/19) immune globulin,gamma (IgG) human (Verified Allergy, Unknown, 02/01/19) maltose (Verified Allergy, Unknown, 02/01/19) Uncoded Allergies: GAMMAGARD (Allergy, Intermediate, RASH ON FACE, 02/01/19) Patient Home Medication List Home Medication List Reviewed: Yes Adalimumab (Humira) 40 Mg/0.4 Ml Syringekit, 40 MG SQ every other week, (Reported) Entered as Reported by: ALISTAIR ORELLANA on 08/02/19 1027 Last Action: Reviewed Albuterol Sulfate (Proair Hfa) 1 Puff Puff, 2 PUFF IH Q4H PRN for WHEEZING, (Reported) Entered as Reported by: ASAD CARLOS on 07/25/19 1316 Last Action: Reviewed Azathioprine (Imuran) 50 Mg Tablet, 2 TAB PO HS, (Reported) Entered as Reported by: ASAD CARLOS on 07/25/19 1249 Last Action: Converted Bupropion HCl (Bupropion Xl) 150 Mg Tab.er.24h, 150 MG PO DAILY, (Reported) Entered as Reported by: GURPREET DUFF on 06/01/211346 Last Action: Converted Cholecalciferol (Vitamin D3) (Vitamin D3) 125 Mcg (5000 Unit) Capsule, 2 CAP PO DAILY, (Reported) Entered as Reported by: GURPREET DUFF on 06/01/211346 Last Action: Reviewed Citalopram Hydrobromide (Celexa) 40 Mg Tablet, 40 MG PO DAILY, (Reported) Entered as Reported by: GURPREET DUFF on 06/01/211346 Last Action: Converted Fluticasone/Vilanterol (Breo Ellipta 200-25 Mcg INH) 200 Mcg-25 Mcg/Dose Blst.w.dev, 2 EACH IH DAILY, (Reported) Entered as Reported by: ASAD CARLOS on 07/25/19 1249 Last Action: Continued Loratadine (Allergy Relief) 10 Mg Tablet, 10 MG PO HS, (Reported) Entered as Reported by: ABRAHAM LU on 03/29/22 1637 Last Action: Continued Montelukast Sodium (Montelukast Sodium) 10 Mg Tablet, 10 MG PO HS, (Reported) Entered as Reported by: ASAD CARLOS on 07/25/19 1316 Last Action: Continued Pantoprazole Sodium (Pantoprazole Sodium) 40 Mg Tablet.dr, 40 MG PO TID, (Reported) Entered as Reported by: ABRAHAM LU on 03/29/22 1632 Last Action: Continued Sulfamethoxazole/Trimethoprim (Sulfamethoxazole-Tmp Ss Tablet) 400 Mg-80 Mg Tablet, 2 EACH PO DAILY, (Reported) Entered as Reported by: ABRAHAM LU on 03/29/22 163 Last Action: Reviewed Tiotropium [place] (Spiriva) 1 Inh Aerp, 1 INH IH DAILY, (Reported) Entered as Reported by: GURPREET DUFF on 06/01/211346 Last Action: Continued Discontinued Medications Hydrocodone/Acetaminophen (Hydrocodone-Acetamin 5-325 mg) 1 Each Tablet, 1 TAB PO Q4H PRN for PAIN-MODERATE (5-7) Discontinued Reason: No Longer Taking Prescribed by: LATIA MILES on 06/04/21 1133 Last Action: Discontinued Sulfamethoxazole/Trimethoprim (Bactrim 400-80 mg Tablet) 400 Mg-80 Mg Tablet, 2 EACH PO BID, (Reported) Discontinued Reason: New Order Entered as Reported by: GURPREET DUFF on 06/01/21 1328 Last Action: Discontinued Past Tpgoupl-Lkyenu-Dfwnot Hx Patient Social History Tobacco Use?: No Smoking Status: Never a Smoker Use of E-Cig and/or Vaping dev: No Substance use?: No Alcohol Use?: No Pt feels they are or have been: No Immunizations Up To Date Date of Influenza Vaccine: May 15, 2019 First/Initial COVID19 Vaccinat: OCTOBER 2020 Second COVID19 Vaccination Derick: NOVEMBER 2020 Seasonal Allergies Seasonal Allergies: Yes Current Status status: No Advance Directives: No Communicates: Verbally Primary Language: Grenadian Preferred Spoken Language: Grenadian Is interpretation needed?: No Implanted or Applied Medical D: Port-a-cath Past Medical History Surgeries: Abdominal, Bowel Surgery, Orthopedic, Tracheostomy Asthma, Sleep Apnea Currently Using CPAP: Yes Gastroesophageal Reflux, Crohns Disease Rheumatoid Arthritis Hearing Impairment: Denies Anxiety, Depression Eczema Blood Disorders: Yes (ANEMIA) Review of Systems Constitutional: weakness Respiratory: cough, short of breath, wheezing Cardiovascular: chest pain Gastrointestinal: No RUQ, No LUQ, No RLQ, No LLQ, No no symptoms reported, No see HPI, No abdominal pain, No constipation, No diarrhea, No dysphagia, No hematemesis, No heartburn, No jaundice, No loss of appetite, No melena, No nausea, No vomiting, No other Genitourinary: No no symptoms reported, No see HPI, No decreased output, No discharge, No dysuria, No frequency, No hematuria, No hesitancy, No incontinence, No nocturia, No pain, No other Musculoskeletal: back pain, muscle weakness Skin: No no symptoms reported, No see HPI, No change in color, No change in erwin r/nails, No dryness, No hx of skin cancer, No lesions, No lumps, No pruritus, No rash, No other Psychiatric/Neurological: Weakness Physical Exam Vital Signs Vital Signs - First Documented 03/29/22 03/29/22 01:53 01:56 Temp 36.8 Pulse 96 Resp 32 B/P (MAP) 151/75 (100) Pulse Ox 77 O2 Delivery Room Air O2 Flow Rate 3.00 Capillary Refill : Less Than 3 Seconds Height, Weight, BMI Height: '" Weight: lbs. oz. kg; 49.60 BMI Method: General Appearance: Mild Distress HEENT: TM Abnormal (L), TM Abnormal (R) Neck: Supple Respiratory: Decreased Breath Sounds Cardiovascular: Regular Rate, Rhythm Gastrointestinal: Normal Bowel Sounds, Non Tender, Soft Rectal: Deferred Back: No CVA Tenderness Extremity: Non Tender, No Calf Tenderness, No Pedal Edema Neurologic/Psychiatric: Alert, Oriented x3 Skin: Warm/Dry Comments Laboratory Tests 03/29/22 02:15: Influenza Type A (RT-PCR) Not Detected, Influenza Type B (RT-PCR) Not Detected, SARS-CoV-2 RNA (RT-PCR) Not Detected 03/29/22 02:24: White Blood Count 6.2, Red Blood Count 3.88, Hemoglobin 13.3, Hematocrit 39, Mean Corpuscular Volume 101H, Mean Corpuscular Hemoglobin 34, Mean Corpuscular Hemoglobin Concent 34, Red Cell Distribution Width 14.9H, Platelet Count 49L, Mean Platelet Volume 13.2H, Immature Granulocyte % (Auto) 1, Neutrophils (%) (Auto) 87H, Lymphocytes (%) (Auto) 4L, Monocytes (%) (Auto) 8, Eosinophils (%) (Auto) 1, Basophils (%) (Auto) 0, Neutrophils # (Auto) 5.4, Lymphocytes # (Auto) 0.2L, Monocytes # (Auto) 0.5, Eosinophils # (Auto) 0.0, Basophils # (Auto) 0.0, Immature Granulocyte # (Auto) 0.0, Neutrophils % (Manual) 68, Monocytes % (Manua l) 8, Eosinophils % (Manual) 2, Band Neutrophils 22, Toxic Granulation 1+, Platelet Estimate DECREASED, Percent Immature Platelet Fraction 17.0H, Anisocytosis SLIGHT, Prothrombin Time 16.8H, INR Comment 1.3, Activated Partial Thromboplast Time 39H, Sodium Level 135, Potassium Level 3.6, Chloride Level 103, Carbon Dioxide Level 20L, Anion Gap 12, Blood Urea Nitrogen 6L, Creatinine 0.99, Estimat Glomerular Filtration Rate 74, BUN/Creatinine Ratio 6, Glucose Level 137H, Calcium Level 8.9, Corrected Calcium 8.8, Magnesium Level 1.5L, Total Bilirubin 2.1H, Aspartate Amino Transf (AST/SGOT) 24, Alanine Aminotransferase (ALT/SGPT) 17, Alkaline Phosphatase 77, Myoglobin 23.1, Troponin I < 0.028, C-Reactive Protein High Sensitivity 14.60H, Total Protein 6.9, Albumin 4.1, Serum Test, Qualitative NEGATIVE 03/29/22 02:34: Bedside Blood Gas pH (LAB) 7.342, Bedside Blood Gas pCO2 (LAB) 36.3L, Bedside Blood Gas pO2 (LAB) 78L, Bedside Blood Gas HCO3 (LAB) 19.7L, POC Blood Gas Total CO2 Calc 21L, Bedside Bl Gas O2 Saturation (Calc) 95, Bedside Arterial Blood Base Excess -6L 03/29/22 06:47: White Blood Count 5.3, Red Blood Count 3.63L, Hemoglobin 12.4, Hematocrit 36, Mean Corpuscular Volume 99, Mean Corpuscular Hemoglobin 34, Mean Corpuscular Hemoglobin Concent 35, Red Cell Distribution Width 14.7H, Platelet Count 35*L, Mean Platelet Volume 12.7H, Immature Granulocyte % (Auto) 0, Neutrophils (%) (Auto) 93H, Lymphocytes (%) (Auto) 2L, Monocytes (%) (Auto) 5, Eosinophils (%) (Auto) 0, Basophils (%) (Auto) 0, Neutrophils # (Auto) 5.0, Lymphocytes # (Auto) 0.1L, Monocytes # (Auto) 0.2, Eosinophils # (Auto) 0.0, Basophils # (Auto) 0.0, Immature Granulocyte # (Auto) 0.0, Percent Immature Platelet Fraction 16.2H, Sodium Level 135, Potassium Level 3.7, Chloride Level 105, Carbon Dioxide Level 17L, Anion Gap 13, Blood Urea Nitrogen 6L, Creatinine 0.84, Estimat Glomerular Filtration Rate 90, BUN/Creatinine Ratio 7, Glucose Level 137H, Calcium Level 8.7, Smear Scan YES Microbiology 03/29/22 Blood Culture - Preliminary, Resulted Gram Negative Bacillus 1 Assessment/Plan Assessment and Plan 1. Acute Respiratory Failure--continue oxygen 2. Acute Pneumonia--on rocephin/zithromax 3. Asthma--restart breo and spiriva, SVNS with duoneb q4hrs prn, start solumedrol 4. SCID--discussed with Dr. Antonio and she will follow up with her as scheduled this week 5. Thrombocytopenia--chronic, generally runs between 45-60,000, will add steroids and monitor 6. MYLA--resume home CPAP Admission Diagnosis Admission Status: Inpatient Order (span 2 midnights) Reason for Inpatient Admission: Will need oxygen and IV abx and steroids for at least 48hrs WANDY STARR DO Mar 29, 2022 17:02
[2022-03-29] MEDS ORDERED: PATIENT MAY USE OWN MED,SINGLE MED PO SCH (17:15)
[2022-03-29] MEDS: AZATHIOPRINE 50 MG TABLET PO SCH (20:35)
[2022-03-29] MEDS: MONTELUKAST 10 MG (SINGULAIR) TAB PO SCH (20:35)
[2022-03-29] MEDS: LORATADINE (CLARITIN) 10 MG TAB PO SCH (20:35)
[2022-03-29] MEDS: PANTOPRAZOLE 40 MG (PROTONIX) TAB PO SCH (20:35)
[2022-03-30] MEDS: RT-ALBUTEROL/IPRATROPIUM 3 ML (DUONEB) VIAL INH SCH ×4 (03:33→20:22)
[2022-03-30 03:42] VITALS: BP 140/86
[2022-03-30] MEDS: LACTATED RINGERS 1,000 ML IV SCH (05:01)
[2022-03-30] MEDS: methylPREDNISolone 40 MG/ML (Solu-MEDROL) VIAL IV SCH ×4 (05:01→23:02)
[2022-03-30] MEDS: AZITHROMYCIN 250 MG TAB (ZITHROMAX) PO SCH (05:02)
[2022-03-30] MEDS: cefTRIAXone 1 GM/50 ML (PRE-MIX) IV SCH (05:02)
[2022-03-30 05:44] LABS: MEAN PLATELET VOLUME 14.5 fL (9.0-12.2); WHITE BLOOD COUNT 3.8 10^3/uL (4.3-11.0)
[2022-03-30 05:52] LABS: POTASSIUM 4.1 MMOL/L (3.6-5.0)
[2022-03-30 05:53] LABS: CALCIUM 9.3 MG/DL (8.5-10.1)
[2022-03-30 05:57] LABS: CREATININE SERUM 0.76 MG/DL (0.60-1.30)
[2022-03-30 08:00] VITALS: BP 168/82
--- NOTE | 2022-03-30 08:13 | Progress Note ---
MYKE MARMOLEJO 03/30/22 0813: Subjective Date Seen by a Provider: Mar 30, 2022 Time Seen by a Provider: 08:08 Subjective/Events-last exam Pt reports less chest pain on inspiration today. Pt also reports that they haven't had any fever/chills since yesterday. Review of Systems General: No Chills, No Night Sweats HEENT: No Head Aches, No Visual Changes, No Eye Pain Cardiovascular: No: Palpitations Gastrointestinal: No: Nausea, Vomiting, Abdominal Pain Genitourinary: No Dysuria, No Incontinence, No Hematuria Neurological: No: Weakness, Numbness, Confusion Objective Exam Last Set of Vital Signs Vital Signs Date Time Temp Pulse Resp B/P (MAP) Pulse Ox O2 Delivery O2 Flow Rate FiO2 03/30/22 03:42 36.3 83 20 140/86 (104) 91 NIV CPAP 03/29/22 21:24 3.00 Capillary Refill : Less Than 3 Seconds I&O Intake and Output 03/30/22 00:00 Intake Total 3704 ml Output Total 1300 ml Balance 2404 ml Intake Oral 2404 ml IV Total 1300 ml Output Urine Total 1300 ml # Voids 3 # Bowel Movements 1 Daily Weight Change No General: Alert, Oriented X3 HEENT: Atraumatic Lungs: Other (Pt's breathing is still somewhat shallow, but improved) Heart: Regular Rate, No Murmurs Extremities: No Clubbing, No Tenderness/Swelling Skin: No Rashes Neuro: Normal Speech Results Lab Laboratory Tests 03/30/22 05:15: White Blood Count 3.8L, Red Blood Count 3.48L, Hemoglobin 12.0, Hematocrit 35, Mean Corpuscular Volume 101H, Mean Corpuscular Hemoglobin 35H, Mean Corpuscular Hemoglobin Concent 34, Red Cell Distribution Width 15.1H, Platelet Count 38*L, Mean Platelet Volume 14.5H, Percent Immature Platelet Fraction 21.7H, Sodium Level 137, Potassium Level 4.1, Chloride Level 106, Carbon Dioxide Level 19L, Anion Gap 12, Blood Urea Nitrogen 10, Creatinine 0.76, Estimat Glomerular Filtration Rate 102, BUN/Creatinine Ratio 13, Glucose Level 159H, Calcium Level 9.3 Microbiology 03/29/22 Blood Culture - Preliminary, Resulted Gram Negative Bacillus 1 Assessment/Plan Assessment/Plan Assess & Plan/Chief Complaint 1. Acute Respiratory Failure--continue oxygen 2. Sepsis-- gram negative bacillus, sent to [facility] for further studies, continue rocephin/zithromax 3. Acute Pneumonia--on rocephin/zithromax 4. Asthma--continue breo and spiriva, SVNS with duoneb q4hrs prn, continue solumedrol 5. SCID--discussed with Dr. Antonio and she will follow up with her as scheduled this week 6. Thrombocytopenia--chronic, generally runs between 45-60,000, continue steroids and monitor 7. MYLA--resume home CPAP WANDY CARL DO 03/30/22 1234: Supervisory-Addendum Brief Verification & Attestation Participated in pt care: history, physical Personally performed: exam, history, supervision of care Care discussed with: Medical Student Procedures: n/a Results interpretation: Verified all documentation Patient seen and evaluated. Plan was for DC but then ambulated without oxygen and desated to 77% so will start IS, up to chair and reassess tomorrow. Platelets up to 38,000 today. MYKE MARMOLEJO Mar 30, 2022 08:13 WANDY CARL DO Mar 30, 2022 12:34
[2022-03-30] MEDS: buPROPion SR 150 MG (WELLBUTRIN SR) TAB PO SCH (08:38)
[2022-03-30] MEDS: PANTOPRAZOLE 40 MG (PROTONIX) TAB PO SCH ×2 (08:38→12:21)
[2022-03-30] MEDS ORDERED: NON-FORMULARY MEDICATION 1 EA EA (Citalopram Hydrobromide (Celexa) 40 MG) PO SCH (09:00)
[2022-03-30] MEDS ORDERED: TIOTROPIUM BROMIDE (SPIRIVA) 5'S INHALER IH SCH (09:00)
[2022-03-30] MEDS ORDERED: NON-FORMULARY MEDICATION 1 EA EA (Bupropion HCl (Bupropion Xl) 150 MG) PO SCH (09:00)
[2022-03-30] MEDS ORDERED: FLUTICASONE/VILANTEROL 200 MCG 14'S (BREO) IH SCH (09:00)
--- NOTE | 2022-03-30 09:05 | Diagnostic Imaging Report ---
EXAMINATION: Chest 1 view HISTORY: Pneumonia COMPARISON: 03/29/2022 FINDINGS: Heart size and pulmonary vasculature are stable. Stable low lung volumes with patchy interstitial opacities throughout both lungs. Stable airspace opacities in the lung bases. No pneumothorax. Right-sided Wocw-A-Fwlcmcmf is unchanged. The osseous structures are intact. IMPRESSION: 1. Stable interstitial and airspace opacities compared to 03/29/2022. Dictated by: Dictated on workstation # [id number]
[2022-03-30] MEDS ORDERED: IMMU50VI2 IV ×2 (09:40)
[2022-03-30] MEDS ORDERED: CHOL200025 PO (09:40)
[2022-03-30] MEDS ORDERED: CEFD300C3 PO (10:08)
[2022-03-30] MEDS ORDERED: ALBU2.5V4 INH (10:10)
[2022-03-30] MEDS ORDERED: AZIT250T PO (10:10)
[2022-03-30] MEDS ORDERED: METH4TAB10 PO (10:10)
[2022-03-30] MEDS: UMECLIDINIUM BROMIDE (INCRUSE ELLIPTA) 7'S IH SCH (10:28)
[2022-03-30] MEDS: RT--FLUTICASONE/SALMETEROL 232-14 (AIRDUO RespiCLICK) IH SCH ×2 (10:28→20:22)
[2022-03-30 12:00] VITALS: BP 130/58
[2022-03-30] MEDS: ACETAMINOPHEN 325 MG TABLET PO PRN ×2 (12:21→20:17)
[2022-03-30 16:01] VITALS: BP 147/72
[2022-03-30 19:34] VITALS: BP 131/67
[2022-03-30] MEDS: LORATADINE (CLARITIN) 10 MG TAB PO SCH (20:13)
[2022-03-30] MEDS: MONTELUKAST 10 MG (SINGULAIR) TAB PO SCH (20:13)
[2022-03-30] MEDS: AZATHIOPRINE 50 MG TABLET PO SCH (20:13)
[2022-03-31] VITALS: BP 100/52
[2022-03-31] MEDS: RT-ALBUTEROL/IPRATROPIUM 3 ML (DUONEB) VIAL INH SCH ×2 (02:13→06:47)
[2022-03-31 04:00] VITALS: BP 115/65
[2022-03-31] MEDS: methylPREDNISolone 40 MG/ML (Solu-MEDROL) VIAL IV SCH ×2 (05:28→12:56)
[2022-03-31] MEDS: AZITHROMYCIN 250 MG TAB (ZITHROMAX) PO SCH (05:28)
[2022-03-31] MEDS: cefTRIAXone 1 GM/50 ML (PRE-MIX) IV SCH (05:29)
[2022-03-31 05:32] LABS: BASOPHILS % (AUTO) 0 % (0-10); EOSINOPHILS % (AUTO) 0 % (0-10)
[2022-03-31 05:34] LABS: HEMATOCRIT 35 % (35-52); HEMOGLOBIN 11.9 g/dL (11.5-16.0); LYMPHOCYTES # (AUTO) 0.1 10^3/uL (1.0-4.0); LYMPHOCYTES % (AUTO) 4 % (12-44); MEAN CORPUSCULAR HEMOGLOBIN 34 pg (25-34); MEAN CORPUSCULAR HGB CONC 34 g/dL (32-36); MEAN CORPUSCULAR VOLUME 101 fL (80-99); MONOCYTES # (AUTO) 0.2 10^3/uL (0.0-1.0); MONOCYTES % (AUTO) 5 % (0-12); NEUTROPHILS # (AUTO) 2.7 10^3/uL (1.8-7.8); NEUTROPHILS % (AUTO) 90 % (42-75); PLATELET COUNT 44 10^3/uL (130-400)
[2022-03-31] MEDS: RT--FLUTICASONE/SALMETEROL 232-14 (AIRDUO RespiCLICK) IH SCH (06:47)
[2022-03-31] MEDS: UMECLIDINIUM BROMIDE (INCRUSE ELLIPTA) 7'S IH SCH (06:47)
[2022-03-31 08:00] VITALS: BP 134/71
--- NOTE | 2022-03-31 08:01 | Progress Note ---
MYKE MARMOLEJO 03/31/22 0800: Subjective Date Seen by a Provider: Mar 31, 2022 Time Seen by a Provider: 07:58 Subjective/Events-last exam Pt is awake and alert this morning. Pt states that they feel they are breathing a little easier and that their chest pain on inspiration has been improving Review of Systems HEENT: No Head Aches Cardiovascular: No: Chest Pain, Palpitations Gastrointestinal: No: Nausea, Vomiting, Abdominal Pain Genitourinary: No Dysuria, No Frequency, No Hematuria Neurological: No: Weakness, Numbness, Confusion Objective Exam Last Set of Vital Signs Vital Signs Date Time Temp Pulse Resp B/P (MAP) Pulse Ox O2 Delivery O2 Flow Rate FiO2 03/31/22 06:49 96 Room Air 03/31/22 04:00 36.0 93 18 115/65 (82) 1.50 Capillary Refill : Less Than 3 Seconds I&O Intake and Output 03/31/22 00:00 Intake Total 3620 ml Balance 3620 ml Intake Oral 3020 ml IV Total 600 ml # Voids 11 # Bowel Movements 2 Results Lab Laboratory Tests 03/31/22 05:23: White Blood Count 3.0L, Red Blood Count 3.48L, Hemoglobin 11.9, Hematocrit 35, Mean Corpuscular Volume 101H, Mean Corpuscular Hemoglobin 34, Mean Corpuscular Hemoglobin Concent 34, Red Cell Distribution Width 15.2H, Platelet Count 44L, Mean Platelet Volume 14.0H, Immature Granulocyte % (Auto) 1, Neutrophils (%) (Auto) 90H, Lymphocytes (%) (Auto) 4L, Monocytes (%) (Auto) 5, Eosinophils (%) (Auto) 0, Basophils (%) (Auto) 0, Neutrophils # (Auto) 2.7, Lymphocytes # (Auto) 0.1L, Monocytes # (Auto) 0.2, Eosinophils # (Auto) 0.0, Basophils # (Auto) 0.0, Immature Granulocyte # (Auto) 0.0, Percent Immature Platelet Fraction 19.8H Microbiology 03/29/22 Gram Stain - Final, Resulted 03/29/22 Sputum Culture - Preliminary, Resulted Usual upper respiratory ashley 03/29/22 Blood Culture - Preliminary, Resulted Citrobacter freundii complex Assessment/Plan Assessment/Plan Assess & Plan/Chief Complaint 1. Acute Respiratory Failure--continue oxygen 2. Bacteremia-- gram negative bacillus, sent to [facility] for further studies, continue rocephin/zithromax 3. Acute Pneumonia--on rocephin/zithromax 4. Asthma--continue breo and spiriva, SVNS with duoneb q4hrs prn, continue solumedrol 5. SCID--discussed with Dr. Antonio and she will follow up with her as scheduled this week 6. Thrombocytopenia--chronic, generally runs between 45-60,000, improving with steroids continue to monitor 7. MYLA--resume home CPAP WANDY CARL DO 03/31/22 1303: Supervisory-Addendum Brief Verification & Attestation Participated in pt care: history, physical Personally performed: exam, supervision of care Care discussed with: Medical Student Procedures: n/a Results interpretation: Verified all documentation Patient seen and evaluated. Has been doing IS and acapella. Feels much better and wants to go home. Platelets up to 43,000. Will do home O2 qualifier and see if she need oxygen for DC. Her picked up her antibiotics, steroids and albuterol for her nebulizer yesterday. See DC summary. MYKE MARMOLEJO Mar 31, 2022 08:00 WANDY CARL DO Mar 31, 2022 13:03
[2022-03-31] MEDS: buPROPion SR 150 MG (WELLBUTRIN SR) TAB PO SCH (08:21)
[2022-03-31 12:00] VITALS: BP 136/63
--- NOTE | 2022-03-31 13:12 | Discharge Summary ---
Diagnosis/Chief Complaint Date of Admission Mar 29, 2022 at 03:20 Date of Discharge Discharge Date: Mar 31, 2022 Discharge Diagnosis 1. Acute Respiratory Failure/Hypoxia--home on oxygen with exertion 2. Acute Pneumonia--improved, home on cefdinir/zithromax 3. Asthma--home on breo and spiriva, SVNs with albuterol and 4. SCID--discussed with Dr. Antonio and she will follow up with her as scheduled this week 5. Thrombocytopenia--chronic, platelets up to 43,000 6. MYLA--continue home CPAP Reason Hospital Visit This is a 41 year old female with a history of Common Variable Immunodeficiency, thrombocytopenia, crohn's, asthma, and chronic sinusitis who presented to the emergency room with cough, shortness of breath and wheezing. She was found to be hypoxic with an oxygen saturation of 77%. She had to be placed on oxygen at 3L NC. She will be admitted for acute respiratory failure with probable early pneumonia. Discharge Summary Hospital Course Was the Problem List Reviewed?: Yes Hospital Course This is a 41 year old female with a history of Common Variable Immunodeficiency, thrombocytopenia, crohn's, asthma, and chronic sinusitis who presented to the emergency room with cough, shortness of breath and wheezing. She was found to be hypoxic with an oxygen saturation of 77%. She had to be placed on oxygen at 3L NC. She was admitted to the medical floor for acute respiratory failure with probable early pneumonia. She was on oxygen at 3L NC until discharge at which time she was on room air at rest and requiring 2L of oxygen with exertion. She was treated with rocephin and zithromax for pneumonia. She was start on IV solumedrol for asthma and continued on her home inhalers and nebulizers with duoneb. Her platelets were 35,000 on admit and are up to 43,000 on discharge. Her platelets generally run 45,000 to 60,000. I did discuss her case with Dr. Amaya and the patient has a follow up with Dr. Amaya tomorrow so she will keep that. Her IVIG dose was decreased a few months ago due to hives. She has been up to the chair and started on IS and acapella. She will be discharged to home on oxygen at 2L NC with exertion, cefdinir/zithromax, medrol dose pack and use her nebulizer with albuterol at least every 4hrs. She will see Dr. Amaya tomorrow and me in 1 week. Labs Laboratory Tests 03/29/22 02:15: 03/29/22 02:24: Mean Corpuscular Volume 101H, Red Cell Distribution Width 14.9H, Platelet Count 49L, Mean Platelet Volume 13.2H, Neutrophils (%) (Auto) 87H, Lymphocytes (%) (Auto) 4L, Lymphocytes # (Auto) 0.2L, Percent Immature Platelet Fraction 17.0H, Prothrombin Time 16.8H, Activated Partial Thromboplast Time 39H, Carbon Dioxide Level 20L, Blood Urea Nitrogen 6L, Glucose Level 137H, Magnesium Level 1.5L, Total Bilirubin 2.1H, C-Reactive Protein High Sensitivity 14.60H 03/29/22 02:34: Bedside Blood Gas pCO2 (LAB) 36.3L, Bedside Blood Gas pO2 (LAB) 78L, Bedside B lood Gas HCO3 (LAB) 19.7L, POC Blood Gas Total CO2 Calc 21L, Bedside Arterial Blood Base Excess -6L 03/29/22 06:47: Red Cell Distribution Width 14.7H, Platelet Count 35*L, Mean Platelet Volume 12.7H, Neutrophils (%) (Auto) 93H, Lymphocytes (%) (Auto) 2L, Lymphocytes # (Auto) 0.1L, Percent Immature Platelet Fraction 16.2H, Carbon Dioxide Level 17L, Blood Urea Nitrogen 6L, Glucose Level 137H, Red Blood Count 3.63L 03/30/22 05:15: White Blood Count 3.8L, Red Blood Count 3.48L, Mean Corpuscular Volume 101H, Mean Corpuscular Hemoglobin 35H, Red Cell Distribution Width 15.1H, Platelet Count 38*L, Mean Platelet Volume 14.5H, Percent Immature Platelet Fraction 21.7H , Carbon Dioxide Level 19L, Glucose Level 159H 03/31/22 05:23: White Blood Count 3.0L, Red Blood Count 3.48L, Mean Corpuscular Volume 101H, Red Cell Distribution Width 15.2H, Platelet Count 44L, Mean Platelet Volume 14.0H, Percent Immature Platelet Fraction 19.8H, Neutrophils (%) (Auto) 90H, Lymphocytes (%) (Auto) 4L, Lymphocytes # (Auto) 0.1L Procedures None. Discharge Physical Examination Allergies: Coded Allergies: IgA less than or equal to 50 mcg/mL (Verified Allergy, Intermediate, RASH ON FACE, 02/01/19) glucose (Verified Allergy, Intermediate, RASH ON FACE, 02/01/19) glycine (Verified Allergy, Intermediate, RASH ON FACE, 02/01/19) immune globulin,alpha (IgA) greater than 50 mcg/mL (Verified Allergy, Unknown, 02/01/19) immune globulin,gamma (IgG) human (Verified Allergy, Unknown, 02/01/19) maltose (Verified Allergy, Unknown, 02/01/19) Uncoded Allergies: GAMMAGARD (Allergy, Intermediate, RASH ON FACE, 02/01/19) Vitals & I&Os Vital Signs Date Time Temp Pulse Resp B/P (MAP) Pulse Ox O2 Delivery O2 Flow Rate FiO2 03/31/22 12:00 36.8 90 18 136/63 (87) 94 Room Air 03/31/22 04:00 1.50 General Appearance: Alert, Oriented X3 Respiratory: Clear to Auscultation Cardiovascular: Regular Rate Extremities: No Clubbing, No Cyanosis, No Edema Psych/Mental Status: Mental Status NL Discharge Home Medications Reviewed and agree with Discharge Medication list on patient's Discharge Instruction sheet Instructions to Patient/Family Please see electronic discharge instructions given to patient. WANDY CARL DO Mar 31, 2022 13:12
--- NOTE | 2022-03-31 17:49 | Physician Query Clarification ---
Physician Query-General Query to Physician: The medical record reflects the following clinical scenario: History/Risk factors: Common Variable Immunodeficiency, Pneumonia Clinical Findings: Admission VS/LABS: HR 96, RR 32, BP 151/75, SpO2 77% sat on room air T 36.8, WBC 6.2, Decreased to 3.0, Platelets 49 decreased to 35, Blood cultures x 2 positive for Citrobacter freundii complex, Treatment: Solu-Medrol IV, albuterol, ceftriaxone IV, azithromycin IV, 2L LR Question: Is Sepsis a clinically valid diagnosis? Sepsis was documented in the progress note on 03/30/2022 with no further documentation of Sepsis in the medical record. If yes, please document in the Progress Notes and Discharge Summary. 1. Yes, Sepsis is clinically valid and present on admission, condition now resolved 2. No, Sepsis was ruled out 3. Other, with explanation of clinical findings 4. Undetermined, no explanation for clinical findings In responding to this query, please exercise your independent professional judgment. The purpose of this communication is to more accurately reflect the complexity of your patients condition. The fact that a question is asked does not imply that any particular answer is desired or expected. Thank you for your timely response to this clarification. Leta Lutz MSN, RN Clinical Passenger [employer] PHYSICIAN RESPONSE: Based on the clinical findings in the record, please respond to the query above on this document as an addendum. Physician Response: Physician Response 1 If you have questions please contact: School Cook: Ext: Thank you for your time and cooperation. Clinical Passenger Brakeman/School Cook This is a permanent part of the medical record LETA LUTZ Mar 31, 2022 17:49 WANDY CARL DO Apr 02, 2022 09:49
[2022-03-31] MEDS ORDERED: PANTOPRAZOLE 40 MG (PROTONIX) TAB PO SCH (21:00)
== END 2022-03-31 13:51 | disposition home or self-care (01) | DRG 871 ==
LOC: EDUNIT# 01:46 → ER 01:49 → 4TH 03:20
PROVIDERS: ADMIT Family Medicine; ATTEND Family Medicine
PROC: 5A09357 Assistance with Respiratory Ventilation, Less than 24 Consecutive Hours, Continuous Positive Airway Pressure (ICD-10-PCS; principal; 2022-03-29)
DX: A41.59 Other Gram-negative sepsis (principal); J18.9 Pneumonia, unspecified organism; J96.21 Acute and chronic respiratory failure with hypoxia; K50.90 Crohn's disease, unspecified, without complications; D81.9 Combined immunodeficiency, unspecified; Z20.822 Contact with and (suspected) exposure to COVID-19; K21.9 Gastro-esophageal reflux disease without esophagitis; M06.9 Rheumatoid arthritis, unspecified; F41.9 Anxiety disorder, unspecified; F32.A Depression, unspecified; J45.909 Unspecified asthma, uncomplicated; G47.33 Obstructive sleep apnea (adult) (pediatric); D69.6 Thrombocytopenia, unspecified
CPT/HCPCS: 36415; 71045; 80048; 80053; 82805; 83735; 83874; 84484; 84703; 85007; 85025; 85027; 85610; 85730; 86141; 87040; 87070; 87077; 87186; 87205; 87636; 93005; 93041; 94640; 94760; 94761; 96365; 96375

== ENCOUNTER 2022-04-01 08:44 | Outpatient (RCR) | payer BC ==
[2022-03-19 09:50] LABS: BASOPHILS % (AUTO) 0 % (0-10); HEMATOCRIT 37 % (35-52); MEAN CORPUSCULAR VOLUME 100 fL (80-99); MONOCYTES # (AUTO) 0.5 10^3/uL (0.0-1.0)
[2022-03-19 09:52] LABS: EOSINOPHILS # (AUTO) 0.1 10^3/uL (0.0-0.3); EOSINOPHILS % (AUTO) 3 % (0-10); HEMOGLOBIN 12.5 g/dL (11.5-16.0); LYMPHOCYTES # (AUTO) 0.6 10^3/uL (1.0-4.0); LYMPHOCYTES % (AUTO) 17 % (12-44); MEAN CORPUSCULAR HEMOGLOBIN 34 pg (25-34); MEAN CORPUSCULAR HGB CONC 34 g/dL (32-36); MEAN PLATELET VOLUME 13.2 fL (9.0-12.2); MONOCYTES % (AUTO) 14 % (0-12); NEUTROPHILS # (AUTO) 2.3 10^3/uL (1.8-7.8); NEUTROPHILS % (AUTO) 66 % (42-75); PLATELET COUNT 42 10^3/uL (130-400); WHITE BLOOD COUNT 3.4 10^3/uL (4.3-11.0)
[2022-03-19 10:08] LABS: ALBUMIN 3.8 GM/DL (3.2-4.5); BILIRUBIN,TOTAL 1.1 MG/DL (0.1-1.0); CALCIUM 9.1 MG/DL (8.5-10.1); CREATININE SERUM 0.79 MG/DL (0.60-1.30); POTASSIUM 3.8 MMOL/L (3.6-5.0)
[2022-03-19 10:31] LABS: SMEAR SCAN COMMENT YES
[~2022-04-01 08:44] MED LIST changes: +ACETAMINOPHEN 325 MG TABLET PO PRN; +ALBU2.5V4 INH; +AZIT250T PO; +CEFD300C3 PO; +CHOL200025 PO; +HEParin (CENTRAL IV FLUSH) 500 UNIT/5 ML SYR IV PRN; +IMMU50VI2 IV; +IVIG 10 GM (PRIVIGEN) 100 ML IV SCH; +IVIG 20 GM (PRIVIGEN) 200 ML IV SCH; +LORA-1025 PO; +METH4TAB10 PO; +PANT40TA52 PO; +SULF-11 PO; +diphenhydrAMINE 25 MG TAB (BENADRYL) PO SCH; +diphenhydrAMINE 50 MG/ML INJ (BENADRYL) IV PRN
[2022-04-01] MEDS ORDERED: ALTEPLASE 2 MG (CATHFLO) IV ONE (09:00)
== END 2022-04-14 | disposition home or self-care (01) ==
LOC: ONC 08:44
PROVIDERS: ATTEND Internal Medicine Hematology & Oncology
DX: Z51.12 Encounter for antineoplastic immunotherapy (principal); D80.1 Nonfamilial hypogammaglobulinemia; D69.6 Thrombocytopenia, unspecified; K50.90 Crohn's disease, unspecified, without complications; J45.909 Unspecified asthma, uncomplicated; E66.01 Morbid (severe) obesity due to excess calories; R94.5 Abnormal results of liver function studies
CPT/HCPCS: 36415; 36593; 80053; 82784; 85025; 96365; 96366; 96375; 96523

== ENCOUNTER 2022-04-29 08:50 | Outpatient (RCR) | payer BC | END 2022-05-14 | disposition home or self-care (01) | LOC: ONC 08:50 | PROVIDERS: ATTEND Internal Medicine Hematology & Oncology | DX: Z51.11 Encounter for antineoplastic chemotherapy (principal); Z45.2 Encounter for adjustment and management of vascular access device; D80.1 Nonfamilial hypogammaglobulinemia; D69.6 Thrombocytopenia, unspecified; K50.90 Crohn's disease, unspecified, without complications; J45.909 Unspecified asthma, uncomplicated; E66.01 Morbid (severe) obesity due to excess calories; R94.5 Abnormal results of liver function studies | CPT/HCPCS: 96365; 96366; 96523 ==

== ENCOUNTER 2022-05-24 08:55 | Outpatient (RCR) | payer BC ==
[~2022-05-24 08:55] MED LIST changes: +ALBU8.5H6 IH; -RT-ALBUINH IH
[2022-05-24 10:16] LABS: BASOPHILS % (AUTO) 0 % (0-10); LYMPHOCYTES % (AUTO) 15 % (12-44)
[2022-05-24 10:17] LABS: EOSINOPHILS # (AUTO) 0.1 10^3/uL (0.0-0.3); EOSINOPHILS % (AUTO) 3 % (0-10); HEMATOCRIT 36 % (35-52); HEMOGLOBIN 12.2 g/dL (11.5-16.0); LYMPHOCYTES # (AUTO) 0.5 10^3/uL (1.0-4.0); MEAN CORPUSCULAR HEMOGLOBIN 34 pg (25-34); MEAN CORPUSCULAR HGB CONC 34 g/dL (32-36); MEAN CORPUSCULAR VOLUME 100 fL (80-99); MEAN PLATELET VOLUME 11.1 fL (9.0-12.2); MONOCYTES # (AUTO) 0.5 10^3/uL (0.0-1.0); MONOCYTES % (AUTO) 15 % (0-12); NEUTROPHILS # (AUTO) 2.1 10^3/uL (1.8-7.8); NEUTROPHILS % (AUTO) 67 % (42-75); PLATELET COUNT 42 10^3/uL (130-400); WHITE BLOOD COUNT 3.2 10^3/uL (4.3-11.0)
[2022-05-24 10:32] LABS: ALBUMIN 3.8 GM/DL (3.2-4.5); BILIRUBIN,TOTAL 0.8 MG/DL (0.1-1.0); CALCIUM 9.1 MG/DL (8.5-10.1); CREATININE SERUM 0.84 MG/DL (0.60-1.30); POTASSIUM 3.9 MMOL/L (3.6-5.0); TOTAL PROTEIN 6.1 GM/DL (6.4-8.2)
== END 2022-06-14 | disposition home or self-care (01) ==
LOC: ONC 08:55
PROVIDERS: ATTEND Internal Medicine Hematology & Oncology
DX: Z51.12 Encounter for antineoplastic immunotherapy (principal); Z45.2 Encounter for adjustment and management of vascular access device; D80.1 Nonfamilial hypogammaglobulinemia; D69.6 Thrombocytopenia, unspecified; K50.90 Crohn's disease, unspecified, without complications; J45.909 Unspecified asthma, uncomplicated; E66.01 Morbid (severe) obesity due to excess calories; R94.5 Abnormal results of liver function studies
CPT/HCPCS: 80053; 82784 ×3; 85025; 96365; 96366; 96523; G0463

== ENCOUNTER 2022-06-21 08:53 | Outpatient (RCR) | payer BC | END 2022-07-14 | disposition home or self-care (01) | LOC: ONC 08:53 | PROVIDERS: ATTEND Internal Medicine Hematology & Oncology | DX: Z51.12 Encounter for antineoplastic immunotherapy (principal); Z45.2 Encounter for adjustment and management of vascular access device; D80.1 Nonfamilial hypogammaglobulinemia; D69.6 Thrombocytopenia, unspecified; K50.90 Crohn's disease, unspecified, without complications; J45.909 Unspecified asthma, uncomplicated; E66.01 Morbid (severe) obesity due to excess calories; R94.5 Abnormal results of liver function studies | CPT/HCPCS: 96365; 96366; 96523 ==

== ENCOUNTER 2022-07-19 08:53 | Outpatient (RCR) | payer BC | END 2022-08-14 | disposition home or self-care (01) | LOC: ONC 08:53 | PROVIDERS: ATTEND Internal Medicine Hematology & Oncology | DX: Z51.12 Encounter for antineoplastic immunotherapy (principal); Z45.2 Encounter for adjustment and management of vascular access device; D80.1 Nonfamilial hypogammaglobulinemia; D69.6 Thrombocytopenia, unspecified; K50.90 Crohn's disease, unspecified, without complications; J45.909 Unspecified asthma, uncomplicated; E66.01 Morbid (severe) obesity due to excess calories; R94.5 Abnormal results of liver function studies | CPT/HCPCS: 96365; 96366; 96375; 96523 ==

== ENCOUNTER 2022-08-18 09:07 | Outpatient (RCR) | payer BC ==
[2022-08-18 09:39] LABS: BASOPHILS % (AUTO) 0 % (0-10); HEMOGLOBIN 10.4 g/dL (11.5-16.0)
[2022-08-18 09:41] LABS: EOSINOPHILS % (AUTO) 2 % (0-10); HEMATOCRIT 32 % (35-52); LYMPHOCYTES # (AUTO) 0.5 10^3/uL (1.0-4.0); LYMPHOCYTES % (AUTO) 19 % (12-44); MEAN CORPUSCULAR HEMOGLOBIN 32 pg (25-34); MEAN CORPUSCULAR HGB CONC 33 g/dL (32-36); MEAN CORPUSCULAR VOLUME 97 fL (80-99); MONOCYTES # (AUTO) 0.3 10^3/uL (0.0-1.0); MONOCYTES % (AUTO) 10 % (0-12); NEUTROPHILS # (AUTO) 1.7 10^3/uL (1.8-7.8); NEUTROPHILS % (AUTO) 69 % (42-75); WHITE BLOOD COUNT 2.5 10^3/uL (4.3-11.0)
[2022-08-18 09:43] LABS: PLATELET COUNT 38 10^3/uL (130-400)
[2022-08-18 09:58] LABS: ALBUMIN 3.8 GM/DL (3.2-4.5); BILIRUBIN,TOTAL 0.9 MG/DL (0.1-1.0); CALCIUM 8.8 MG/DL (8.5-10.1); CREATININE SERUM 0.93 MG/DL (0.60-1.30); POTASSIUM 3.5 MMOL/L (3.6-5.0)
[2022-08-18 11:48] LABS: RETICULOCYTE % 1.15 % (0.50-2.40)
== END 2022-09-09 15:21 | disposition home or self-care (01) ==
LOC: ONC 09:07
PROVIDERS: ATTEND Internal Medicine Hematology & Oncology
DX: Z51.12 Encounter for antineoplastic immunotherapy (principal); Z45.2 Encounter for adjustment and management of vascular access device; D80.1 Nonfamilial hypogammaglobulinemia; D69.6 Thrombocytopenia, unspecified; K50.90 Crohn's disease, unspecified, without complications; J45.909 Unspecified asthma, uncomplicated; E66.01 Morbid (severe) obesity due to excess calories; R94.5 Abnormal results of liver function studies
CPT/HCPCS: 80053; 82607; 82728; 82746; 82784 ×3; 83540; 83550; 83615; 85025; 85045; 96365; 96366; G0463; 36591

== ENCOUNTER 2022-09-16 08:16 | Outpatient (RCR) | payer BC ==
[2022-09-16 08:36] LABS: NEUTROPHILS # (AUTO) 1.4 10^3/uL (1.8-7.8)
[2022-09-16 08:38] LABS: BASOPHILS % (AUTO) 0 % (0-10); EOSINOPHILS % (AUTO) 1 % (0-10); HEMATOCRIT 31 % (35-52); HEMOGLOBIN 9.9 g/dL (11.5-16.0); LYMPHOCYTES # (AUTO) 0.5 10^3/uL (1.0-4.0); LYMPHOCYTES % (AUTO) 21 % (12-44); MEAN CORPUSCULAR HEMOGLOBIN 31 pg (25-34); MEAN CORPUSCULAR HGB CONC 32 g/dL (32-36); MEAN CORPUSCULAR VOLUME 96 fL (80-99); MONOCYTES # (AUTO) 0.4 10^3/uL (0.0-1.0); MONOCYTES % (AUTO) 17 % (0-12); NEUTROPHILS % (AUTO) 61 % (42-75); WHITE BLOOD COUNT 2.4 10^3/uL (4.3-11.0)
[2022-09-16 08:43] LABS: PLATELET COUNT 42 10^3/uL (130-400)
[2022-09-16 08:56] LABS: ALBUMIN 3.7 GM/DL (3.2-4.5); BILIRUBIN,TOTAL 0.6 MG/DL (0.1-1.0); CREATININE SERUM 0.89 MG/DL (0.60-1.30); POTASSIUM 3.1 MMOL/L (3.6-5.0); TOTAL PROTEIN 6.1 GM/DL (6.4-8.2)
== END 2022-10-12 | disposition home or self-care (01) ==
LOC: ONC 08:16
PROVIDERS: ATTEND Internal Medicine Hematology & Oncology
DX: Z45.2 Encounter for adjustment and management of vascular access device (principal); D84.9 Immunodeficiency, unspecified; E66.01 Morbid (severe) obesity due to excess calories
CPT/HCPCS: 36591; 80053; 85025; 96365; 96366

== ENCOUNTER → 2022-10-25 | Outpatient (CLI) | payer BC ==
[2022-10-25] VITALS (8 sets, daily range): BP systolic 116–139; BP diastolic 59–86
[~2022-10-25] VITALS: Wt 127.0 kg
[~2022-10-25] MED LIST changes: -ACETAMINOPHEN 325 MG TABLET PO PRN; -HEParin (CENTRAL IV FLUSH) 500 UNIT/5 ML SYR IV PRN; -IVIG 10 GM (PRIVIGEN) 100 ML IV SCH; -IVIG 20 GM (PRIVIGEN) 200 ML IV SCH; +LIDOCAINE 1% INJ 30 ML (XYLOCAINE) VIAL INJ ONE; +MIDAZOLAM 2 MG/2 ML (VERSED) VIAL IVP ONE; +NS IV 1000 ML 1,000 ML IV STA; -diphenhydrAMINE 25 MG TAB (BENADRYL) PO SCH; -diphenhydrAMINE 50 MG/ML INJ (BENADRYL) IV PRN; +fentaNYL INJ 100 MCG/2 ML AMP IVP ONE
[2022-10-25 11:30] LABS: EOSINOPHILS # (AUTO) 0.1 10^3/uL (0.0-0.3); HEMATOCRIT 32 % (35-52)
[2022-10-25 11:32] LABS: ABSOLUTE RETIC # 36 10e9/uL (24-90); BASOPHILS % (AUTO) 0 % (0-10); EOSINOPHILS % (AUTO) 3 % (0-10); HEMOGLOBIN 10.1 g/dL (11.5-16.0); LYMPHOCYTES # (AUTO) 0.5 10^3/uL (1.0-4.0); LYMPHOCYTES % (AUTO) 19 % (12-44); MEAN CORPUSCULAR HEMOGLOBIN 29 pg (25-34); MEAN CORPUSCULAR HGB CONC 31 g/dL (32-36); MEAN CORPUSCULAR VOLUME 94 fL (80-99); MONOCYTES # (AUTO) 0.3 10^3/uL (0.0-1.0); MONOCYTES % (AUTO) 11 % (0-12); NEUTROPHILS # (AUTO) 1.9 10^3/uL (1.8-7.8); NEUTROPHILS % (AUTO) 67 % (42-75); PLATELET COUNT 63 10^3/uL (130-400); RETICULOCYTE % 1.05 % (0.50-2.40); WHITE BLOOD COUNT 2.8 10^3/uL (4.3-11.0)
[2022-10-25 12:15] LABS: ANISOCYTOSIS SLIGHT; BAND NEUTROPHILS 3 %; BASOPHILS % (MANUAL) 0 %; ELLIPT/OVALOCYTES SLIGHT; EOSINOPHILS % (MANUAL) 0 %; LYMPHOCYTES % (MANUAL) 22 %; MONOCYTES % (MANUAL) 9 %; NEUTROPHILS % (MANUAL) 66 %; TEAR DROP CELLS SLIGHT
[2022-10-25 12:19] LABS: INR 1.2 (0.8-1.4); PROTHROMBIN TIME PATIENT 15.4 SEC (12.2-14.7)
--- NOTE | 2022-10-25 13:42 | Pre-Op Note & Conscious Sedat ---
Pre-Operative Progress Note Date of Available H&P: Oct 25, 2022 Date H&P Reviewed: Oct 25, 2022 Time H&P Reviewed: 12:00 Pre-Op Diagnosis: D61.89 Conscious Sedation Pre-Proced Time 12:00 ASA Score 2 For ASA 3 and 4: Consider anesthesia and medical clearance. Also, for patients with a history of failed moderate sedation consider anesthesia. Airway Lungs Heart ASA score ASA 1: a normal healthy patient ASA 2: a patient with a mild systemic disease (mid diabetes, controlled hypertension, obesity ASA 3: a patient with a severe systemic disease that limits activity (angina, COPD, prior Myocardial infarction) ASA 4: a patient with an incapacitating disease that is a constant threat to life (CHF, renal failure) ASA 5: a moribund patient not expected to survive 24 hrs. (ruptured aneurysm) ASA 6: a declared brain- patient whose organs are being harvested. For emergent operations, add the letter E after the classification Mallampati Classification Grade 2 Sedation Plan Analgesia, Amnesia, Plan communicated to team members, Discussed options with patient/fam, Discussed risks with patient/fam The patient is an appropriate candidate to undergo the planned procedure, sedation, and anesthesia. The patient immediately re-assessed prior to indication. SARAH FLOOD MD Oct 25, 2022 13:42
--- NOTE | 2022-10-25 14:02 | Diagnostic Imaging Report ---
INDICATION: D61.89. Patient presents for CT-guided bone marrow aspiration and biopsy. Patient brought to the CT suite and placed on the table in the prone position. Axial imaging through the pelvis was performed to evaluate appropriate entry site. Procedure was performed utilizing conscious sedation with radiology nursing and constant patient monitoring. Patient was given a total of 100 mcg of fentanyl intravenously and 1 mg of Versed intravenously. Total procedure time was approximately 8 minutes. Bone marrow biopsy needle was advanced and placed with its tip along the posterior cortex of the right iliac bone. Needle was advanced through the cortex into the marrow utilizing the bone marrow drill. 2 bone marrow aspirates were then obtained. Next, the drill was utilized to obtain a bone marrow core biopsy. The needle was removed and hemostasis was obtained. Patient tolerated the procedure well and left the department in stable condition. IMPRESSION: Successful CT-guided bone marrow aspiration and core biopsy, utilizing conscious sedation. Pathology results are currently pending. Dictated by: Dictated on workstation # [id number]
== END ==
LOC: SDC 11:02
PROVIDERS: ATTEND Internal Medicine Hematology & Oncology
DX: D61.89 Other specified aplastic anemias and other bone marrow failure syndromes (principal)
CPT/HCPCS: 36415; 38222; 77012; 85007; 85027; 85045; 85055; 85610; 85730; 99156

== ENCOUNTER → 2022-11-10 | Outpatient (CLI) | payer BC ==
[~2022-11-10] MED LIST changes: -LIDOCAINE 1% INJ 30 ML (XYLOCAINE) VIAL INJ ONE; -MIDAZOLAM 2 MG/2 ML (VERSED) VIAL IVP ONE; -NS IV 1000 ML 1,000 ML IV STA; -fentaNYL INJ 100 MCG/2 ML AMP IVP ONE
--- NOTE | 2022-11-10 12:40 | Diagnostic Imaging Report ---
HISTORY: Fever, shortness of breath TECHNIQUE: 2 views of the chest COMPARISON: 03/30/2022 FINDINGS: Lung volumes are normal. There are mild central predominant interstitial opacities in the lungs bilaterally. There is a small left pleural effusion. There is no pneumothorax. The right Port-A-Cath tip is in the azygos vein. The cardiac silhouette is normal in size. IMPRESSION: 1. Central interstitial opacities, may represent a mild edema. 2. Small left pleural effusion. 3. The tip of the left Port-A-Cath is in the azygos vein. This appears unchanged since May 2021. Dictated by: Dictated on workstation # [id number]
== END ==
LOC: RAD 11:41
PROVIDERS: ATTEND Nurse Practitioner Family
DX: J90 Pleural effusion, not elsewhere classified (principal); Z95.828 Presence of other vascular implants and grafts
CPT/HCPCS: 71046

== ENCOUNTER 2022-11-11 08:55 | Outpatient (RCR) | payer BC ==
[2022-10-14 09:27] LABS: BASOPHILS % (AUTO) 0 % (0-10); HEMOGLOBIN 10.2 g/dL (11.5-16.0)
[2022-10-14 09:29] LABS: EOSINOPHILS # (AUTO) 0.1 10^3/uL (0.0-0.3); EOSINOPHILS % (AUTO) 3 % (0-10); HEMATOCRIT 32 % (35-52); LYMPHOCYTES # (AUTO) 0.5 10^3/uL (1.0-4.0); LYMPHOCYTES % (AUTO) 12 % (12-44); MEAN CORPUSCULAR HEMOGLOBIN 30 pg (25-34); MEAN CORPUSCULAR HGB CONC 32 g/dL (32-36); MEAN CORPUSCULAR VOLUME 93 fL (80-99); MONOCYTES # (AUTO) 0.6 10^3/uL (0.0-1.0); MONOCYTES % (AUTO) 13 % (0-12); NEUTROPHILS % (AUTO) 71 % (42-75); PLATELET COUNT 53 10^3/uL (130-400); WHITE BLOOD COUNT 4.2 10^3/uL (4.3-11.0)
[2022-10-14 09:43] LABS: ALBUMIN 3.7 GM/DL (3.2-4.5); CALCIUM 8.9 MG/DL (8.5-10.1); CREATININE SERUM 0.85 MG/DL (0.60-1.30); POTASSIUM 3.2 MMOL/L (3.6-5.0); TOTAL PROTEIN 6.2 GM/DL (6.4-8.2)
[2022-10-14 09:44] LABS: SMEAR SCAN COMMENT OCC GIANT/LARGE PLT
[~2022-11-11 08:55] MED LIST changes: +ACETAMINOPHEN 325 MG TABLET PO PRN; +HEParin (CENTRAL IV FLUSH) 500 UNIT/5 ML SYR IV PRN; +IVIG 10 GM (PRIVIGEN) 100 ML IV SCH; +IVIG 20 GM (PRIVIGEN) 200 ML IV SCH; +diphenhydrAMINE 25 MG TAB (BENADRYL) PO SCH; +diphenhydrAMINE 50 MG/ML INJ (BENADRYL) IV PRN
[2022-11-11 09:33] LABS: LYMPHOCYTES # (AUTO) 0.6 10^3/uL (1.0-4.0)
[2022-11-11 09:34] LABS: BASOPHILS % (AUTO) 0 % (0-10); EOSINOPHILS # (AUTO) 0.2 10^3/uL (0.0-0.3); EOSINOPHILS % (AUTO) 5 % (0-10); HEMATOCRIT 32 % (35-52); HEMOGLOBIN 10.2 g/dL (11.5-16.0); LYMPHOCYTES % (AUTO) 14 % (12-44); MEAN CORPUSCULAR HEMOGLOBIN 30 pg (25-34); MEAN CORPUSCULAR HGB CONC 32 g/dL (32-36); MEAN CORPUSCULAR VOLUME 93 fL (80-99); MONOCYTES # (AUTO) 0.7 10^3/uL (0.0-1.0); MONOCYTES % (AUTO) 14 % (0-12); NEUTROPHILS # (AUTO) 3.1 10^3/uL (1.8-7.8); NEUTROPHILS % (AUTO) 67 % (42-75); PLATELET COUNT 41 10^3/uL (130-400); WHITE BLOOD COUNT 4.6 10^3/uL (4.3-11.0)
[2022-11-11 09:51] LABS: ALBUMIN 3.5 GM/DL (3.2-4.5); BILIRUBIN,TOTAL 1.2 MG/DL (0.1-1.0); CALCIUM 8.8 MG/DL (8.5-10.1); CREATININE SERUM 0.79 MG/DL (0.60-1.30); POTASSIUM 3.6 MMOL/L (3.6-5.0); TOTAL PROTEIN 6.1 GM/DL (6.4-8.2)
== END 2022-11-12 | disposition home or self-care (01) ==
LOC: ONC 08:55
PROVIDERS: ATTEND Internal Medicine Hematology & Oncology
DX: Z51.12 Encounter for antineoplastic immunotherapy (principal); Z45.2 Encounter for adjustment and management of vascular access device; D80.1 Nonfamilial hypogammaglobulinemia; E66.01 Morbid (severe) obesity due to excess calories; D69.6 Thrombocytopenia, unspecified; J45.909 Unspecified asthma, uncomplicated; R94.5 Abnormal results of liver function studies; K50.90 Crohn's disease, unspecified, without complications
CPT/HCPCS: 36591; 80053; 82784; 85025; 96365; 96366

== ENCOUNTER 2022-11-13 06:26 | Emergency (ER) | payer BC ==
[~2022-11-13] VITALS: Ht 157.5 cm; Wt 124.7 kg
[~2022-11-13 06:26] MED LIST changes: -ACETAMINOPHEN 325 MG TABLET PO PRN; -HEParin (CENTRAL IV FLUSH) 500 UNIT/5 ML SYR IV PRN; -IVIG 10 GM (PRIVIGEN) 100 ML IV SCH; -IVIG 20 GM (PRIVIGEN) 200 ML IV SCH; -diphenhydrAMINE 25 MG TAB (BENADRYL) PO SCH; -diphenhydrAMINE 50 MG/ML INJ (BENADRYL) IV PRN
[2022-11-13] MEDS ORDERED: RT-ALBUTEROL HFA 8.5 GM INHALER IH STA (06:42)
[2022-11-13] MEDS ORDERED: methylPREDNISolone 125 MG (Solu-MEDROL) VIAL IVP ONE (06:45)
[2022-11-13] MEDS ORDERED: NITROGLYCERIN 2% OINT 1 GM UNIT DOSE PACKET TOP STA (06:45)
[2022-11-13 07:09] LABS: BASOPHILS % (AUTO) 0 % (0-10); EOSINOPHILS % (AUTO) 0 % (0-10)
--- NOTE | 2022-11-13 07:10 | ED General ---
General Chief Complaint: Respiratory Problems Stated Complaint: SOB Nursing Triage Note: Pt presents with c/o shortness of breath since tuesday. She states she saw her PCP on tuesday and was placed on lasix for excess fluid on lungs. Pt does have hx of asthma. Source of Information: Patient, Old Records Exam Limitations: No Limitations History of Present Illness Date Seen by Provider: Nov 13, 2022 Time Seen by Provider: 06:36 Initial Comments This 42-year-old woman with asthma, Crohn's disease, add SCID (severe combined immunodeficiency) presents to the emergency room in respiratory distress with oxygen saturations in the 60s. She has been ill since November 08. She reports fever over 101 F at home this week. She is afebrile at present. She saw Dr. STARR and was started on Lasix and potassium. An echocardiogram has been ordered and is pending. She is not aware of any heart failure in the past. She is on multiple immunosuppressive therapies because of her chronic illnesses including Humira and Imuran. She also receives IVIG therapies. Her last inf usion was 2 days ago on November 11. Dr. Paco Amaya is her film recordist. Her primary care provider is Dr. Starr. Allergies and Home Medications Allergies Coded Allergies: IgA less than or equal to 50 mcg/mL (Verified Allergy, Intermediate, RASH ON FACE, 02/01/19) glucose (Verified Allergy, Intermediate, RASH ON FACE, 02/01/19) glycine (Verified Allergy, Intermediate, RASH ON FACE, 02/01/19) immune globulin,alpha (IgA) greater than 50 mcg/mL (Verified Allergy, Unknown, 02/01/19) immune globulin,gamma (IgG) human (Verified Allergy, Unknown, 02/01/19) maltose (Verified Allergy, Unknown, 02/01/19) Uncoded Allergies: GAMMAGARD (Allergy, Intermediate, RASH ON FACE, 02/01/19) Patient Home Medication List Home Medication List Reviewed: Yes Adalimumab (Humira) 40 Mg/0.4 Ml Syringekit, 40 MG SQ EVERY 2 WEEKS, (Reported) Entered as Reported by: ALISTAIR ORELLANA on 08/02/19 1027 Albuterol Sulfate (Ventolin Hfa) 1 Puff Puff, 2 PUFF IH Q4H PRN for SHORTNESS OF BREATH, (Reported) Entered as Reported by: ASAD CARLOS on 07/25/19 1316 Albuterol Sulfate (Albuterol Sulfate) 2.5 Mg/3 Ml (0.083 %) Vial.neb, 2.5 MG INH Q4H Prescribed by: WANDY STARR on 03/30/22 1010 Azathioprine (Imuran) 50 Mg Tablet, 100 MG PO HS, (Reported) Entered as Reported by: ASAD CARLOS on 07/25/19 1249 Azithromycin (Zithromax) 250 Mg Tablet, 250 MG PO DAILY Prescribed by: WANDY STARR on 03/30/22 1010 Bupropion HCl (Bupropion Xl) 150 Mg Tab.er.24h, 150 MG PO DAILY, (Reported) Entered as Reported by: GURPREET DUFF on 06/01/21 1347 Cefdinir (Cefdinir) 300 Mg Capsule, 300 MG PO BID Prescribed by: WANDY STARR on 03/30/22 1008 Cholecalciferol (Vitamin D3) (Vitamin D3) 50 Mcg (2000 Unit) Tablet, 100 MCG PO HS, (Reported) Entered as Reported by: ANGELA MUNOZ on 03/30/22 0940 Citalopram Hydrobromide (Celexa) 40 Mg Tablet, 40 MG PO HS, (Reported) Entered as Reported by: GURPREET DUFF on 06/01/21 1347 Fluticasone/Vilanterol (Breo Ellipta 200-25 Mcg INH) 200 Mcg-25 Mcg/Dose Blst.w.dev, 1 PUFF IH DAILY, (Reported) Entered as Reported by: ASAD CARLOS on 07/25/19 1249 Immune Globulin,Gamma(IgG) (Privigen 10% Vial) 10 % Vial, 30 GM IV MONTHLY, (Reported) Entered as Reported by: ANGELA MUNOZ on 03/30/22 0940 Loratadine (Allergy Relief) 10 Mg Tablet, 10 MG PO HS, (Reported) Entered as Reported by: ABRAHAM LU on 03/29/22 1637 Methylprednisolone (Methylprednisolone Dose Pack) 4 Mg Tab.ds.pk, 4 MG PO UD Prescribed by: WANDY STARR on 03/30/22 1010 Montelukast Sodium (Montelukast Sodium) 10 Mg Tablet, 10 MG PO HS, (Reported) Entered as Reported by: ASAD CARLOS on 07/25/19 1316 Pantoprazole Sodium (Pantoprazole Sodium) 40 Mg Tablet.dr, 40 MG PO HS, (Reported) Entered as Reported by: ABRAHAM LU on 03/29/22 1632 Tiotropium [place] (Spiriva) 18 Mcg Aerp, 2 PUFF IH DAILY, (Reported) Entered as Reported by: GURPREET DUFF on 06/01/21 1347 Review of Systems Review of Systems Constitutional: see HPI EENTM: no symptoms reported Respiratory: see HPI Cardiovascular: see HPI Gastrointestinal: nausea Genitourinary: no symptoms reported : No Musculoskeletal: no symptoms reported Skin: no symptoms reported Psychiatric/Neurological: No Symptoms Reported Hematologic/Lymphatic: See HPI Immunological/Allergic: see HPI Past Ipugmdr-Zrxgkg-Trwnba Hx Immunizations Up To Date First/Initial COVID19 Vaccinat: OCTOBER 2020 Second COVID19 Vaccination Derick: NOVEMBER 2020 Third COVID19 Vaccination Date: STATES SHE HAS HAD 2 VACCINES PLUS BOOSTER Seasonal Allergies Seasonal Allergies: Yes Past Medical History Surgery/Hospitalization HX: placement of 4 ports, 2 colon resections, hernia repair Surgeries: Yes (HERNIA SURGERY, PORT X 4, TRACH, BILATERAL ANKLE SURGERY) Abdominal, Bowel Surgery, Orthopedic, Tracheostomy Respiratory: Yes Asthma, Sleep Apnea Currently Using CPAP: Yes Cardiac: No Neurological: No : No Genitourinary: No Gastrointestinal: Yes Gastroesophageal Reflux, Crohns Disease Musculoskeletal: Yes Rheumatoid Arthritis Endocrine: No HEENT: Yes (WEARS GLASSES) Hearing Impairment: Denies Cancer: No Psychosocial: Yes Anxiety, Depression Integumentary: Yes Eczema Blood Disorders: Yes (ANEMIA, Thrombocytopenia, SCID) Physical Exam-Suspected Sepsis Physical Exam Vital Signs Vital Signs - First Documented 11/13/22 06:32 Temp 36.0 Pulse 111 Resp 40 B/P (MAP) 201/110 (140) Pulse Ox 92 O2 Delivery OxyMask O2 Flow Rate 15.00 Capillary Refill : Blood Pressure Mean: 140 Height, Weight, BMI Height: '" Weight: lbs. oz. kg; 50.00 BMI Method: General Appearance: WD/WN, Moderate Distress, Obese HEENT: PERRL/EOMI, Normal ENT Inspection Neck: Normal Inspection; No JVD Respiratory: Lungs Clear, Accessory Muscle Use, Decreased Breath Sounds, Other (Tachypnea, poor air movement, slight wheezing) Cardiovascular: No Murmur, Tachycardia (Mild, regular), Other (Mild lower extremity edema) Extremity: Pedal Edema (Mild), Swelling (Mild) Neurologic/Psychiatric: Alert, Oriented x3, No Motor/Sensory Deficits, Normal Mood/Affect Skin: normal color, warm/dry Focused Exam Lactate Level 11/13/22 06:47: Lactic Acid Level 3.37*H 11/13/22 09:12: Lactic Acid Level 2.79*H 11/13/22 11:20: Lactic Acid Level 2.37*H Lactic Acid Level Progress/Results/Core Measures Suspected Sepsis SIRS Temperature: Pulse: 111 Respiratory Rate: 40 Laboratory Tests 11/13/22 06:47: White Blood Count 15.0H Blood Pressure 201 /110 Mean: 140 11/13/22 06:47: Lactic Acid Level 3.37*H 11/13/22 09:12: Lactic Acid Level 2.79*H 11/13/22 11:20: Lactic Acid Level 2.37*H Laboratory Tests 11/13/22 06:47: Creatinine 0.94, INR Comment 1.4, Platelet Count 80L, Total Bilirubin 2.2H Results/Orders Lab Results Laboratory Tests Test 11/13/22 06:47 11/13/22 09:10 11/13/22 09:12 11/13/22 10:55 Range/Units White Blood Count 15.0 H 4.3-11.0 10^3/uL Red Blood Count 3.77 L 3.80-5.11 10^6/uL Hemoglobin 11.3 L 11.5-16.0 g/dL Hematocrit 35 35-52 % Mean Corpuscular Volume 92 80-99 fL Mean Corpuscular Hemoglobin 30 25-34 pg Mean Corpuscular Hemoglobin Concent 33 32-36 g/dL Red Cell Distribution Width 17.7 H 10.0-14.5 % Platelet Count 80 L 130-400 10^3/uL Mean Platelet Volume 9.0-12.2 fL Immature Granulocyte % (Auto) 1 % Neutrophils (%) (Auto) 81 H 42-75 % Lymphocytes (%) (Auto) 4 L 12-44 % Monocytes (%) (Auto) 14 H 0-12 % Eosinophils (%) (Auto) 0 0-10 % Basophils (%) (Auto) 0 0-10 % Neutrophils # (Auto) 12.1 H 1.8-7.8 10^3/uL Lymphocytes # (Auto) 0.5 L 1.0-4.0 10^3/uL Monocytes # (Auto) 2.1 H 0.0-1.0 10^3/uL Eosinophils # (Auto) 0.0 0.0-0.3 10^3/uL Basophils # (Auto) 0.0 0.0-0.1 10^3/uL Immature Granulocyte # (Auto) 0.2 H 0.0-0.1 10^3/uL Neutrophils % (Manual) 82 % Lymphocytes % (Manual) 1 % Monocytes % (Manual) 13 % Eosinophils % (Manual) 0 % Basophils % (Manual) 0 % Band Neutrophils 2 % Reactive Lymphocytes 2 % Percent Immature Platelet Fraction 23.0 H 0.0-7.6 % Anisocytosis MODERATE Prothrombin Time 17.6 H 12.2-14.7 SEC INR Comment 1.4 0.8-1.4 Activated Partial Thromboplast Time 48 H 24-35 SEC D-Dimer 4.49 H 0.00-0.49 UG/ML Sodium Level 125 #*L 135-145 MMOL/L Potassium Level 4.3 3.6-5.0 MMOL/L Chloride Level 94 L 98-107 MMOL/L Carbon Dioxide Level 17 L 21-32 MMOL/L Anion Gap 14 5-14 MMOL/L Blood Urea Nitrogen 16 7-18 MG/DL Creatinine 0.94 0.60-1.30 MG/DL Estimat Glomerular Filtration Rate 78 BUN/Creatinine Ratio 17 Glucose Level 126 H 70-105 MG/DL Lactic Acid Level 3.37 *H 2.79 *H 0.50-2.00 MMOL/L Calcium Level 8.6 8.5-10.1 MG/DL Corrected Calcium 8.9 8.5-10.1 MG/DL Magnesium Level 1.6 1.6-2.4 MG/DL Total Bilirubin 2.2 H 0.1-1.0 MG/DL Aspartate Amino Transf (AST/SGOT) 16 5-34 U/L Alanine Aminotransferase (ALT/SGPT) 12 0-55 U/L Alkaline Phosphatase 83 40-136 U/L Myoglobin 64.7 10.0-92.0 NG/ML Troponin I < 0.028 <0.028 NG/ML C-Reactive Protein High Sensitivity 27.73 H 0.00-0.50 MG/DL B-Type Natriuretic Peptide 22.9 <100.0 PG/ML Total Protein 6.9 6.4-8.2 GM/DL Albumin 3.6 3.2-4.5 GM/DL Influenza Type A (RT-PCR) Not Detected Not Detecte Influenza Type B (RT-PCR) Not Detected Not Detecte SARS-CoV-2 RNA (RT-PCR) Detected H Not Detecte Urine Color YELLOW Urine Clarity SL CLOUDY Urine pH 6.0 5-9 Urine Specific [place] 1.020 1.016-1.022 Urine Protein 1+ H NEGATIVE Urine Glucose (UA) NEGATIVE NEGATIVE Urine Ketones NEGATIVE NEGATIVE Urine Nitrite NEGATIVE NEGATIVE Urine Bilirubin 1+ H NEGATIVE Urine Urobilinogen 1.0 < = 1.0 MG/DL Urine Leukocyte Esterase NEGATIVE NEGATIVE Urine RBC (Auto) NEGATIVE NEGATIVE Urine RBC NONE /HPF Urine WBC NONE /HPF Urine Squamous Epithelial Cells RARE /HPF Urine Crystals NONE /LPF Urine Bacteria NEGATIVE /HPF Urine Casts PRESENT /LPF Urine Hyaline Casts 2-5 H /LPF Urine Mucus NEGATIVE /LPF Urine Culture Indicated CULTURE PENDING Body Fluid Source PLEURAL Body Fluid Color YELLOW Body Fluid Appearance SLT CLDY Body Fluid WBC 1.043 10^3/uL Body Fluid RBC 0.002 10^6/uL Body Fl Polynuclear WBCs (%)(Auto) 85.1 % Body Fluid Mononuclear Cells % Auto 14.9 % Body Fluid Slide Review Yes Body Fluid Glucose 66 MG/DL Body Fluid Total Protein 3.8 G/DL Body Fluid Lactate Dehydrogenase 322 U/L Test 11/13/22 11:20 Range/Units Lactic Acid Level 2.37 *H 0.50-2.00 MMOL/L My Orders Orders - ALVARO ALMEIDA MD Cbc With Automated Diff (11/13/22 06:42) Comprehensive Metabolic Panel (11/13/22 06:42) Blood Culture (11/13/22 06:42) Sputum Culture (11/13/22 06:42) Urinalysis (11/13/22 06:42) Urine Culture (11/13/22 06:42) Protime With Inr (11/13/22 06:42) Partial Thromboplastin Time (11/13/22 06:42) Chest 1 View, Ap/Pa Only (11/13/22 06:42) Ed Iv/Invasive Line Start (11/13/22 06:42) Vital Signs Adult Sepsis Patie Q15M (11/13/22 06:42) O2 (11/13/22 06:42) Remove Rings In Anticipation O (11/13/22 06:42) Lactic Acid Analyzer (11/13/22 06:42) Magnesium (11/13/22 06:42) Ekg Tracing (11/13/22 06:42) Myoglobin Serum (11/13/22 06:42) Monitor-Rhythm Ecg Trace Only (11/13/22 06:42) Bnp Melonie (11/13/22 06:42) Fibrin Degradation Products (11/13/22 06:42) Troponin I Melonie (11/13/22 06:42) Hs C Reactive Protein (11/13/22 06:42) Covid 19 Inhouse Test (11/13/22 06:42) Influenza A And B By Pcr (11/13/22 06:42) Albuterol Inhaler (Albuterol) (11/13/22 06:42) Methylprednisolone Sod Succ (Solu-Medrol (11/13/22 06:45) Ondansetron Injection (Zofran Injectio (11/13/22 07:15) Manual Differential (11/13/22 06:47) Ct Angio Chest W (R/O Pe) (11/13/22 08:07) Meropenem (Merrem 1000 Mg) (11/13/22 08:45) Azithromycin Injection (Zithromax Inject (11/13/22 08:33) Iohexol Injection (Omnipaque 350 Mg/Ml 1 (11/13/22 08:45) Received Contrast (Hold Metformin- Contr (11/13/22 08:45) Ns (Ivpb) (Sodium Chloride 0.9% Ivpb Bag (11/13/22 08:45) Ns (Ivpb) (Sodium Chloride 0.9%) (11/13/22 08:57) Us-Nochg Guide Para/Thor (11/13/22 10:14) Body Fluid Cell Count (11/13/22 10:37) Glucose,Body Fluid (11/13/22 10:37) Total Protein,Body Fluid (11/13/22 10:37) Body Fluid Culture (11/13/22 10:37) Anaerobic Culture (11/13/22 10:37) Ldh,Body Fluid (11/13/22 10:37) Ns Iv 500 Ml (Sodium Chloride 0.9%) (11/13/22 11:15) Chest 1 View, Ap/Pa Only (11/13/22 12:48) Fungus Culture Sputum Tiss Fld (11/13/22 10:55) Medications Given in ED Current Medications Medications Dose Ordered Sig/Sangeeta Route Start Time Stop Time Status Last Admin Dose Admin Iohexol 100 ml ONCE ONCE IV 11/13/22 08:45 11/13/22 08:49 DC 11/13/22 08:49 87 ML Meropenem 1000 mg/ Sodium Chloride 100 ml @ 200 mls/hr ONCE ONCE IV 11/13/22 08:45 11/13/22 09:14 DC 11/13/22 09:00 200 MLS/HR Sodium Chloride 100 ml ONCE ONCE IV 11/13/22 08:45 11/13/22 08:49 DC 11/13/22 08:49 80 ML Sodium Chloride 500 ml @ 0 mls/hr Q0M ONCE IV 11/13/22 11:15 11/13/22 11:16 DC 11/13/22 11:20 500 MLS/HR Vital Signs/I&O 11/13/22 11/13/22 08:38 13:15 Pulse 109 88 Resp 34 20 B/P (MAP) 139/81 Pulse Ox 98 94 O2 Flow Rate 100.00 Capillary Refill : Blood Pressure Mean: 140 Progress Note #1: Time: 07:13 Progress Note Patient was interviewed and examined shortly after arrival. High flow oxygen was applied which resuscitated her oxygen into the low 90s. Air movement is fairly poor at this time. An albuterol inhaler was administered and BiPAP will be initiated. Solu-Medrol 125 mg IV was administered. Patient has had some nausea, so Zofran is being administered to protect her from vomiting while on BiPAP. Labs are pending at this time. Influenza and COVID swabs are being repeated since it has been several days since she was tested. Progress Note #2: Time: 08:25 Progress Note Patient is stable and relatively comfortable on BiPAP at this time. Labs have been reviewed in their entirety including the septic work-up, CBC, CMP, CRP, BNP, troponin, magnesium, lactic acid, and viral swabs. Patient was negative for influenza but positive for COVID-19. Pertinent findings on the CBC include leukocytosis and thrombocytopenia. Pertinent findings on the CMP include hyponatremia with a sodium of 125. CRP was markedly elevated at 27. BNP was normal. Renal function was normal. D-dimer was 4.5. Patient is going to CT scan for PE evaluation. Chest x-ray was reviewed and she has diffuse infiltrates with a near whiteout of the left lung by my interpretation. Pleural effusion is possible. I discussed the case with Dr. Gonzalez, if she has concerned that this patient may need higher level of care than what can be provided at [facility] [place] in [place]. Progress Note #3: Time: 08:[address] [facility]. She strongly recommends transfer to a tertiary care center with in-house pulmonology as patient likely needs a bronchoscopy and hands-on macerator operator care. She also has multiple comorbidities that deserve the opportunity for a full complement of specialty services. I spoke with the patient about her high risk for morbidity and mortality and need for transfer to a tertiary care center. She is agreeable. I have contacted [facility] and am awaiting callback regarding acceptance. We are inquiring about flight availability from transport companies. Patient has been placed in prone position and we will reassess condition and possible need for intubation based on her response and recommendations from [facility]. Broad-spectrum antibiotic therapy has been started with meropenem and azithromycin at the martita mmendation of the eICU provider. CT angiogram report is pending. Progress Note #4: Time: 09:16 Progress Note I did update the [facility] transfer center regarding the large pleural effusion after discussing potential for emergent thoracentesis with Dr. Kinsey, general surgeon on-call. There may be some significant benefit to evacuating the pleural effusion before transfer, and this may even prevent need for intubation. However, there is some degree of increased risk in doing a thoracentesis on a patient requiring positive pressure ventilation with BiPAP. Dr. Kinsey is agreeable to performing a thoracentesis under ultrasound guidance if that is requested by the [facility] macerator operator. I am waiting for a call back from [facility] to provide direction in that regard. Progress Note #5: Time: 11:14 Progress Note [facility] did request thoracentesis prior to transfer. Dr. Kinsey performed thoracentesis under ultrasound guidance. The procedure is now complete and approximately 1200 mL of pleural fluid was evacuated. Fluid is being sent for studies including cytology, cell counts, culture, AFB studies, etc. Patient has dramatically improved respiratory status and is now stable on high flow oxy mask with oxygen saturation steady at 95%. We will allow her to stay off BiPAP as long as she is comfortable. Bed assignment has been given by [facility]. We are having some difficulty finding available transport but will send her as soon as possible. She will receive a 500 mL normal saline bolus now that the pleural fluid has been evacuated. ECG Initial ECG Impression Date: Nov 13, 2022 Initial ECG Impression Time: 06:46 Initial ECG Rate: 101 Initial ECG Rhythm: S.Tach Comment Sinus tachycardia with no ST elevation or depression. No abnormal intervals or axis deviation. Diagnostic Imaging Diagonstic Imaging: Xray Plain Films/CT/US/NM/MRI: chest Comments Chest x-ray viewed by me and report reviewed. See report below: NAME: JERRY CATALAN [facility] REC#: [id number] PT STATUS: REG ER : 1980 PHYSICIAN: ALVARO ALMEIDA MD ADMIT DATE: 11/13/22/ER Draft Date of Exam:11/13/22 CHEST 1 VIEW, AP/PA ONLY INDICATION: Hypoxia. TECHNIQUE: Single view chest at 7:47 AM. CORRELATION STUDY: 11/10/2022. FINDINGS: There has been development of near complete opacification of the left hemithorax. Right lung is generally stable. Right Flcjbm-n-Esoy is present. There is angulation at the tip suggesting positioning in the azygos vein. Mediastinal structures are largely obscured by the opacity in the left hemithorax. Cardiac enlargement and prominent mediastinum, however, appear present. IMPRESSION: 1. Development of near complete opacification of the left hemithorax which could reflect marked atelectasis or development of a large left pleural effusion along with consolidation/infiltrate. 2. Central line tip likely positioned in the azygos vein. Dictated on workstation # [id number] Dict: 04/01/23 [id number] Trans: 11/13/2214 [id number] Interpreted by: YESY ACOSTA DO Diagonstic Imaging: CT Plain Films/CT/US/NM/MRI: chest Comments CT angiogram chest was viewed by me and report reviewed. See report below: NAME: JERRY CATALAN [facility] REC#: [id number] PT STATUS: REG ER : 1980 PHYSICIAN: ALVARO ALMEIDA MD ADMIT DATE: 11/13/22/ER Signed Date of Exam:11/13/22 CT ANGIO CHEST W (R/O PE) TECHNIQUE: CTA of the chest was performed with contrast bolus timing optimized for evaluation of the pulmonary arteries. 3-D reformats were obtained and reviewed. Dose reduction techniques were utilized. REASON FOR EXAM: Hypoxia. Covid positive. COMPARISON: Chest radiograph performed earlier the same date. CT chest on 05/26/2021. FINDINGS: This helical CT pulmonary angiogram is diagnostic to the subsegmental level branches of the pulmonary artery and demonstrates no pulmonary emboli. The heart and great vessels are unremarkable. There is no pericardial effusion. There is no axillary, mediastinal, or hilar adenopathy. A large left-sided pleural effusion is seen with small right-sided pleural effusion. There is complete atelectasis of the left lung. Subsegmental atelectasis is seen in the right perihilar region and right lung base. No discrete mass. No central endobronchial obstructing lesion. No pneumothorax. Osseous structures appear normal. There is hepatic steatosis. IMPRESSION: 1. No acute pulmonary embolus. 2. Complete opacification of the left hemithorax with large left-sided pleural effusion and complete atelectasis of the left lung. Small right-sided pleural effusion is seen with subsegmental atelectasis in the perihilar region and right lung base. Additional components of infection could also be present. 3. Hepatic steatosis. Dictated by: Dictated on workstation # [id number] Dict: 11/13/2244 Trans: 11/13/2257 ANATOLIY [id number] Interpreted by: ALEXANDER ORTEGA DO Electronically signed by: ALEXANDER ORTEGA DO 11/13/2257 Diagonstic Imaging: Xray Plain Films/CT/US/NM/MRI: chest Comments Repeat chest x-ray was viewed and interpreted by me and compared with prior. There was significant improvement in aeration of the left lung but persistent significant infiltrate. Radiologist report below: NAME: JERRY CATALAN [facility] REC#: [id number] PT STATUS: DEP ER : 1980 PHYSICIAN: ALVARO ALMEIDA MD ADMIT DATE: 11/13/22/ER Signed Date of Exam:11/13/22 CHEST 1 VIEW, AP/PA ONLY INDICATION: Post thoracentesis, COVID. TECHNIQUE: Single view chest at 1:16 PM. CORRELATION STUDY: 11/13/2022. FINDINGS: Improvement in aeration to the left lung post thoracentesis. Opacity and likely effusion, however, do remain, particularly at the left lower lung field. The right lung is generally stable. Heart size is obscured but appears enlarged. There does appear to be increased vascularity as well as prominent mediastinum. Right-sided Haamag-s-Bffo catheter likely remains malpositioned with the tip in the azygos vein. IMPRESSION: 1. Improved aeration post thoracentesis. Infiltrate and/or edema along with effusion of the left hemithorax does persist. Right lung is stable. 2. Continued but perhaps improvement in the severity of vascular congestion as well. Dictated by: Dictated on workstation # [id number] Dict: 11/13/22 1353 Trans: 11/13/22 1503 [id number] Interpreted by: YESY ACOSTA DO Electronically signed by: YESY ACOSTA DO 11/13/22 1503 Critical Care Note Critical Care Start Time: 06:36 Total Time (minutes) 45 Progress 45 minutes of critical care time was dedicated to this patient which included ma nagement of BiPAP, diagnostic work-up, consultation with primary care hospitalist, consultation with eICU, consultation with surgery, supervision of thoracentesis, medication management, arrangement of transfer, bedside care, and communication with patient and family. Departure Impression Primary Impression: Pneumonia due to COVID-19 virus Additional Impressions: Respiratory failure Qualified Codes: J96.01 - Acute respiratory failure with hypoxia Sepsis Qualified Codes: A41.9 - Sepsis, unspecified organism; R65.20 - Severe sepsis without septic shock; J96.01 - Acute respiratory failure with hypoxia Hyponatremia Pleural effusion Disposition: XFER SHT-TRM HOSP Condition: Stable Transfer Transfer Reason: Exceeds level of care Time Spoke to Accepting Phy: 09:00 Transfer Progress Notes Transfer accepted by Dr. Michael Kemp at [facility] at 0924. Transfer Time: 13:15 Transfer Facility: [facility] Method of Transfer: Air Departure-Patient Inst. Referrals: WANDY STARR DO (PCP/Family) Primary Care Physician Copy Copies To 1: WANDY STARR DO Copies To 2: HALLIE KINSEY MD, JOSHUA T MD Nov 13, 2022 07:10
[2022-11-13 07:12] LABS: HEMATOCRIT 35 % (35-52); HEMOGLOBIN 11.3 g/dL (11.5-16.0); LYMPHOCYTES # (AUTO) 0.5 10^3/uL (1.0-4.0); LYMPHOCYTES % (AUTO) 4 % (12-44); MEAN CORPUSCULAR HEMOGLOBIN 30 pg (25-34); MEAN CORPUSCULAR HGB CONC 33 g/dL (32-36); MEAN CORPUSCULAR VOLUME 92 fL (80-99); MONOCYTES # (AUTO) 2.1 10^3/uL (0.0-1.0); MONOCYTES % (AUTO) 14 % (0-12); NEUTROPHILS # (AUTO) 12.1 10^3/uL (1.8-7.8); NEUTROPHILS % (AUTO) 81 % (42-75)
[2022-11-13] MEDS ORDERED: ONDANSETRON 4 MG/2 ML (SDV) Z0FRAN IVP ONE (07:15)
[2022-11-13 07:16] VITALS: BP 157/73
[2022-11-13 07:17] LABS: PLATELET COUNT 80 10^3/uL (130-400)
[2022-11-13 07:29] LABS: BAND NEUTROPHILS 2 %; BASOPHILS % (MANUAL) 0 %; EOSINOPHILS % (MANUAL) 0 %; LYMPHOCYTES % (MANUAL) 1 %; MONOCYTES % (MANUAL) 13 %; NEUTROPHILS % (MANUAL) 82 %; REACTIVE LYMPHOCYTES 2 %
[2022-11-13 07:30] LABS: ALBUMIN 3.6 GM/DL (3.2-4.5); ANISOCYTOSIS MODERATE; CHLORIDE 94 MMOL/L (98-107); POTASSIUM 4.3 MMOL/L (3.6-5.0)
[2022-11-13 07:31] LABS: CALCIUM 8.6 MG/DL (8.5-10.1)
[2022-11-13 07:33] LABS: GLUCOSE 126 MG/DL (70-105); TOTAL PROTEIN 6.9 GM/DL (6.4-8.2)
[2022-11-13 07:34] LABS: BILIRUBIN,TOTAL 2.2 MG/DL (0.1-1.0); CARBON DIOXIDE 17 MMOL/L (21-32)
[2022-11-13 07:36] LABS: ALKALINE PHOSPHATASE 83 U/L (40-136); CREATININE SERUM 0.94 MG/DL (0.60-1.30); GFR ESTIMATED 78
[2022-11-13 07:37] LABS: BUN/CREATININE RATIO 17
[2022-11-13 07:39] LABS: ALANINE AMINOTRANSFERASE 12 U/L (0-55); MAGNESIUM 1.6 MG/DL (1.6-2.4); SODIUM 125 MMOL/L (135-145)
[2022-11-13 07:45] LABS: FIBRIN DEGRADATION PRODUCTS 4.49 UG/ML (0.00-0.49); INR 1.4 (0.8-1.4); PROTHROMBIN TIME PATIENT 17.6 SEC (12.2-14.7)
--- NOTE | 2022-11-13 08:16 | Diagnostic Imaging Report ---
INDICATION: Hypoxia. TECHNIQUE: Single view chest at 7:47 AM. CORRELATION STUDY: 11/10/2022. FINDINGS: There has been development of near complete opacification of the left hemithorax. Right lung is generally stable. Right Isngar-y-Ufpm is present. There is angulation at the tip suggesting positioning in the azygos vein. Mediastinal structures are largely obscured by the opacity in the left hemithorax. Cardiac enlargement and prominent mediastinum, however, appear present. IMPRESSION: 1. Development of near complete opacification of the left hemithorax which could reflect marked atelectasis or development of a large left pleural effusion along with consolidation/infiltrate. 2. Central line tip likely positioned in the azygos vein. Dictated by: Dictated on workstation # [id number]
[2022-11-13] MEDS ORDERED: AZITHROMYCIN INJECTION 500 MG in NS (IVPB) 250 ML IV STA (08:33)
[2022-11-13 08:38] VITALS: BP 135/99
[2022-11-13] MEDS ORDERED: IOHEXOL 350 MG/ML 100 ML (OMNIPAQUE 350) VIAL IV ONE (08:45)
[2022-11-13] MEDS ORDERED: MEROPENEM 1,000 MG in NS (IVPB) 100 ML IV ONE (08:45)
[2022-11-13] MEDS ORDERED: NS 100 ML (IVPB) BAG IV ONE (08:45)
[2022-11-13] MEDS ORDERED: HOLD METFORMIN - RECEIVED CONTRAST 20 ML VIAL IV SCH (08:45)
--- NOTE | 2022-11-13 08:51 | Diagnostic Imaging Report ---
TECHNIQUE: CTA of the chest was performed with contrast bolus timing optimized for evaluation of the pulmonary arteries. 3-D reformats were obtained and reviewed. Dose reduction techniques were utilized. REASON FOR EXAM: Hypoxia. Covid positive. COMPARISON: Chest radiograph performed earlier the same date. CT chest on 05/26/2021. FINDINGS: This helical CT pulmonary angiogram is diagnostic to the subsegmental level branches of the pulmonary artery and demonstrates no pulmonary emboli. The heart and great vessels are unremarkable. There is no pericardial effusion. There is no axillary, mediastinal, or hilar adenopathy. A large left-sided pleural effusion is seen with small right-sided pleural effusion. There is complete atelectasis of the left lung. Subsegmental atelectasis is seen in the right perihilar region and right lung base. No discrete mass. No central endobronchial obstructing lesion. No pneumothorax. Osseous structures appear normal. There is hepatic steatosis. IMPRESSION: 1. No acute pulmonary embolus. 2. Complete opacification of the left hemithorax with large left-sided pleural effusion and complete atelectasis of the left lung. Small right-sided pleural effusion is seen with subsegmental atelectasis in the perihilar region and right lung base. Additional components of infection could also be present. 3. Hepatic steatosis. Dictated by: Dictated on workstation # [id number]
[2022-11-13] MEDS ORDERED: NS (IVPB) 250 ML ONE (08:57)
[2022-11-13 09:18] LABS: CLARITY,URINE SL CLOUDY; COLOR,URINE YELLOW; GLUCOSE, URINE (UA) NEGATIVE (NEGATIVE); KETONES,URINE NEGATIVE (NEGATIVE); LEUKOCYTE ESTERASE ,URINE NEGATIVE (NEGATIVE); NITRITE,URINE NEGATIVE (NEGATIVE); PROTEIN,URINE 1+ (NEGATIVE)
[2022-11-13 09:26] LABS: BACTERIA,URINE NEGATIVE /HPF; BILIRUBIN,URINE 1+ (NEGATIVE); SQUAMOUS EPITHELIAL CELL,UR RARE /HPF
--- NOTE | 2022-11-13 10:58 | Diagnostic Imaging Report ---
INDICATION: Pleural effusion TECHNIQUE: Multiple real time bell scale sonographic images were obtained of the left chest. CORRELATION STUDY: None FINDINGS: Findings are positive for left pleural effusion. IMPRESSION: 1.Positive left pleural effusion. Dictated by: Dictated on workstation # [id number]
[2022-11-13] MEDS ORDERED: NS IV 500 ML 500 ML IV ONE (11:15)
[2022-11-13 12:07] LABS: BODY FLUID RBC COUNT 0.002 10^6/uL; BODY FLUID WBC TOTAL COUNT 1.043 10^3/uL
[2022-11-13 12:29] LABS: GLUCOSE,BODY FLUID 66 MG/DL; TOTAL PROTEIN,BODY FLUID 3.8 G/DL
[2022-11-13 12:30] LABS: LDH,BODY FLUID 322 U/L
[2022-11-13 12:58] LABS: BODY FLUID COLOR YELLOW; BODY FLUID SOURCE PLEURAL
[2022-11-13 12:59] LABS: BODY FLUID APPEARENCE SLT CLDY
[2022-11-13 13:15] VITALS: BP 139/81
--- NOTE | 2022-11-13 13:38 | CONSULTATION REPORT ---
DATE OF SERVICE: 11/13/2022 ATTENDING PRIMARY CARE PHYSICIAN: Dr. Kamini Starr. HISTORY OF PRESENT ILLNESS: The patient is a 42-year-old female known to us. She has a history of multiple medical problems including asthma, Crohn's disease, mostly involving the colon as well as severe variable immunodeficiency, which is being monitored and treated by oncology. She presented to the Emergency Department in respiratory distress with a very low oxygen saturations in the 60s. She states that she has been ill since 11/08 and has had some fevers at home. She was also found to be COVID positive. CTA of the chest as well as an x-ray was done, which did show a large left pleural effusion. PAST MEDICAL HISTORY: Severe variable immunodeficiency gastroesophageal reflux disease, history of colon predominant Crohn's disease, rheumatoid arthritis, depression, anemia and thrombocytopenia. PAST SURGICAL HISTORY: Colon resection x2, multiple port placements, bilateral ankle surgery and tracheostomy. ALLERGIES: [ ] IV glucose, glycine, maltose. MEDICATIONS: Humira 40 mg every 2 weeks, albuterol inhaler 2 puffs q hours p.r.n., albuterol nebulizer every 4 hours, azathioprine 50 mg daily, Zithromax 250 mg daily, bupropion 150 mg daily, cefdinir 300 mg b.i.d., citalopram 40 mg daily, Breo Ellipta 200/25 mcg 1 puff daily. IgG 10% vial 30 grams monthly, loratadine 10 mg daily, methylprednisolone 4 mg every other day, montelukast 10 mg daily, Protonix 40 mg daily, Spiriva 18 mcg 2 puffs daily. SOCIAL HISTORY: Negative smoke, negative alcohol. FAMILY HISTORY: Noncontributory. VITAL SIGNS: Temperature 36.0, pulse 101, respirations 30, pulse ox 98% on oxygen mask. REVIEW OF SYSTEMS: This is a well-nourished female, currently on a BiPAP with significant shortness of breath. She does not report any cough or sputum production. No nausea or vomiting. No diarrhea, no constipation at home. No red blood per rectum, no dark tarry stools. She does state that she has not felt well in a week and has had fevers at home for the past 3 days. No recent inadvertent weight loss. PHYSICAL EXAMINATION: CHEST: Decreased breath sounds, left pleural space with scattered wheezes bilaterally. HEART: Regular. No murmurs. EXTREMITIES: +2/3 bilateral lower extremity edema. Negative Homans sign. HEENT: No scleral icterus. No cervical lymphadenopathy. ABDOMEN: Soft, nontender, nondistended. SKIN: Warm, dry. LABORATORY DATA: WBC 15.0, hemoglobin 11.3, hematocrit 35, platelets 80, BUN 16, creatinine 0.94. ASSESSMENT AND PLAN: A 42-year-old female with a history of multiple medical problems, also more associated with autoimmune dysfunction including severe variable immunodeficiency, asthma, rheumatoid arthritis and Crohn's disease. She was found to be COVID positive and was also found to have a large left pleural effusion with symptomatic shortness of breath. The patient will be transferred to [facility] due to the complexity of her case; however, we will proceed with thoracentesis before transfer in hopes of allowing her to ventilate easier. Job ID: [id number] DocumentID: [id number] Dictated Date: 11/13/2022 12:38:20 Manager Photo Date: 11/13/2022 13:36:00 Dictated By: HALLIE KINSEY MD
--- NOTE | 2022-11-13 14:00 | Diagnostic Imaging Report ---
INDICATION: Post thoracentesis, COVID. TECHNIQUE: Single view chest at 1:16 PM. CORRELATION STUDY: 11/13/2022. FINDINGS: Improvement in aeration to the left lung post thoracentesis. Opacity and likely effusion, however, do remain, particularly at the left lower lung field. The right lung is generally stable. Heart size is obscured but appears enlarged. There does appear to be increased vascularity as well as prominent mediastinum. Right-sided Gceibr-o-Eytx catheter likely remains malpositioned with the tip in the azygos vein. IMPRESSION: 1. Improved aeration post thoracentesis. Infiltrate and/or edema along with effusion of the left hemithorax does persist. Right lung is stable. 2. Continued but perhaps improvement in the severity of vascular congestion as well. Dictated by: Dictated on workstation # [id number]
--- NOTE | 2022-11-13 16:01 | OPERATIVE REPORT ---
DATE OF SERVICE: 11/13/2022 ATTENDING PRIMARY CARE PHYSICIAN: Dr. Kamini Starr. PREOPERATIVE DIAGNOSIS: Symptomatic left pleural effusion. POSTOPERATIVE DIAGNOSIS: Symptomatic left pleural effusion. PROCEDURE: Left thoracentesis. SURGEON: Hallie Kinsey MD. ANESTHESIA: Local. ESTIMATED BLOOD LOSS: 1150 mL of straw yellow transudative fluid. DISPOSITION: The patient tolerated the procedure well. INDICATIONS: The patient is a 42-year-old female known to us. She has multiple medical problems associated with autoimmune dysfunction including asthma, severe variable immunodeficiency, rheumatoid arthritis and Crohn's disease. We have previously placed ports in her for IV access. She presented with significant shortness of breath and was found to be COVID positive as well as have a large left pleural effusion. Due to the complexity of her case, the patient will be transferred to [facility]; however, will need thoracentesis to help her with ventilation and avoid intubation. Before the procedure, an ultrasound was performed of the left posterior chest. The back was then prepped and draped in standard surgical fashion. A 1% lidocaine was then used to anesthetize the skin, subcutaneous tissue and muscle layers as well as the parietal pleura. A vertical skin incision was then made using a #11 blade and the trocar and catheter were then inserted withdrawing of straw yellow transudative fluid. The catheter was then advanced over the trocar without any resistance. Catheter was then connected to vacuum bottles where 1150 mL of the same straw yellow transudative fluid evacuated. Once fully evacuated, the catheter was removed while applying direct pressure and an Op-Site. The patient tolerated the procedure well. We will get a post-procedure chest x-ray and await transfer to a tertiary center. Job ID: [id number] DocumentID: [id number] Dictated Date: 11/13/2022 12:42:17 Art Handler Date: 11/13/2022 15:58:00 Dictated By: HALLIE KINSEY MD
== END 2022-11-13 13:15 | disposition short-term general hospital (02) ==
LOC: EDUNIT# 06:26 → ER 06:29
DX: U07.1 COVID-19 (principal); J12.82 Pneumonia due to coronavirus disease 2019; J96.90 Respiratory failure, unspecified, unspecified whether with hypoxia or hypercapnia; J91.8 Pleural effusion in other conditions classified elsewhere; D81.9 Combined immunodeficiency, unspecified; G47.30 Sleep apnea, unspecified; A41.9 Sepsis, unspecified organism; R65.20 Severe sepsis without septic shock; E87.1 Hypo-osmolality and hyponatremia; R11.0 Nausea; R50.9 Fever, unspecified; Z99.89 Dependence on other enabling machines and devices; Z79.620 Long term (current) use of immunosuppressive biologic
CPT/HCPCS: 36415; 51702; 71045; 71275; 80053; 81000; 82945; 83605; 83615; 83735; 83874; 83880; 84157; 84484; 85007; 85027; 85379; 85610; 85730; 86141; 87040; 87070; 87075; 87088; 87101; 87116; 87205; 87206; 87636; 89051; 93005; 93041

== ENCOUNTER → 2022-11-24 | Outpatient (CLI) | payer BC | LOC: CARD 08:30 | PROVIDERS: ATTEND Family Medicine | DX: I51.7 Cardiomegaly (principal); J81.1 Chronic pulmonary edema; R92.2 Inconclusive mammogram | CPT/HCPCS: 93306 ==

== ENCOUNTER 2022-12-09 09:38 | Outpatient (RCR) | payer BC ==
[~2022-12-09 09:38] MED LIST changes: +ACETAMINOPHEN 325 MG TABLET PO PRN; +HEParin (CENTRAL IV FLUSH) 500 UNIT/5 ML SYR IV PRN; +IVIG 10 GM (PRIVIGEN) 100 ML IV SCH; +IVIG 20 GM (PRIVIGEN) 200 ML IV SCH; +diphenhydrAMINE 25 MG TAB (BENADRYL) PO SCH; +diphenhydrAMINE 50 MG/ML INJ (BENADRYL) IV PRN
[2022-12-09 10:05] LABS: EOSINOPHILS # (AUTO) 0.1 10^3/uL (0.0-0.3); HEMOGLOBIN 10.1 g/dL (11.5-16.0); LYMPHOCYTES % (AUTO) 29 % (12-44); MEAN CORPUSCULAR VOLUME 99 fL (80-99); MONOCYTES # (AUTO) 0.2 10^3/uL (0.0-1.0)
[2022-12-09 10:07] LABS: BASOPHILS % (AUTO) 1 % (0-10); EOSINOPHILS % (AUTO) 5 % (0-10); HEMATOCRIT 32 % (35-52); LYMPHOCYTES # (AUTO) 0.4 10^3/uL (1.0-4.0); MEAN CORPUSCULAR HEMOGLOBIN 32 pg (25-34); MEAN CORPUSCULAR HGB CONC 32 g/dL (32-36); MONOCYTES % (AUTO) 11 % (0-12); NEUTROPHILS # (AUTO) 0.8 10^3/uL (1.8-7.8); NEUTROPHILS % (AUTO) 55 % (42-75); WHITE BLOOD COUNT 1.5 10^3/uL (4.3-11.0)
[2022-12-09 10:11] LABS: PLATELET COUNT 20 10^3/uL (130-400); SMEAR SCAN COMMENT YES
[2022-12-09 10:30] LABS: ALBUMIN 3.8 GM/DL (3.2-4.5); BILIRUBIN,TOTAL 1.1 MG/DL (0.1-1.0); CALCIUM 8.7 MG/DL (8.5-10.1); CREATININE SERUM 0.83 MG/DL (0.60-1.30); POTASSIUM 3.7 MMOL/L (3.6-5.0); TOTAL PROTEIN 5.6 GM/DL (6.4-8.2)
== END 2022-12-12 ==
LOC: ONC 09:38
PROVIDERS: ATTEND Internal Medicine Hematology & Oncology
DX: Z51.11 Encounter for antineoplastic chemotherapy (principal); Z45.2 Encounter for adjustment and management of vascular access device; D80.1 Nonfamilial hypogammaglobulinemia; E66.01 Morbid (severe) obesity due to excess calories; D69.6 Thrombocytopenia, unspecified; J45.909 Unspecified asthma, uncomplicated; R94.5 Abnormal results of liver function studies; K50.90 Crohn's disease, unspecified, without complications
CPT/HCPCS: 36591; 80053; 85025; 96365; 96366

== ENCOUNTER 2023-01-06 09:23 | Outpatient (RCR) | payer BC ==
[~2023-01-06] VITALS: Ht 160 cm; Wt 124.1 kg
[2023-01-06 09:47] LABS: HEMOGLOBIN 11.7 g/dL (11.5-16.0)
[2023-01-06 09:48] LABS: BASOPHILS % (AUTO) 1 % (0-10); EOSINOPHILS % (AUTO) 2 % (0-10); HEMATOCRIT 35 % (35-52); LYMPHOCYTES # (AUTO) 0.4 10^3/uL (1.0-4.0); LYMPHOCYTES % (AUTO) 19 % (12-44); MEAN CORPUSCULAR HEMOGLOBIN 35 pg (25-34); MEAN CORPUSCULAR HGB CONC 34 g/dL (32-36); MEAN CORPUSCULAR VOLUME 102 fL (80-99); MONOCYTES # (AUTO) 0.2 10^3/uL (0.0-1.0); MONOCYTES % (AUTO) 10 % (0-12); NEUTROPHILS # (AUTO) 1.5 10^3/uL (1.8-7.8); NEUTROPHILS % (AUTO) 69 % (42-75); WHITE BLOOD COUNT 2.1 10^3/uL (4.3-11.0)
[2023-01-06 09:54] LABS: PLATELET COUNT 30 10^3/uL (130-400)
[2023-01-06 10:03] VITALS: BP 130/76
[2023-01-06 10:04] LABS: ALBUMIN 3.9 GM/DL (3.2-4.5); BILIRUBIN,TOTAL 1.2 MG/DL (0.1-1.0); CALCIUM 8.7 MG/DL (8.5-10.1); CREATININE SERUM 0.89 MG/DL (0.60-1.30); POTASSIUM 3.5 MMOL/L (3.6-5.0); TOTAL PROTEIN 5.9 GM/DL (6.4-8.2)
== END 2023-01-12 | disposition home or self-care (01) ==
LOC: ONC 09:23
PROVIDERS: ATTEND Internal Medicine Hematology & Oncology
DX: Z51.12 Encounter for antineoplastic immunotherapy (principal); Z45.2 Encounter for adjustment and management of vascular access device; D80.1 Nonfamilial hypogammaglobulinemia; E66.01 Morbid (severe) obesity due to excess calories; D69.6 Thrombocytopenia, unspecified; J45.909 Unspecified asthma, uncomplicated; R94.5 Abnormal results of liver function studies; K50.90 Crohn's disease, unspecified, without complications
CPT/HCPCS: 80053; 82728; 83540; 83550; 85025; 96365; 96366; 96375; 96523

== ENCOUNTER → 2023-01-25 | Outpatient (CLI) | payer BC ==
[~2023-01-25] MED LIST changes: -ACETAMINOPHEN 325 MG TABLET PO PRN; -HEParin (CENTRAL IV FLUSH) 500 UNIT/5 ML SYR IV PRN; -IVIG 10 GM (PRIVIGEN) 100 ML IV SCH; -IVIG 20 GM (PRIVIGEN) 200 ML IV SCH; -diphenhydrAMINE 25 MG TAB (BENADRYL) PO SCH; -diphenhydrAMINE 50 MG/ML INJ (BENADRYL) IV PRN
--- NOTE | 2023-01-25 13:30 | Diagnostic Imaging Report ---
Indication: Intermittent asthma. COMPARISON: 11/13/2022 FINDINGS: Frontal and lateral radiographic views of the chest were obtained and show mild enlargement cardiac silhouette and mild prominence of pulmonary vasculature. Small bibasilar effusions are also noted. There is no pneumothorax. Osseous structures show no gross acute abnormalities. Right internal jugular Port-A-Cath is noted. Tip appears to extend into the azygos vein. IMPRESSION: 1. Mild cardiomegaly with pulmonary vascular congestion and small bibasilar effusions. Dictated by: Dictated on workstation # [id number]
== END ==
LOC: RAD 09:03
PROVIDERS: ATTEND Nurse Practitioner Family
DX: I51.7 Cardiomegaly (principal); U07.1 COVID-19; J45.20 Mild intermittent asthma, uncomplicated; D84.9 Immunodeficiency, unspecified; R09.89 Other specified symptoms and signs involving the circulatory and respiratory systems
CPT/HCPCS: 71046

== ENCOUNTER 2023-02-03 08:57 | Outpatient (RCR) | payer BC ==
[~2023-02-03] VITALS: Ht 160.2 cm; Wt 123.5 kg
[~2023-02-03 08:57] MED LIST changes: +ACETAMINOPHEN 325 MG TABLET PO PRN; +HEParin (CENTRAL IV FLUSH) 500 UNIT/5 ML SYR IV PRN; +IVIG 10 GM (PRIVIGEN) 100 ML IV SCH; +IVIG 20 GM (PRIVIGEN) 200 ML IV SCH; +diphenhydrAMINE 25 MG TAB (BENADRYL) PO SCH; +diphenhydrAMINE 50 MG/ML INJ (BENADRYL) IV PRN
[2023-02-03 09:33] VITALS: BP 131/72
[2023-02-03 09:34] LABS: BASOPHILS % (AUTO) 1 % (0-10); MEAN CORPUSCULAR VOLUME 104 fL (80-99); MONOCYTES # (AUTO) 0.3 10^3/uL (0.0-1.0)
[2023-02-03 09:37] LABS: EOSINOPHILS # (AUTO) 0.1 10^3/uL (0.0-0.3); EOSINOPHILS % (AUTO) 3 % (0-10); HEMATOCRIT 35 % (35-52); HEMOGLOBIN 11.5 g/dL (11.5-16.0); LYMPHOCYTES # (AUTO) 0.4 10^3/uL (1.0-4.0); LYMPHOCYTES % (AUTO) 19 % (12-44); MEAN CORPUSCULAR HEMOGLOBIN 34 pg (25-34); MEAN CORPUSCULAR HGB CONC 33 g/dL (32-36); MEAN PLATELET VOLUME 13.4 fL (9.0-12.2); MONOCYTES % (AUTO) 16 % (0-12); NEUTROPHILS # (AUTO) 1.4 10^3/uL (1.8-7.8); NEUTROPHILS % (AUTO) 62 % (42-75); PLATELET COUNT 49 10^3/uL (130-400); WHITE BLOOD COUNT 2.2 10^3/uL (4.3-11.0)
[2023-02-03 09:44] VITALS: BP 131/72
[2023-02-03 09:53] LABS: ALBUMIN 3.7 GM/DL (3.2-4.5); BILIRUBIN,TOTAL 0.9 MG/DL (0.1-1.0); CALCIUM 9.2 MG/DL (8.5-10.1); CREATININE SERUM 0.83 MG/DL (0.60-1.30); POTASSIUM 3.5 MMOL/L (3.6-5.0); TOTAL PROTEIN 5.8 GM/DL (6.4-8.2)
== END 2023-02-11 | disposition home or self-care (01) ==
LOC: ONC 08:57
PROVIDERS: ATTEND Internal Medicine Hematology & Oncology
DX: Z51.12 Encounter for antineoplastic immunotherapy (principal); Z45.2 Encounter for adjustment and management of vascular access device; D61.818 Other pancytopenia; D80.1 Nonfamilial hypogammaglobulinemia; E66.01 Morbid (severe) obesity due to excess calories; J45.909 Unspecified asthma, uncomplicated; R94.5 Abnormal results of liver function studies; K50.90 Crohn's disease, unspecified, without complications
CPT/HCPCS: 36591; 80053; 85025; 96365; 96366

== ENCOUNTER 2023-03-10 08:28 | Outpatient (RCR) | payer BC ==
[~2023-03-10] VITALS: Ht 160 cm; Wt 124.2 kg
[~2023-03-10 08:28] MED LIST changes: -diphenhydrAMINE 25 MG TAB (BENADRYL) PO SCH; +diphenhydrAMINE 25 MG TABLET PO SCH; -diphenhydrAMINE 50 MG/ML INJ (BENADRYL) IV PRN; +diphenhydrAMINE INJ 50 MG/ML VIAL IV PRN
[2023-03-10 09:23] LABS: BASOPHILS % (AUTO) 0 % (0-10); EOSINOPHILS # (AUTO) 0.1 10^3/uL (0.0-0.3); EOSINOPHILS % (AUTO) 2 % (0-10); HEMATOCRIT 33 % (35-52); HEMOGLOBIN 11.1 g/dL (11.5-16.0); LYMPHOCYTES # (AUTO) 0.4 10^3/uL (1.0-4.0); LYMPHOCYTES % (AUTO) 17 % (12-44); MEAN CORPUSCULAR HEMOGLOBIN 36 pg (25-34); MEAN CORPUSCULAR HGB CONC 34 g/dL (32-36); MEAN CORPUSCULAR VOLUME 107 fL (80-99); MONOCYTES # (AUTO) 0.3 10^3/uL (0.0-1.0); MONOCYTES % (AUTO) 14 % (0-12); NEUTROPHILS # (AUTO) 1.5 10^3/uL (1.8-7.8); NEUTROPHILS % (AUTO) 66 % (42-75); PLATELET COUNT 41 10^3/uL (130-400); WHITE BLOOD COUNT 2.3 10^3/uL (4.3-11.0)
[2023-03-10 09:28] VITALS: BP 145/76
[2023-03-10 09:42] LABS: ALBUMIN 3.7 GM/DL (3.2-4.5); BILIRUBIN,TOTAL 0.9 MG/DL (0.1-1.0); CALCIUM 8.8 MG/DL (8.5-10.1); CREATININE SERUM 0.85 MG/DL (0.60-1.30); POTASSIUM 3.8 MMOL/L (3.6-5.0); TOTAL PROTEIN 5.7 GM/DL (6.4-8.2)
== END 2023-03-14 | disposition home or self-care (01) ==
LOC: ONC 08:28
PROVIDERS: ATTEND Internal Medicine Hematology & Oncology
DX: Z51.11 Encounter for antineoplastic chemotherapy (principal); Z45.2 Encounter for adjustment and management of vascular access device; D61.818 Other pancytopenia; D80.1 Nonfamilial hypogammaglobulinemia; E66.01 Morbid (severe) obesity due to excess calories; J45.909 Unspecified asthma, uncomplicated; R94.5 Abnormal results of liver function studies; K50.90 Crohn's disease, unspecified, without complications
CPT/HCPCS: 36415; 80053; 85025; 96365; 96366; 96523

== ENCOUNTER 2023-04-07 07:31 | Outpatient (RCR) | payer BC ==
[~2023-04-07] VITALS: Ht 160 cm; Wt 124.3 kg
[~2023-04-07 07:31] MED LIST changes: -ACETAMINOPHEN 325 MG TABLET PO PRN; -HEParin (CENTRAL IV FLUSH) 500 UNIT/5 ML SYR IV PRN; -IVIG 10 GM (PRIVIGEN) 100 ML IV SCH; -IVIG 20 GM (PRIVIGEN) 200 ML IV SCH; -diphenhydrAMINE 25 MG TABLET PO SCH; -diphenhydrAMINE INJ 50 MG/ML VIAL IV PRN
[2023-04-07] MEDS ORDERED: IVIG 10 GM (PRIVIGEN) 100 ML IV SCH (08:03)
[2023-04-07] MEDS ORDERED: ACETAMINOPHEN 325 MG TABLET PO PRN (08:03)
[2023-04-07] MEDS ORDERED: diphenhydrAMINE 25 MG TABLET PO SCH (08:03)
[2023-04-07] MEDS ORDERED: diphenhydrAMINE INJ 50 MG/ML VIAL IV PRN (08:03)
[2023-04-07] MEDS ORDERED: IVIG 20 GM (PRIVIGEN) 200 ML IV SCH (08:03)
[2023-04-07] MEDS ORDERED: HEParin (CENTRAL IV FLUSH) 500 UNIT/5 ML SYR IV PRN (08:03)
[2023-04-07 09:05] VITALS: BP 139/79
[2023-04-07 09:39] LABS: BASOPHILS % (AUTO) 0 % (0-10); EOSINOPHILS # (AUTO) 0.1 10^3/uL (0.0-0.3); EOSINOPHILS % (AUTO) 2 % (0-10); HEMATOCRIT 36 % (35-52); HEMOGLOBIN 11.6 g/dL (11.5-16.0); LYMPHOCYTES # (AUTO) 0.4 10^3/uL (1.0-4.0); LYMPHOCYTES % (AUTO) 14 % (12-44); MEAN CORPUSCULAR HEMOGLOBIN 37 pg (25-34); MEAN CORPUSCULAR HGB CONC 33 g/dL (32-36); MEAN CORPUSCULAR VOLUME 113 fL (80-99); MONOCYTES # (AUTO) 0.3 10^3/uL (0.0-1.0); MONOCYTES % (AUTO) 10 % (0-12); NEUTROPHILS # (AUTO) 2.1 10^3/uL (1.8-7.8); NEUTROPHILS % (AUTO) 74 % (42-75); WHITE BLOOD COUNT 2.9 10^3/uL (4.3-11.0)
[2023-04-07 09:42] LABS: PLATELET COUNT 38 10^3/uL (130-400)
[2023-04-07 09:57] LABS: ALBUMIN 3.8 GM/DL (3.2-4.5); BILIRUBIN,TOTAL 0.9 MG/DL (0.1-1.0); CALCIUM 8.6 MG/DL (8.5-10.1); CREATININE SERUM 0.86 MG/DL (0.60-1.30); POTASSIUM 3.8 MMOL/L (3.6-5.0); TOTAL PROTEIN 5.8 GM/DL (6.4-8.2)
== END 2023-04-14 | disposition home or self-care (01) ==
LOC: ONC 07:31
PROVIDERS: ATTEND Internal Medicine Hematology & Oncology
DX: Z51.12 Encounter for antineoplastic immunotherapy (principal); Z45.2 Encounter for adjustment and management of vascular access device; D61.818 Other pancytopenia; D80.1 Nonfamilial hypogammaglobulinemia; E66.01 Morbid (severe) obesity due to excess calories; J45.909 Unspecified asthma, uncomplicated; R94.5 Abnormal results of liver function studies; K50.90 Crohn's disease, unspecified, without complications
CPT/HCPCS: 36591; 80053; 82784; 85025; 96365; 96366

== ENCOUNTER 2023-05-05 08:03 | Outpatient (RCR) | payer BC, OTHER ==
[~2023-05-05] VITALS: Ht 160 cm; Wt 124.5 kg
[~2023-05-05 08:03] MED LIST changes: +ACETAMINOPHEN 325 MG TABLET PO PRN; +HEParin (CENTRAL IV FLUSH) 500 UNIT/5 ML SYR IV PRN; +IVIG 10 GM (PRIVIGEN) 100 ML IV SCH; +IVIG 20 GM (PRIVIGEN) 200 ML IV SCH; +diphenhydrAMINE 25 MG TABLET PO SCH; +diphenhydrAMINE INJ 50 MG/ML VIAL IV PRN
[2023-05-05 09:30] VITALS: BP 140/76
[2023-05-05 10:07] LABS: BASOPHILS % (AUTO) 0 % (0-10); EOSINOPHILS # (AUTO) 0.1 10^3/uL (0.0-0.3); HEMOGLOBIN 12.2 g/dL (11.5-16.0); LYMPHOCYTES # (AUTO) 0.4 10^3/uL (1.0-4.0)
[2023-05-05 10:09] LABS: EOSINOPHILS % (AUTO) 3 % (0-10); HEMATOCRIT 36 % (35-52); LYMPHOCYTES % (AUTO) 13 % (12-44); MEAN CORPUSCULAR HEMOGLOBIN 37 pg (25-34); MEAN CORPUSCULAR HGB CONC 34 g/dL (32-36); MEAN CORPUSCULAR VOLUME 110 fL (80-99); MEAN PLATELET VOLUME 13.7 fL (9.0-12.2); MONOCYTES # (AUTO) 0.3 10^3/uL (0.0-1.0); MONOCYTES % (AUTO) 12 % (0-12); NEUTROPHILS % (AUTO) 72 % (42-75); WHITE BLOOD COUNT 2.7 10^3/uL (4.3-11.0)
[2023-05-05 10:20] LABS: PLATELET COUNT 39 10^3/uL (130-400)
[2023-05-05 10:37] LABS: ALBUMIN 3.8 GM/DL (3.2-4.5); BILIRUBIN,TOTAL 0.8 MG/DL (0.1-1.0); CALCIUM 9.4 MG/DL (8.5-10.1); CREATININE SERUM 0.94 MG/DL (0.60-1.30); POTASSIUM 4.2 MMOL/L (3.6-5.0)
== END 2023-05-14 | disposition home or self-care (01) ==
LOC: ONC 08:03
PROVIDERS: ATTEND Internal Medicine Hematology & Oncology
DX: Z51.12 Encounter for antineoplastic immunotherapy (principal); Z45.2 Encounter for adjustment and management of vascular access device; D61.818 Other pancytopenia; D80.1 Nonfamilial hypogammaglobulinemia; E66.01 Morbid (severe) obesity due to excess calories; J45.909 Unspecified asthma, uncomplicated; R94.5 Abnormal results of liver function studies; K50.90 Crohn's disease, unspecified, without complications
CPT/HCPCS: 36591; 80053; 85025; 96365; 96366

== ENCOUNTER → 2023-05-23 | Outpatient (CLI) | payer OTHER ==
[~2023-05-23] MED LIST changes: -ACETAMINOPHEN 325 MG TABLET PO PRN; -HEParin (CENTRAL IV FLUSH) 500 UNIT/5 ML SYR IV PRN; -IVIG 10 GM (PRIVIGEN) 100 ML IV SCH; -IVIG 20 GM (PRIVIGEN) 200 ML IV SCH; -diphenhydrAMINE 25 MG TABLET PO SCH; -diphenhydrAMINE INJ 50 MG/ML VIAL IV PRN
--- NOTE | 2023-05-24 11:33 | Diagnostic Imaging Report ---
INDICATION: Screening. EXAMINATION: Bilateral digital 2D and 3D screening with CAD. COMPARISON: February 2022. BREAST DENSITY: 2. FINDINGS: No breast mass, spiculated lesion, architectural distortion, suspicious calcifications, or changes to suggest malignancy. An Qnzdif-j-Gnai catheter port projects over the right axilla. IMPRESSION: Negative. ACR BI-RADS Category 1: Negative. Result letter will be mailed to the patient. Note: At least 10% of breast cancer is not imaged by mammography. Dictated by: Dictated on workstation # [id number]
== END ==
LOC: RAD 11:30
PROVIDERS: ATTEND Nurse Practitioner
DX: Z12.31 Encounter for screening mammogram for malignant neoplasm of breast (principal)
CPT/HCPCS: 77063; 77067

== ENCOUNTER → 2023-05-23 | Outpatient (CLI) | payer OTHER ==
[~2023-05-23] MED LIST changes: +RT-ALBUTEROL SULF 2.5 MG/3 ML PRE-MIX VIAL INH ONE
== END ==
LOC: RT 12:27
PROVIDERS: ATTEND Nurse Practitioner Family
DX: J30.1 Allergic rhinitis due to pollen (principal); J45.20 Mild intermittent asthma, uncomplicated; J96.01 Acute respiratory failure with hypoxia
CPT/HCPCS: 94060; 94621; 94726; 94729

== ENCOUNTER 2023-06-02 08:29 | Outpatient (RCR) | payer OTHER ==
[~2023-06-02] VITALS: Ht 160 cm; Wt 128.7 kg
[~2023-06-02 08:29] MED LIST changes: +ACETAMINOPHEN 325 MG TABLET PO PRN; +HEParin (CENTRAL IV FLUSH) 500 UNIT/5 ML SYR IV PRN; +IVIG 10 GM (PRIVIGEN) 100 ML IV SCH; +IVIG 20 GM (PRIVIGEN) 200 ML IV SCH; -RT-ALBUTEROL SULF 2.5 MG/3 ML PRE-MIX VIAL INH ONE; +diphenhydrAMINE 25 MG TABLET PO SCH; +diphenhydrAMINE INJ 50 MG/ML VIAL IV PRN
[2023-06-02 09:34] LABS: EOSINOPHILS # (AUTO) 0.1 10^3/uL (0.0-0.3); MEAN CORPUSCULAR VOLUME 108 fL (80-99); MEAN PLATELET VOLUME 13.6 fL (9.0-12.2)
[2023-06-02 09:36] LABS: BASOPHILS % (AUTO) 0 % (0-10); EOSINOPHILS % (AUTO) 3 % (0-10); HEMATOCRIT 38 % (35-52); HEMOGLOBIN 12.9 g/dL (11.5-16.0); LYMPHOCYTES # (AUTO) 0.4 10^3/uL (1.0-4.0); LYMPHOCYTES % (AUTO) 14 % (12-44); MEAN CORPUSCULAR HEMOGLOBIN 37 pg (25-34); MEAN CORPUSCULAR HGB CONC 34 g/dL (32-36); MONOCYTES # (AUTO) 0.4 10^3/uL (0.0-1.0); MONOCYTES % (AUTO) 11 % (0-12); NEUTROPHILS # (AUTO) 2.3 10^3/uL (1.8-7.8); NEUTROPHILS % (AUTO) 71 % (42-75); WHITE BLOOD COUNT 3.2 10^3/uL (4.3-11.0)
[2023-06-02 09:39] LABS: PLATELET COUNT 51 10^3/uL (130-400)
[2023-06-02 09:51] LABS: ALBUMIN 3.8 GM/DL (3.2-4.5); BILIRUBIN,TOTAL 1.2 MG/DL (0.1-1.0); CREATININE SERUM 0.86 MG/DL (0.60-1.30); POTASSIUM 4.1 MMOL/L (3.6-5.0); TOTAL PROTEIN 6.3 GM/DL (6.4-8.2)
[2023-06-02 10:00] VITALS: BP 133/87
== END 2023-06-14 | disposition home or self-care (01) ==
LOC: ONC 08:29
PROVIDERS: ATTEND Internal Medicine Hematology & Oncology
DX: Z51.12 Encounter for antineoplastic immunotherapy (principal); Z45.2 Encounter for adjustment and management of vascular access device; D61.818 Other pancytopenia; D80.1 Nonfamilial hypogammaglobulinemia; E66.01 Morbid (severe) obesity due to excess calories; J45.909 Unspecified asthma, uncomplicated; R94.5 Abnormal results of liver function studies; K50.90 Crohn's disease, unspecified, without complications
CPT/HCPCS: 80053; 82784 ×3; 85025; 96365; 96366; G0463; 36591; 99214

== ENCOUNTER 2023-06-30 08:00 | Outpatient (RCR) | payer OTHER ==
[~2023-06-30] VITALS: Ht 160 cm; Wt 127.8 kg
[2023-06-30 09:05] VITALS: BP 130/73
[2023-06-30 09:25] LABS: BASOPHILS % (AUTO) 0 % (0-10); HEMOGLOBIN 11.6 g/dL (11.5-16.0); LYMPHOCYTES # (AUTO) 0.3 10^3/uL (1.0-4.0)
[2023-06-30 09:27] LABS: EOSINOPHILS # (AUTO) 0.1 10^3/uL (0.0-0.3); EOSINOPHILS % (AUTO) 3 % (0-10); HEMATOCRIT 34 % (35-52); LYMPHOCYTES % (AUTO) 12 % (12-44); MEAN CORPUSCULAR HEMOGLOBIN 37 pg (25-34); MEAN CORPUSCULAR HGB CONC 34 g/dL (32-36); MEAN CORPUSCULAR VOLUME 108 fL (80-99); MEAN PLATELET VOLUME 12.9 fL (9.0-12.2); MONOCYTES # (AUTO) 0.3 10^3/uL (0.0-1.0); MONOCYTES % (AUTO) 10 % (0-12); NEUTROPHILS # (AUTO) 2.1 10^3/uL (1.8-7.8); NEUTROPHILS % (AUTO) 75 % (42-75); PLATELET COUNT 43 10^3/uL (130-400); WHITE BLOOD COUNT 2.8 10^3/uL (4.3-11.0)
[2023-06-30 09:44] LABS: ALBUMIN 3.6 GM/DL (3.2-4.5); BILIRUBIN,TOTAL 1.2 MG/DL (0.1-1.0); CALCIUM 8.8 MG/DL (8.5-10.1); CREATININE SERUM 0.83 MG/DL (0.60-1.30); POTASSIUM 3.7 MMOL/L (3.6-5.0); TOTAL PROTEIN 5.8 GM/DL (6.4-8.2)
== END 2023-07-14 | disposition home or self-care (01) ==
LOC: ONC 08:00
PROVIDERS: ATTEND Internal Medicine Hematology & Oncology
DX: Z51.11 Encounter for antineoplastic chemotherapy (principal); Z45.2 Encounter for adjustment and management of vascular access device; D61.818 Other pancytopenia; D80.1 Nonfamilial hypogammaglobulinemia; E66.01 Morbid (severe) obesity due to excess calories; J45.909 Unspecified asthma, uncomplicated; R94.5 Abnormal results of liver function studies; K50.90 Crohn's disease, unspecified, without complications
CPT/HCPCS: 36591; 80053; 85025; 96365; 96366